=== PATIENT | male | born 1945 | race Caucasian/White ===

== ENCOUNTER → 2017-09-13 | Day surgery (SDC) | payer OTHER ==
[2017-09-06 15:10] VITALS: BMI 32.0
[~2017-09-13] VITALS: Ht 180.3 cm; Wt 106.8 kg
[~2017-09-13] MED LIST: ALL300 PO; AMLO-114 PO; AMOX500C3 PO; ATOR-26 PO; CARV25TA2 PO; CHOL2000 PO; CLON0.3D5 PO; FERR325T5 PO; GLIM4TAB PO; LACT1LOT3; LATA0.5S OP; LEVO50TA6 PO; LIDOCAINE HCL 2% 2 ML VIAL (20MG/ML) ONE; LISI40TA PO; LSX40 PO; MAGN400T6 PO; METF-384 PO; ONDANSETRON INJ 2 MG/ML 2 ML VIAL IV PRN; PIOG1TAB20 PO; POTA10CA28 PO; PRLSR20 PO; PROPOFOL IV EMULSION 10 MG/ML 20 ML VIAL ONE; TRAM-10 PO
[2017-09-13 12:53] VITALS: Ht 180.3 cm; Wt 106.8 kg
--- NOTE | 2017-09-13 13:07 | Endo History and Physical ---
History & Physical Date of Service: September 13, 2017. Chief Complaint: BARRETTS IRON DEFICIENCY ANEMIA Referring Physician: DR STRICKLAND History of Present Illness Patient referred for an upper endoscopy due to history of Fajardo's esophagus. He also has a question of anemia with iron deficiency although ferritin levels are not available for review. Past Medical History Diabetes, Arthritis, Reflux, High Cholesterol, Sleep Apnea, Heart Disease, CHF, Hypertension, Kidney Disease, Valve Replacement Past Surgical History Hx Cardiac Surgery: Yes (AORTIC VALVE REPLACEMENT 2009) Hx Internal Defibrillator: No Hx Pacemaker: No Hx Abdominal Surgery: No Hx of Implantable Prosthesis: No Hx Post-Op Nausea and Vomiting: No Hx Cancer Surgery: No Hx Thoracic Surgery: No Hx Orthopedic: Yes (LT/RT TKA) Hx Urinary Tract Surgery: No Family History None Social History Smoking Status: Former Smoker Hx Substance Use: No Hx Alcohol Use: Yes (MINIMAL) Allergies Coded Allergies: Aspirin (Verified Adverse Reaction, Severe, gi bleed, 09/13/17) Warfarin (Verified Adverse Reaction, Unknown, "bleeding with anticoagulants", 09/13/17) Current Medications Reported Home Medications Medications Dose Route/Sig Max Daily Dose Days Date Category Glucophage (Metformin Hcl) 1,000 Mg Tab 1,000 Mg PO BID 09/06/17 Reported Mag-Ox (Magnesium Oxide) 400 Mg Tab 400 Mg PO DAILY 09/06/17 Reported Vitamin D3 (Cholecalciferol) 2,000 Unit Cap 1 Cap PO DAILY 30 09/06/17 Reported Amoxil (Amoxicillin) 500 Mg Cap 500 Mg PO UD 09/06/17 Reported Amlactin (Lactic Acid (Ammonium Lactate)) 12 % Lot 09/06/17 Reported Furosemide 40 Mg Tab 1.5 Tabs PO BID 09/06/17 Reported Clonidine Hcl 0.3 Mg/24 Hr Dis 1 Tab PO BID 09/06/17 Reported Pioglitazone Hcl 45 Mg Tab 1 Tab PO QAM 09/06/17 Reported Levothyroxine Sodium 50 Mcg Tab 1 Tab PO DAILY 30 09/06/17 Reported Ferrous Sulfate 325 Mg Tab 1 Tab PO QID 09/06/17 Reported Allopurinol 300 Mg Tab 1 Tab PO DAILY 09/06/17 Reported Coreg (Carvedilol) 25 Mg Tab 2 Tab PO BID 90 09/06/17 Reported Xalatan 0.005% Oph Criss (Latanoprost) 0.005 % Criss 1 Drops OP HS 09/06/17 Reported Micro-K Ext Rel (Potassium Chloride) 10 Meq Capcr 10 Meq PO BID 02/21/16 Reported Ultram (Tramadol HCl) 50 Mg Tab 50 Mg PO Q4H PRN 09/17/13 Reported Lipitor (Atorvastatin Calcium) 80 Mg Tab 80 Mg PO QPM 09/17/13 Reported Norvasc (Amlodipine Besylate) 10 Mg Tab 10 Mg PO QAM 09/17/13 Reported Amaryl (Glimepiride) 4 Mg Tab 4 Mg PO QAM 12/09/11 Reported Zestril (Lisinopril) 40 Mg Tab 40 Mg PO QAM 12/09/11 Reported Prilosec (Omeprazole) 20 Mg Capcr 20 Mg PO DAILY 02/23/10 Reported Vital Signs Weight (Kilograms): 106.82 Height (Feet): 5 Height (Inches): 11 Date Time Temp Pulse Resp B/P (MAP) Pulse Ox O2 Delivery O2 Flow Rate FiO2 09/13/17 13:00 36.6 63 18 156/73 (100) 96 Room Air Physical Exam General Appearance: no apparent distress Respiratory/Chest: Auscultation: breath sounds normal Abdomen: Inspection & Palpation: soft Assessment and Plan Upper endoscopy for follow-up evaluation of Fajardo's esophagus and persistent anemia. We discussed the risks to include bleeding, infection, perforation and pain.
--- NOTE | 2017-09-13 13:31 | GI REPORT ---
Patient Name: Dank Lim Procedure Date: 09/13/2017 1:05 PM Date of : 1945 Admit Type: Outpatient Age: 71 Gender: Male Attending MD: Izzy Hinton DO Procedure: Upper GI endoscopy Providers: Izzy Hinton DO Referring MD: Sandy Summers Indications: Iron deficiency anemia secondary to chronic blood loss, Follow-up of Fajardo's esophagus Medicines: Monitored Anesthesia Care Complications: No immediate complications. Estimated blood loss: Minimal. Estimated Blood Loss: Estimated blood loss was minimal. Procedure: Pre-Anesthesia Assessment: - Prior to the procedure, a History and Physical was performed, and patient medications, allergies and sensitivities were reviewed. The patient's tolerance of previous anesthesia was reviewed. - The risks and benefits of the procedure and the sedation options and risks were discussed with the patient. All questions were answered and informed consent was obtained. - Patient identification and proposed procedure were verified prior to the procedure by the physician, the nurse and the tile burner. The procedure was verified in the procedure room. - Pre-procedure physical examination revealed no contraindications to sedation. - ASA Grade Assessment: III - A patient with severe systemic disease. - After reviewing the risks and benefits, the patient was deemed in satisfactory condition to undergo the procedure. - The anesthesia plan was to use monitored anesthesia care (MAC). - Immediately prior to administration of medications, the patient was re-assessed for adequacy to receive sedatives. - The heart rate, respiratory rate, oxygen saturations, blood pressure, adequacy of pulmonary ventilation, and response to care were monitored throughout the procedure. - The physical status of the patient was re-assessed after the procedure. After obtaining informed consent, the endoscope was passed under direct vision. Throughout the procedure, the patient's blood pressure, pulse, and oxygen saturations were monitored continuously. The scope was introduced through the mouth, and advanced to the second part of duodenum. The upper GI endoscopy was accomplished without difficulty. The patient tolerated the procedure well. Findings: The upper third of the esophagus and middle third of the esophagus were normal. The esophagus and gastroesophageal junction were examined with white light. There were esophageal mucosal changes classified as Fajardo's stage C0-M2 per [place] criteria. These changes involved the mucosa at the upper extent of the gastric folds (40 cm from the incisors) extending to the Z-line (38 cm from the incisors). Two tongues of salmon-colored mucosa were present from 38 to 40 cm. The maximum longitudinal extent of these esophageal mucosal changes was 2 cm in length. Mucosa was biopsied with a cold forceps for histology. One specimen bottle was sent to pathology. Estimated blood loss was minimal. A single 10 mm semi-sessile polyp with no bleeding and no stigmata of recent bleeding was found in the cardia. Biopsies were taken with a cold forceps for histology. Estimated blood loss was minimal. The gastric fundus and gastric body were normal. Diffuse mild inflammation characterized by erythema and granularity was found in the gastric antrum. Biopsies were taken with a cold forceps for histology. Estimated blood loss was minimal. The examined duodenum was normal. Impression: - Normal upper third of esophagus and middle third of esophagus. - Esophageal mucosal changes classified as Fajardo's stage C0-M2 per [place] criteria. Biopsied. - A single gastric polyp. Biopsied. - Normal gastric fundus and gastric body. - Gastritis. Biopsied. - Normal examined duodenum. Recommendation: - Discharge patient to home (ambulatory). - Advance diet as tolerated today. - Await pathology results. - Repeat upper endoscopy in 3 years for surveillance based on pathology results. - No bleeding source identified. Will obtain a ferritin level today, if normal would suspect anemia is related to chronic disease (renal insufficency). Otherwise, would re-evalute antiplatelet agents and NSAID use. Izzy Hinton D.O. Izzy Hinton, 09/13/2017 1:31:03 PM This report has been signed electronically. Note Initiated On: 09/13/2017 1:05 PM Number of Addenda: 0 I attest to the content of the Intraoperative Record and orders documented therein, exceptions below {[id number]}
--- NOTE | 2017-09-13 13:32 | Discharge Instructions ---
Endoscopy Patient Instructions Date / Procedure(s) Performed September 13, 2017. EGD Allergy Information Coded Allergies: Aspirin (Verified Adverse Reaction, Severe, gi bleed, 09/13/17) Warfarin (Verified Adverse Reaction, Unknown, "bleeding with anticoagulants", 09/13/17) Discharge Date / Findings September 13, 2017. Short segment Fajardo's esophagus One gastric polyp, biopsied Mild gastritis of the antrum (likely medication related) Medication Instructions Stopped Medication(s): METFORMIN VITAMINS Reported Home Medications Medications Dose Route/Sig Max Daily Dose Days Date Category Glucophage (Metformin Hcl) 1,000 Mg Tab 1,000 Mg PO BID 09/06/17 Reported Mag-Ox (Magnesium Oxide) 400 Mg Tab 400 Mg PO DAILY 09/06/17 Reported Vitamin D3 (Cholecalciferol) 2,000 Unit Cap 1 Cap PO DAILY 30 09/06/17 Reported Amoxil (Amoxicillin) 500 Mg Cap 500 Mg PO UD 09/06/17 Reported Amlactin (Lactic Acid (Ammonium Lactate)) 12 % Lot 09/06/17 Reported Furosemide 40 Mg Tab 1.5 Tabs PO BID 09/06/17 Reported Clonidine Hcl 0.3 Mg/24 Hr Dis 1 Tab PO BID 09/06/17 Reported Pioglitazone Hcl 45 Mg Tab 1 Tab PO QAM 09/06/17 Reported Levothyroxine Sodium 50 Mcg Tab 1 Tab PO DAILY 30 09/06/17 Reported Ferrous Sulfate 325 Mg Tab 1 Tab PO QID 09/06/17 Reported Allopurinol 300 Mg Tab 1 Tab PO DAILY 09/06/17 Reported Coreg (Carvedilol) 25 Mg Tab 2 Tab PO BID 90 09/06/17 Reported Xalatan 0.005% Oph Criss (Latanoprost) 0.005 % Criss 1 Drops OP HS 09/06/17 Reported Micro-K Ext Rel (Potassium Chloride) 10 Meq Capcr 10 Meq PO BID 02/21/16 Reported Ultram (Tramadol HCl) 50 Mg Tab 50 Mg PO Q4H PRN 09/17/13 Reported Lipitor (Atorvastatin Calcium) 80 Mg Tab 80 Mg PO QPM 09/17/13 Reported Norvasc (Amlodipine Besylate) 10 Mg Tab 10 Mg PO QAM 09/17/13 Reported Amaryl (Glimepiride) 4 Mg Tab 4 Mg PO QAM 12/09/11 Reported Zestril (Lisinopril) 40 Mg Tab 40 Mg PO QAM 12/09/11 Reported Prilosec (Omeprazole) 20 Mg Capcr 20 Mg PO DAILY 02/23/10 Reported Provider Instructions Activity Restrictions - No exercising or heavy lifting for 24 hours. - Do not drink alcohol the day of the procedure. - Do not drive a car or operate machinery until the day after the procedure. - Do not make any important decisions or sign important papers in 24 hours after the procedure. Following Day: - Return to full activity which may include returning to work/school. Diet Start your diet with liquids and light foods (jello, soup, juice, toast). Then eat your usual diet if not nauseated. Treatment For Common After Affects For mild abdominal pain, bloating, or excessive gas: - Rest - Eat lightly - Lie on right side Follow-Up Information Follow-up with DR STRICKLAND as scheduled Ferritin level ordered (if normal would look for other causes of anemia, if low would consider evaluation of medications as patient on dual antiplatelet therapy ) Anesthesia Information What You Should Know You have had a procedure that required some medicine to reduce anxiety and discomfort. This treatment is called moderate sedation. After receiving the treatment, you may be sleepy, but you will be able to breathe on your own. The effects of the treatment may last for several hours. Follow these instructions along with Activity/Diet recommendations noted above: * Do NOT do anything where dizziness or clumsiness would be dangerous. * Rest quietly at home today, then you can be up and about tomorrow. * Have a responsible person stay with you the rest of today. * You may have had an I.V. today. If so, you may take the dressing off later today. Recommendations Call your doctor if: * Trouble breathing * Continuous vomiting for more than 24 hours * Temperature above 101 degrees * Severe abdominal pain or bloating * Pain not relieved by pain medicine ordered * There is increased drainage or redness from any incision * A large amount of rectal bleeding greater than 2-3 tablespoons. (If you had a polyp/s removed or have hemorrhoids, a small amount of blood - from the rectum is to be expected.) * You have any unanswered questions or concerns. IN THE EVENT OF A SERIOUS EMERGENCY, GO TO THE NEAREST EMERGENCY ROOM Your discharge instructions were prepared by provider Izzy Hinton. Patient Instructions Signature Page Dank Lim Patient (or Guardian) Signature/Date: I have read and understand the instructions given to me by my caregivers. Caregiver/RN/Doctor Signature/Date: The above-named patient and/or guardian has received patient instructions on this date. + Original Patient Signature Page (only) stays with chart. Please make copy for patient.
[2017-09-13 13:52] VITALS: BP 171/85; PULSE 63; O2SAT 97
--- NOTE | 2017-09-13 14:15 | Anesthesiology Progress Note ---
Anesthesia Post Op Note Date & Time September 13, 2017 at 14:15 Vital Signs Pain Intensity: 0 Vital Signs Past 12 Hours Date Time Temp Pulse Resp B/P (MAP) Pulse Ox O2 Delivery O2 Flow Rate FiO2 09/13/17 13:52 63 20 171/85 (113) 97 Room Air 09/13/17 13:42 63 18 154/79 (104) 97 Room Air 09/13/17 13:32 60 18 131/67 (88) 98 Room Air 09/13/17 13:00 36.6 63 18 156/73 (100) 96 Room Air Notes Mental Status: alert / awake / arousable, participated in evaluation Pt Amnestic to Procedure: Yes Nausea / Vomiting: adequately controlled Pain: adequately controlled Airway Patency, RR, SpO2: stable & adequate BP & HR: stable & adequate Hydration State: stable & adequate Anesthetic Complications: no major complications apparent
== END | disposition home or self-care (01) ==
LOC: C.GI 12:31
PROVIDERS: ATTEND Internal Medicine Gastroenterology
DX: D50.0 Iron deficiency anemia secondary to blood loss (chronic) (principal); Z09 Encounter for follow-up examination after completed treatment for conditions other than malignant neoplasm; K29.70 Gastritis, unspecified, without bleeding; G47.33 Obstructive sleep apnea (adult) (pediatric); I12.9 Hypertensive chronic kidney disease with stage 1 through stage 4 chronic kidney disease, or unspecified chronic kidney disease; N18.2 Chronic kidney disease, stage 2 (mild); E11.22 Type 2 diabetes mellitus with diabetic chronic kidney disease; Z96.653 Presence of artificial knee joint, bilateral; Z88.5 Allergy status to narcotic agent; Z88.8 Allergy status to other drugs, medicaments and biological substances; H40.9 Unspecified glaucoma; Z79.899 Other long term (current) drug therapy

== ENCOUNTER → 2018-01-03 | Day surgery (SDC) | payer OTHER ==
[2017-12-27 13:12] VITALS: BMI 32.0
[~2018-01-03] VITALS: Ht 180.3 cm; Wt 106.8 kg
[~2018-01-03] MED LIST changes: -AMLO-114 PO; +AMLO10TA3 PO; -CLON0.3D5 PO; +CLON0.3T PO; +CYAN100020 PO; +FRS/80 PO; +LISI-461 PO; -LISI40TA PO; -LSX40 PO; -METF-384 PO; -POTA10CA28 PO; +SPIR25TA PO
[2018-01-03 08:57] VITALS: Ht 180.3 cm; Wt 106.8 kg
--- NOTE | 2018-01-03 09:02 | Endo History and Physical ---
History & Physical Date of Service: Jan 03, 2018. Chief Complaint: Gastric polyp Referring Physician: DR. ORELLANA History of Present Illness Patient presents for follow-up evaluation of a gastric polyp. We are planning to do upper endoscopy with endoscopic mucosal resection if found to be amenable to this. Past Medical History Diabetes, Arthritis, Reflux, High Cholesterol, Sleep Apnea, Heart Disease, CHF, Hypertension, Kidney Disease, Valve Replacement Past Surgical History Hx Cardiac Surgery: Yes (AORTIC VALVE REPLACEMENT 2009) Hx Internal Defibrillator: No Hx Pacemaker: No Hx Abdominal Surgery: No Hx Post-Op Nausea and Vomiting: No Hx Cancer Surgery: No Hx Thoracic Surgery: No Hx Orthopedic: Yes (LT/RT TKA) Hx Urinary Tract Surgery: No Family History None Social History Smoking Status: Former Smoker Hx Substance Use: No Hx Alcohol Use: Yes (MINIMAL) Allergies Coded Allergies: Aspirin (Verified Adverse Reaction, Severe, gi bleed, 01/03/18) Warfarin (Verified Adverse Reaction, Unknown, "bleeding with anticoagulants", 01/03/18) Current Medications Reported Home Medications Medications Dose Route/Sig Max Daily Dose Days Date Category Vitamin B12 (Cyanocobalamin) 1,000 Mcg Tab 1 Tab PO QAM 12/27/17 Reported Aldactone (Spironolactone) 25 Mg Tab 12.5 Mg PO QAM 12/27/17 Reported Lasix (Furosemide) 80 Mg Tab 80 Mg PO QAM 12/27/17 Reported Catapres (Clonidine Hcl) 0.3 Mg Tab 0.3 Mg PO BID 12/27/17 Reported Lisinopril 10 Mg Tab 5 Mg PO QAM 12/27/17 Reported Mag-Ox (Magnesium Oxide) 400 Mg Tab 400 Mg PO DAILY 09/06/17 Reported Vitamin D3 (Cholecalciferol) 2,000 Unit Cap 1 Cap PO QAM 09/06/17 Reported Amoxil (Amoxicillin) 500 Mg Cap 500 Mg PO UD 09/06/17 Reported Amlactin (Lactic Acid (Ammonium Lactate)) 12 % Lot 09/06/17 Reported Pioglitazone Hcl 45 Mg Tab 1 Tab PO QAM 09/06/17 Reported Levothyroxine Sodium 50 Mcg Tab 1 Tab PO QAM 09/06/17 Reported Ferrous Sulfate 325 Mg Tab 1 Tab PO TID 09/06/17 Reported Allopurinol 300 Mg Tab 1 Tab PO QAM 09/06/17 Reported Coreg (Carvedilol) 25 Mg Tab 2 Tab PO BID 09/06/17 Reported Xalatan 0.005% Oph Criss (Latanoprost) 0.005 % Criss 1 Drops OP HS 09/06/17 Reported Ultram (Tramadol HCl) 50 Mg Tab 50 Mg PO Q4H PRN 09/17/13 Reported Lipitor (Atorvastatin Calcium) 80 Mg Tab 80 Mg PO QPM 09/17/13 Reported Norvasc (Amlodipine Besylate) 10 Mg Tab 10 Mg PO QAM 09/17/13 Reported Amaryl (Glimepiride) 4 Mg Tab 4 Mg PO QAM 12/09/11 Reported Prilosec (Omeprazole) 20 Mg Capcr 20 Mg PO QAM 02/23/10 Reported Vital Signs Weight (Kilograms): 106.82 Height (Feet): 5 Height (Inches): 11 Date Time Temp Pulse Resp B/P (MAP) Pulse Ox O2 Delivery O2 Flow Rate FiO2 01/03/18 08:58 36.3 58 20 134/63 (86) 96 Room Air Physical Exam General Appearance: no apparent distress Respiratory/Chest: Auscultation: breath sounds normal Cardiovascular: Heart Auscultation: II/ VANESSA Abdomen: Inspection & Palpation: soft Liver: non-tender Assessment and Plan Evaluation for a gastric polyp seen on prior examination. We are planning to do upper endoscopy with endoscopic mucosal resection. We discussed the risks to include include bleeding, infection, perforation, pain and need for follow- up studies.
--- NOTE | 2018-01-03 09:21 | GI REPORT ---
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 Estimated blood loss: Minimal. Estimated Blood Loss: Estimated blood loss was minimal. Procedure: Pre-Anesthesia Assessment: - Prior to the procedure, a History and Physical was performed, and patient medications, allergies and sensitivities were reviewed. The patient's tolerance of previous anesthesia was reviewed. - The risks and benefits of the procedure and the sedation options and risks were discussed with the patient. All questions were answered and informed consent was obtained. - Patient identification and proposed procedure were verified prior to the procedure by the physician, the nurse and the vehicle window tinter. The procedure was verified in the procedure room. - Pre-procedure physical examination revealed no contraindications to sedation. - ASA Grade Assessment: III - A patient with severe systemic disease. - After reviewing the risks and benefits, the patient was deemed in satisfactory condition to undergo the procedure. - The anesthesia plan was to use monitored anesthesia care (MAC). - Immediately prior to administration of medications, the patient was re-assessed for adequacy to receive sedatives. - The heart rate, respiratory rate, oxygen saturations, blood pressure, adequacy of pulmonary ventilation, and response to care were monitored throughout the procedure. - The physical status of the patient was re-assessed after the procedure. After obtaining informed consent, the endoscope was passed under direct vision. Throughout the procedure, the patient's blood pressure, pulse, and oxygen saturations were monitored continuously. The Scope was introduced through the mouth, and advanced to the third part of duodenum. The upper GI endoscopy was accomplished without difficulty. The patient tolerated the procedure well. Findings: The esophagus and gastroesophageal junction were examined with white light. There were esophageal mucosal changes secondary to established Fajardo's disease. These changes involved the mucosa at the upper extent of the gastric folds (39 cm from the incisors) extending to the Z-line (37 cm from the incisors). Circumferential salmon-colored mucosa was present from 37 to 39 cm. The maximum longitudinal extent of these esophageal mucosal changes was 2 cm in length. A medium-sized hiatal hernia was found. The proximal extent of the gastric folds (end of tubular esophagus) was 39 cm from the incisors. The hiatal narrowing was 42 cm from the incisors. The Z-line was 37 cm from the incisors. A single 10 mm semi-sessile polyp with no bleeding and no stigmata of recent bleeding was found in the cardia. One band was successfully placed. There was no bleeding during the procedure. Estimated blood loss was minimal. I elected to allow the polyp to autoamputate as prior biopsies were hyperplastic. Diffuse mild inflammation characterized by erythema and granularity was found in the entire examined stomach. The examined duodenum was normal. Impression: - Esophageal mucosal changes secondary to established Fajardo's disease. - Medium-sized hiatal hernia. - A single gastric polyp. Banded, allowed to autoamputate. - Gastritis. - Normal examined duodenum. - No specimens collected. Recommendation: - Discharge patient to home (ambulatory). - Advance diet as tolerated today. - Use Prilosec (omeprazole) 20 mg PO BID for 6 weeks. - Use sucralfate tablets 1 gram PO BID for 6 weeks. - Repeat EGD in 6 months. Izzy Hinton D.O. Izzy Hinton DO 01/03/2018 9:20:56 AM This report has been signed electronically. Note Initiated On: 01/03/2018 9:07 AM Number of Addenda: 0 I attest to the content of the Intraoperative Record and orders documented therein, exceptions below {[id number]}
--- NOTE | 2018-01-03 09:31 | Discharge Instructions ---
Endoscopy Patient Instructions Date / Procedure(s) Performed Jan 03, 2018. EGD Allergy Information Coded Allergies: Aspirin (Verified Adverse Reaction, Severe, gi bleed, 01/03/18) Warfarin (Verified Adverse Reaction, Unknown, "bleeding with anticoagulants", 01/03/18) Discharge Date / Findings Jan 03, 2018. Hiatal hernia Barretts esophagus Gastitis 10 mm gastric polyp (in cardia, band ligation performed today) Medication Instructions Stopped Medication(s): ONLY TAKE BP PILLS Reported Home Medications Medications Dose Route/Sig Max Daily Dose Days Date Category Vitamin B12 (Cyanocobalamin) 1,000 Mcg Tab 1 Tab PO QAM 12/27/17 Reported Aldactone (Spironolactone) 25 Mg Tab 12.5 Mg PO QAM 12/27/17 Reported Lasix (Furosemide) 80 Mg Tab 80 Mg PO QAM 12/27/17 Reported Catapres (Clonidine Hcl) 0.3 Mg Tab 0.3 Mg PO BID 12/27/17 Reported Lisinopril 10 Mg Tab 5 Mg PO QAM 12/27/17 Reported Mag-Ox (Magnesium Oxide) 400 Mg Tab 400 Mg PO DAILY 09/06/17 Reported Vitamin D3 (Cholecalciferol) 2,000 Unit Cap 1 Cap PO QAM 09/06/17 Reported Amoxil (Amoxicillin) 500 Mg Cap 500 Mg PO UD 09/06/17 Reported Amlactin (Lactic Acid (Ammonium Lactate)) 12 % Lot 09/06/17 Reported Pioglitazone Hcl 45 Mg Tab 1 Tab PO QAM 09/06/17 Reported Levothyroxine Sodium 50 Mcg Tab 1 Tab PO QAM 09/06/17 Reported Ferrous Sulfate 325 Mg Tab 1 Tab PO TID 09/06/17 Reported Allopurinol 300 Mg Tab 1 Tab PO QAM 09/06/17 Reported Coreg (Carvedilol) 25 Mg Tab 2 Tab PO BID 09/06/17 Reported Xalatan 0.005% Oph Criss (Latanoprost) 0.005 % Criss 1 Drops OP HS 09/06/17 Reported Ultram (Tramadol HCl) 50 Mg Tab 50 Mg PO Q4H PRN 09/17/13 Reported Lipitor (Atorvastatin Calcium) 80 Mg Tab 80 Mg PO QPM 09/17/13 Reported Norvasc (Amlodipine Besylate) 10 Mg Tab 10 Mg PO QAM 09/17/13 Reported Amaryl (Glimepiride) 4 Mg Tab 4 Mg PO QAM 12/09/11 Reported Prilosec (Omeprazole) 20 Mg Capcr 20 Mg PO QAM 02/23/10 Reported Provider Instructions Activity Restrictions - No exercising or heavy lifting for 24 hours. - Do not drink alcohol the day of the procedure. - Do not drive a car or operate machinery until the day after the procedure. - Do not make any important decisions or sign important papers in 24 hours after the procedure. Following Day: - Return to full activity which may include returning to work/school. Diet Start your diet with liquids and light foods (jello, soup, juice, toast). Then eat your usual diet if not nauseated. Treatment For Common After Affects For mild abdominal pain, bloating, or excessive gas: - Rest - Eat lightly - Lie on right side Follow-Up Information Omeprazole 20 mg twice daily for 6 weeks, then 1 time daily Carafate 1 gm twice daily for 6 weeks Repeat upper endoscopy in 6 months. Anesthesia Information What You Should Know You have had a procedure that required some medicine to reduce anxiety and discomfort. This treatment is called moderate sedation. After receiving the treatment, you may be sleepy, but you will be able to breathe on your own. The effects of the treatment may last for several hours. Follow these instructions along with Activity/Diet recommendations noted above: * Do NOT do anything where dizziness or clumsiness would be dangerous. * Rest quietly at home today, then you can be up and about tomorrow. * Have a responsible person stay with you the rest of today. * You may have had an I.V. today. If so, you may take the dressing off later today. Recommendations Call your doctor if: * Trouble breathing * Continuous vomiting for more than 24 hours * Temperature above 101 degrees * Severe abdominal pain or bloating * Pain not relieved by pain medicine ordered * There is increased drainage or redness from any incision * A large amount of rectal bleeding greater than 2-3 tablespoons. (If you had a polyp/s removed or have hemorrhoids, a small amount of blood - from the rectum is to be expected.) * You have any unanswered questions or concerns. IN THE EVENT OF A SERIOUS EMERGENCY, GO TO THE NEAREST EMERGENCY ROOM Your discharge instructions were prepared by provider Izzy Hinton. Patient Instructions Signature Page Dank Lim Patient (or Guardian) Signature/Date: I have read and understand the instructions given to me by my caregivers. Caregiver/RN/Doctor Signature/Date: The above-named patient and/or guardian has received patient instructions on this date. + Original Patient Signature Page (only) stays with chart. Please make copy for patient.
--- NOTE | 2018-01-03 09:33 | Anesthesiology Progress Note ---
Anesthesia Post Op Note Date & Time Jan 03, 2018 at 09:33 Vital Signs Pain Intensity: 0 Vital Signs Past 12 Hours Date Time Temp Pulse Resp B/P (MAP) Pulse Ox O2 Delivery O2 Flow Rate FiO2 01/03/18 09:18 36.8 61 16 128/64 (85) 95 Room Air 01/03/18 08:58 36.3 58 20 134/63 (86) 96 Room Air Notes Mental Status: alert / awake / arousable, participated in evaluation Pt Amnestic to Procedure: Yes Nausea / Vomiting: adequately controlled Pain: adequately controlled Airway Patency, RR, SpO2: stable & adequate BP & HR: stable & adequate Hydration State: stable & adequate Anesthetic Complications: no major complications apparent
[2018-01-03 09:49] VITALS: BP 149/72; PULSE 60; O2SAT 97
== END | disposition home or self-care (01) ==
LOC: C.GI 08:13
PROVIDERS: ATTEND Internal Medicine Gastroenterology
DX: K44.9 Diaphragmatic hernia without obstruction or gangrene (principal); K31.7 Polyp of stomach and duodenum; K29.70 Gastritis, unspecified, without bleeding; G47.33 Obstructive sleep apnea (adult) (pediatric); E11.9 Type 2 diabetes mellitus without complications; I10 Essential (primary) hypertension; N18.9 Chronic kidney disease, unspecified; Z79.01 Long term (current) use of anticoagulants; Z79.82 Long term (current) use of aspirin; E78.00 Pure hypercholesterolemia, unspecified; K21.9 Gastro-esophageal reflux disease without esophagitis; I50.9 Heart failure, unspecified; Z87.891 Personal history of nicotine dependence; N40.0 Benign prostatic hyperplasia without lower urinary tract symptoms

== ENCOUNTER 2020-10-14 18:06 | Inpatient (IN) ==
[2020-10-14] MEDS ORDERED: SODIUM CHLORIDE 0.9% 1000ML 1,000 ML IV ONE (19:01)
--- NOTE | 2020-10-14 19:09 | Emergency Department Note ---
History of Present Illness General Chief complaint: Referred by Doctor Stated complaint: POTASSIUM LEVELS CHECKED, REF BY DR Time Seen by Provider: 10/14/20 18:55 Source: patient Mode of arrival: ambulatory Limitations: no limitations History of Present Illness Provider complaint: Hyperkalemia This is a 74-year-old male who presents to the ED with a chief complaint of elevated potassium levels. The patient states that he had his blood work done last week and then again today. Today his potassium was 6.3 with a BUN of 59 and a creatinine of 2.5. Last week his potassium was 5 and his BUN was 47 with a creatinine of 2.0. His doctor stopped his spironolactone but decided that he should come into the ED for evaluation and admission for his hyperkalemia. The patient denies any specific complaints at this time. He does state that he has had some decreased sensation for thirst and has been drinking slightly less this past week. Home Medications Medication Instructions Recorded Confirmed Type Novolin N NPH U-100 Insulin 25 unit SUBCUT BIDM 09/06/18 10/14/20 History allopurinol 300 mg PO QAM 09/06/18 10/14/20 History amlodipine 10 mg PO QAM 09/06/18 10/14/20 History atorvastatin 80 mg PO QPM 09/06/18 10/14/20 History carvedilol 50 mg PO BID 09/06/18 10/14/20 History cholecalciferol (vitamin D3) 2,000 unit PO QAM 09/06/18 10/14/20 History clonidine HCl 0.3 mg PO BID 09/06/18 10/14/20 History cyanocobalamin (vitamin B-12) 1,000 mcg PO QAM 09/06/18 10/14/20 History [Vitamin B-12] ferrous sulfate 325 mg PO QPM 09/06/18 10/14/20 History furosemide 80 mg PO QAM 09/06/18 10/14/20 History latanoprost [Xalatan] 1 drp OPHTHALMIC (EYE) PM 09/06/18 10/14/20 History levothyroxine 50 mcg PO QAM 09/06/18 10/14/20 History lisinopril 10 mg PO .ON HOLD 09/06/18 10/14/20 History magnesium oxide 400 mg PO QAM 09/06/18 10/14/20 History omeprazole 20 mg PO QAM 09/06/18 10/14/20 History pioglitazone 45 mg PO QAM 09/06/18 10/14/20 History spironolactone 12.5 mg PO .ON HOLD 09/06/18 10/14/20 History tramadol 50 mg PO BID 09/06/18 10/14/20 History metformin 500 mg PO BIDM 03/31/20 10/14/20 History Allergies Allergy/AdvReac Type Severity Reaction Status Date / Time aspirin AdvReac Severe gi bleed Verified 10/14/20 20:17 warfarin AdvReac Severe "bleeding Verified 10/14/20 20:17 with anticoagulants" Past Med/Surg History Medical History Barretts esophagus Cardiac murmur Chronic kidney disease, stage 3 Colon polyps Degenerative disc disease Diabetes mellitus, type 2 GERD (gastroesophageal reflux disease) GI bleed 2009 d/t coumadin use Glaucoma of both eyes Gout Hearing deficit Hyperlipidemia Hypertension Hypothyroidism On home oxygen therapy 2.5L at night Osteoarthritis Sleep apnea bipap with 2.5L oxygen Surgical History History of aortic valve replacement 2009 @ [facility] [place] History of arthroscopy of left knee x2 History of arthroscopy of right knee History of bilateral cataract extraction History of cardiac cath 2009 @ [facility] no stents History of colonoscopy History of esophagogastroduodenoscopy (EGD) History of tooth extraction all upper teeth, most of lower teeth History of total left knee replacement (TKR) History of total right knee replacement (TKR) Family History Mother Family history of diabetes mellitus Other No family history of adverse response to anesthesia Social History Smoking Status: Never smoker Second Hand Exposure: Yes ( smoked); Hx Alcohol Use: No Hx Substance Use: No Preferred Language: Syrian Communication Ability: Effective Education Administrative Assistant Required: No Beliefs That Will Affect Care: None Current Living Situation: Spouse Feels Safe at Home: Yes Assistive Devices: BiPap, Denture - Upper, Denture - Lower, Glasses and Oxygen - at Night Review of Systems A total of 10 systems reviewed and were otherwise negative Physical Exam Vital Signs Vital Signs - 24 hr 10/14/20 18:10 10/14/20 19:08 10/14/20 19:28 Temperature 36.3 C L Temperature Source Temporal Artery Scan Pulse Rate 58 L 61 56 L Pulse Rate from SpO2 Sensor 56 L 56 L Respiratory Rate 20 21 19 Respiratory Effort / Characteristics Non-Labored Spontaneous Respiratory Depth Normal Blood Pressure 104/58 L 130/55 L Blood Pressure Mean 73 80 Pulse Oximetry 93 97 97 Oxygen Delivery Method Room Air Room Air Room Air Sepsis Recent Fever Within 48 Hours No Sepsis New/Unexplained Change in Mental Status N/A Sepsis Action Taken by Nursing No Action Required 10/14/20 19:30 10/14/20 19:31 10/14/20 19:40 Temperature Temperature Source Pulse Rate 54 L 64 56 L Pulse Rate from SpO2 Sensor 54 L 57 L 56 L Respiratory Rate 15 22 20 Respiratory Effort / Characteristics Respiratory Depth Blood Pressure 120/59 L Blood Pressure Mean 79 Pulse Oximetry 97 97 97 Oxygen Delivery Method Room Air Room Air Sepsis Recent Fever Within 48 Hours Sepsis New/Unexplained Change in Mental Status Sepsis Action Taken by Nursing 10/14/20 19:50 10/14/20 20:00 10/14/20 20:01 Temperature Temperature Source Pulse Rate 55 L 54 L 56 L Pulse Rate from SpO2 Sensor 55 L 55 L 56 L Respiratory Rate 20 17 21 Respiratory Effort / Characteristics Respiratory Depth Blood Pressure 123/56 L Blood Pressure Mean 78 Pulse Oximetry 96 97 97 Oxygen Delivery Method Sepsis Recent Fever Within 48 Hours Sepsis New/Unexplained Change in Mental Status Sepsis Action Taken by Nursing 10/14/20 20:02 10/14/20 20:10 10/14/20 20:20 Temperature Temperature Source Pulse Rate 57 L 55 L 54 L Pulse Rate from SpO2 Sensor 57 L 57 L 55 L Respiratory Rate 22 20 21 Respiratory Effort / Characteristics Respiratory Depth Blood Pressure Blood Pressure Mean Pulse Oximetry 97 96 97 Oxygen Delivery Method Sepsis Recent Fever Within 48 Hours Sepsis New/Unexplained Change in Mental Status Sepsis Action Taken by Nursing 10/14/20 20:30 10/14/20 20:40 10/14/20 20:50 Temperature Temperature Source Pulse Rate 56 L 56 L 55 L Pulse Rate from SpO2 Sensor 56 L 57 L 56 L Respiratory Rate 19 20 18 Respiratory Effort / Characteristics Respiratory Depth Blood Pressure 121/58 L Blood Pressure Mean 79 Pulse Oximetry 96 97 96 Oxygen Delivery Method Room Air Sepsis Recent Fever Within 48 Hours Sepsis New/Unexplained Change in Mental Status Sepsis Action Taken by Nursing CONSTITUTIONAL/VITAL SIGNS: Reviewed / noted above. GENERAL: Non-toxic in appearance. INTEGUMENTARY: Warm, dry, and [place]. HEAD: Normocephalic. EYES: without scleral icterus or trauma. ENT/OROPHARYNX: clear and moist. LYMPHADENOPATHY/NECK: Is supple without lymphadenopathy or meningismus. RESPIRATORY: Lungs clear and equal. CARDIOVASCULAR: Regular rate and rhythm. GI/ABDOMEN: Soft and nontender. No organomegaly or pulsatile mass. No rebound or guarding. Normal bowel sounds. EXTREMITIES: Warm and well perfused. Mild bilateral pitting edema. BACK: No CVA tenderness. NEUROLOGICAL: Intact without focal deficits. PSYCHIATRIC: normal affect. MUSCULOSKELETAL: Normally developed with good muscle tone. TRIAGE NURSING DOCUMENTATION REVIEWED. Course Administered Medications Discontinued Medications Sodium Chloride (Nss 1000ml) 1,000 mls @ 999 mls/hr IV .Q1H1M ONE Stop: 10/14/20 20:01 Last Infusion: 10/14/20 20:05 Dose: 0 mls/hr Documented by: [id number] Admin: 10/14/20 19:15 Dose: 999 mls/hr Documented by: [id number] Medical Decision Making Differential Diagnosis Differential includes acute coronary syndrome, myocardial infarction, CVA, TIA, anemia, infection, pneumonia, UTI, pyelonephritis, poor nutrition, dehydration, electrolyte disturbance,hypoglycemia. Medical Records Attestation: I reviewed the patient's medical records. Home Medications Current Medication List: was personally reviewed by me Laboratory Data Attestation: I reviewed the patient's lab results. Result diagrams: 10/14/20 19:08 10/14/20 19:08 Lab Results 10/14/20 10/14/20 Range/Units 19:08 19:08 WBC 7.32 (4.8-10.8) K/uL RBC 3.39 L (4.7-6.1) M/uL Hgb 10.2 L (14.0-18.0) g/dL Hct 32.1 L (42-52) % MCV 94.7 (80-100) fL MCH 30.1 (25-34) pg MCHC 31.8 L (32-36) g/dL RDW Std Deviation 53.9 H (36.4-46.3) fL RDW Coeff of Ilana 15.6 H (11.5-14.5) % Plt Count 223 (130-400) K/uL MPV 10.0 (7.4-10.4) fL Immature Gran % (Auto) 0.1 % Neut % (Auto) 71.7 % Lymph % (Auto) 18.9 % [place] % (Auto) 6.1 % Eos % (Auto) 2.9 % Baso % (Auto) 0.3 % Neut # (Auto) 5.25 (1.4-6.5) K/uL Lymph # (Auto) 1.38 (1.2-3.4) K/uL [place] # (Auto) 0.45 (0.11-0.59) K/uL Eos # (Auto) 0.21 (0-0.5) K/uL Baso # (Auto) 0.02 (0-0.2) K/uL Immature Gran # (Auto) 0.01 (0.00-0.02) K/uL Sodium 138 (136-145) mmol/L Potassium 5.6 H (3.5-5.1) mmol/L Chloride 108 H (98-107) mmol/L Carbon Dioxide 23 (21-32) mmol/L Anion Gap 7.0 (3-11) BUN 62 H (7-18) mg/dl Creatinine 2.51 H (0.6-1.4) mg/dl Est Cr Clr Drug Dosing 33.0 ml/min Est GFR ( Amer) 28.3 ml/min Est GFR (Non-Af Amer) 24.4 ml/min BUN/Creatinine Ratio 24.7 H (10-20) Glucose 185 H (70-99) mg/dl Calcium 9.0 (8.5-10.1) mg/dl ECG Data Attestation: I personally reviewed and interpreted this ECG as follows: Indication: + other (Hyperkalemia) Rate (beats per minute): 58 Rhythm: + sinus rhythm ECG Intervals/blocks: + First degree AV block and + Normal QT-c ECG ST segments: no ST elevation ECG Findings: no PVCs MDM Narrative Patient presents with hyperkalemia from outpatient labs. Based on his outpatient labs his BUN is increasing as is his creatinine. He is on furosemide as well as spironolactone. His symptoms of kidney injury and worsening hyperkalemia are likely related to prerenal azotemia. He was treated with normal saline IV 1 L. CBC is unremarkable. BUN today is 62 and creatinine is 2.5. Potassium is 5.6. EKG shows a sinus rhythm with first-degree AV block. The patient was treated with a liter of normal saline IV. He will be seen by the hospitalist for further inpatient evaluation and care. Impression & Plan Acute kidney injury, Acute prerenal azotemia, Acute hyperkalemia Discharge Plan Visit Data Chief Complaint: Referred by Doctor Stated Complaint: POTASSIUM LEVELS CHECKED, REF BY ED Provider: Alfonso Lopez Discharge Problem: Acute kidney injury, Acute prerenal azotemia, Acute hyperkalemia Patient Disposition: Being Evaluated by Hospitalist Forms Stand Alone Forms: My [facility] [employer] Prescriptions Prescriptions: No Action cyanocobalamin (vitamin B-12) [Vitamin B-12] 1,000 mcg Tablet 1,000 mcg PO QAM RF: 0 latanoprost [Xalatan] 0.005 % Drops 1 drp OPHTHALMIC (EYE) PM RF: 0 atorvastatin 80 mg Tablet 80 mg PO QPM RF: 0 carvedilol 25 mg Tablet 50 mg PO BID RF: 0 clonidine HCl 0.3 mg Tablet 0.3 mg PO BID RF: 0 pioglitazone 45 mg Tablet 45 mg PO QAM RF: 0 tramadol 50 mg Tablet 50 mg PO BID RF: 0 spironolactone 25 mg Tablet 12.5 mg PO .ON HOLD RF: 0 furosemide 80 mg Tablet 80 mg PO QAM RF: 0 amlodipine 10 mg Tablet 10 mg PO QAM RF: 0 levothyroxine 50 mcg Tablet 50 mcg PO QAM RF: 0 ferrous sulfate 325 mg (65 mg iron) Tablet 325 mg PO QPM RF: 0 lisinopril 10 mg Tablet 10 mg PO .ON HOLD RF: 0 Novolin N NPH U-100 Insulin 100 unit/mL Suspension 25 unit SUBCUT BIDM RF: 0 allopurinol 300 mg Tablet 300 mg PO QAM RF: 0 omeprazole 20 mg Tablet,Delayed Release (Dr/Ec) 20 mg PO QAM RF: 0 cholecalciferol (vitamin D3) 2,000 unit Tablet 2,000 unit PO QAM RF: 0 magnesium oxide 400 mg magnesium Tablet 400 mg PO QAM RF: 0 metformin 500 mg Tablet 500 mg PO BIDM RF: 0 Referrals Referrals: Aki Alvarez MD [Primary Care Provider] -
[2020-10-14 19:17] LABS: Basophils # (auto) 0.02 K/uL (0-0.2); Basophils % (auto) 0.3 %; Eosinophils # (auto) 0.21 K/uL (0-0.5); Eosinophils % (auto) 2.9 %; Hematocrit (blood only) 32.1 % (42-52); Hemoglobin 10.2 g/dL (14.0-18.0); Immature Granulocytes # (auto) 0.01 K/uL (0.00-0.02); Immature Granulocytes % (auto) 0.1 %; Lymphocytes # (auto) 1.38 K/uL (1.2-3.4); Lymphocytes % (auto) 18.9 %; Mean Corpuscular Hemoglobin 30.1 pg (25-34); Mean Corpuscular Hgb Conc 31.8 g/dL (32-36); Mean Corpuscular Volume 94.7 fL (80-100); Monocytes # (auto) 0.45 K/uL (0.11-0.59); Monocytes % (auto) 6.1 %; Neutrophils # (auto) 5.25 K/uL (1.4-6.5); Neutrophils % (auto) 71.7 %; Platelet Count 223 K/uL (130-400); RDW Coefficient of Variation 15.6 % (11.5-14.5); RDW Standard Deviation 53.9 fL (36.4-46.3); Red Blood Count 3.39 M/uL (4.7-6.1); White Blood Count 7.32 K/uL (4.8-10.8)
[2020-10-14 19:44] LABS: BUN Creatinine Ratio 24.7 (10-20); Est GFR (African American) 28.3 ml/min; Est GFR (Non-African American) 24.4 ml/min; Potassium 5.6 mmol/L (3.5-5.1)
[2020-10-15] MEDS ORDERED: ONDANSETRON INJ 2 MG/ML 2 ML VIAL IV PRN (00:57)
[2020-10-15] MEDS ORDERED: ACETAMINOPHEN 325 MG TAB PO PRN (00:57)
[2020-10-15] MEDS ORDERED: NITROGLYCERIN SL 0.4 MG/TAB TAB SL PRN (00:57)
[2020-10-15] MEDS: SODIUM CHLORIDE 0.9% 1000ML 1,000 ML IV SCH ×2 (01:18→11:31)
[2020-10-15] MEDS ORDERED: GLUCAGON FOR INJ 1 MG VIAL IM PRN (01:30)
[2020-10-15] MEDS ORDERED: CARBOHYDRATES FOR HYPOGLYCEMIA PO PRN (01:30)
[2020-10-15] MEDS ORDERED: GLUCOSE 40% GEL 15 GM TUBE PO PRN (01:30)
[2020-10-15] MEDS ORDERED: DEXTROSE 50% 50 ML SYRINGE IV PRN (01:30)
[2020-10-15] MEDS ORDERED: GLUCOSE 10 TABS/TUBE PO PRN (01:30)
[2020-10-15] MEDS ORDERED: SODIUM POLYSTYRENE SULFONATE 15G/60ML SUSP PO STA (02:01)
[2020-10-15] MEDS: LEVOTHYROXINE SODIUM 50 MCG TABLET PO SCH (04:54)
--- NOTE | 2020-10-15 07:00 | History and Physical Report ---
DATE OF ADMISSION: 10/14/2020 CHIEF COMPLAINT: Hyperkalemia and acute kidney injury. HISTORY OF PRESENT ILLNESS: This is a 74-year-old male with past medical history significant for type 2 diabetes, diabetic polyneuropathy, hyperlipidemia, hypothyroidism, chronic gout of multiple sites, obstructive sleep apnea, treated with BiPAP, peripheral artery disease, hypertension, diastolic dysfunction, chronic kidney disease stage IIIB, Fajardo's esophagus, benign prostatic hypertrophy, status post aortic valve replacement, was sent in because outpatient labs showed potassium 6.3 and creatinine of 2.5. Here, potassium is 5.6 and creatinine was 2.5. His labs on 10/08/2020 also showed potassium of 5.6, spironolactone was held, but still his potassium was going high,so he was admitted to the hospital. Currently resting comfortably and hemodynamically stable. Denies any headache, no blurred vision, no earache, no runny nose, no sore throat, no cough, no chest pain, no shortness of breath, no nausea, no dysphagia, no abdominal pain, no diarrhea. Somewhat constipated. Says his stools are always black. He has some swelling in the legs. Currently resting comfortably and hemodynamically stable. ALLERGIES: ASPIRIN, MORPHINE. PAST MEDICAL HISTORY: As mentioned above. PAST SURGICAL HISTORY: Hiatal suture repair, left knee replacement, colonoscopy with biopsy, EGDs, appendectomy, bioprosthetic aortic valve replacement. MEDICATIONS: The patient is on allopurinol 300 mg p.o. a.m., amlodipine 10 mg p.o. a.m., atorvastatin 80 mg p.o. p.m., Coreg 50 mg p.o. b.i.d., vitamin D 2000 units p.o. a.m., clonidine 0.5 mg p.o. b.i.d., vitamin B12 at 1000 mcg p.o. a.m., ferrous sulfate 325 mg p.o. p.m., Lasix 80 mg p.o. a.m., latanoprost 1 drop ophthalmic p.m., levothyroxine 50 mcg p.o. a.m., lisinopril 10 mg p.o. daily, magnesium oxide 400 mg p.o. a.m., metformin 500 mg p.o. b.i.d., Novolin 25 units subcutaneous b.i.d., omeprazole 20 mg p.o. p.m., pioglitazone 45 mg p.o. a.m., spironolactone 12.5 mg p.o. a.m., tramadol 50 mg p.o. b.i.d. FAMILY HISTORY: Significant for mother who of colon cancer, [place]. Maternal grandfather had heart disorder. Paternal grandmother had heart disorder. Uncle had stroke. SOCIAL HISTORY: . Former smoker, quit in 1976. Smoked 1 pack a day for 30 years. Alcohol rarely. No drug use. REVIEW OF SYMPTOMS: As per HPI. Rest of review of systems negative. PHYSICAL EXAMINATION: GENERAL: The patient is obese, not in acute distress. VITAL SIGNS: Temperature 36.4, pulse 58, respiratory rate 20, blood pressure 131/68, oxygen 95% on BiPAP. HEENT: No pallor, no icterus. NECK: No JVD, no neck masses. CARDIOVASCULAR: S1, S2 heard. Regular rate and rhythm. No murmur, no gallop. RESPIRATORY SYSTEM: Normal AP diameter. No accessory muscle use. No wheezing, no crackles. ABDOMEN: Soft, bowel sounds present, nontender. No distention. CENTRAL NERVOUS SYSTEM: Cranial nerves II-XII grossly intact. Nonfocal. EXTREMITIES: Pedal edema present, no erythema seen. LABORATORY DATA: WBC 7.3, hemoglobin 10.2, hematocrit 32.1, platelets 223. Sodium 138, potassium 5.6, chloride 108, bicarbonate 23, BUN 62, creatinine 2.5, serum glucose 185, calcium 9. SARS-CoV-2 PCR negative. EKG: Sinus bradycardia with first-degree AV block with rate of 58, no acute ST-T changes seen. ASSESSMENT AND PLAN: This is a 74-year-old male who presents with hyperkalemia and acute kidney injury. 1. Hyperkalemia. Outpatient potassium was 6.3. Here, potassium is 5.6. Holding his Aldactone and lisinopril. Give a dose of Kayexalate. Follow the repeat labs in a.m. Consult nephrology for further recommendations. 2. Acute kidney injury on chronic kidney disease stage III, baseline creatinine 1.9 to 2, presently with creatinine of 2.5.Low Potassium diet. Holding lisinopril, Lasix and Aldactone. Avoid nephrotoxic agents. Getting fluids. We will follow the repeat labs and await nephrology consult. 3. Diabetes. Hold his home medications of pioglitazone, Novolin and metformin. We will place him on insulin sliding scale. We will follow the blood sugars. If they are consistently high, we will add Lantus. 4. History of bioprosthetic aortic valve replacement. 5. History of obstructive sleep apnea, on BiPAP at bedtime. 6. Hypothyroidism, on Synthroid. 7. History of chronic gout of multiple sites, on allopurinol. 8. Hyperlipidemia, on statin. 9. Hypertension: On amlodipine, clonidine Coreg. Holding lisinopril and Aldactone. If pressure goes high, we will add hydralazine p.r.n. 10. Fajardo's esophagus, on omeprazole. 11. Hyperlipidemia , on statin. 12. Chronic diastolic congestive heart failure. Holding lisinopril, spironolactone and Lasix. Getting fluids and monitor and watch for volume overload. 13. Anemia of chronic disease, on iron supplements. Follow hemeocult 14. Deep venous thrombosis prophylaxis, on sequential compression devices. 15. Disposition: Monitor in the med tele. Level 1 full code. Expect discharge home and follow with family doctor. PADMA
[2020-10-15] MEDS: INSULIN ASPART 100 UNITS/ML 3 ML PEN SC SCH ×4 (08:20→21:18)
[2020-10-15] MEDS: CHOLECALCIFEROL 1,000 UNITS 25 MCG TAB PO SCH (08:24)
[2020-10-15] MEDS: cloNIDine HCL 0.3 MG TAB PO SCH ×2 (08:24→21:16)
[2020-10-15] MEDS: MAGNESIUM OXIDE 400 MG TAB PO SCH (08:24)
[2020-10-15] MEDS: CYANOCOBALAMIN 500 MCG TABLET (VITAMIN B-12) PO SCH (08:24)
[2020-10-15] MEDS: carvediloL 25 MG TAB PO SCH ×2 (08:24→21:17)
[2020-10-15] MEDS: amLODIPine BESYLATE 5 MG TAB PO SCH (08:24)
[2020-10-15] MEDS: allopurinoL 300 MG TAB PO SCH (08:24)
--- NOTE | 2020-10-15 08:48 | Electrocardiogram Report ---
Test Reason : Blood Pressure : / mmHG Vent. Rate : 058 BPM Atrial Rate : 058 BPM P-R Int : 274 ms QRS Dur : 078 ms QT Int : 448 ms P-R-T Axes : 003 035 059 degrees QTc Int : 439 ms Sinus bradycardia with marked first degree A-V block Possible Old Anterior infarct (cited on or before 22-FEB-2016) Abnormal ECG When compared with ECG of 22-FEB-2016 07:17, Nonspecific T wave abnormality no longer evident in Inferior leads T wave inversion no longer evident in Anterolateral leads CO interval has increased Confirmed by Aki Ramirez ([id number]) on 10/15/2020 8:48:11 AM Referred By: David Lyn Confirmed By:Aki Ramirez
[2020-10-15 09:46] LABS: Calcium 9.1 mg/dl (8.5-10.1); Creatinine Clr Calc Pharmacy 44.7 ml/min; Est GFR (African American) 39.9 ml/min; Est GFR (Non-African American) 34.4 ml/min; Potassium 5.5 mmol/L (3.5-5.1)
[2020-10-15] MEDS: PANTOprazole 40 MG TAB PO SCH (10:13)
[2020-10-15] MEDS ORDERED: FUROSEMIDE 40 MG in SYRINGE 0 ML IV ONE (13:30)
--- NOTE | 2020-10-15 14:16 | Consultation Report ---
DATE OF CONSULTATION: 10/15/2020 NEPHROLOGY CONSULTATION NOTE REASON FOR CONSULT: Hyperkalemia and acute kidney injury. HISTORY OF PRESENT ILLNESS: The patient is a 74-year-old male with longstanding type 2 diabetes, diabetic polyneuropathy, hyperlipidemia, chronic kidney disease stage IIIB with a baseline creatinine in the low to mid 1s, Fajardo esophagus, status post aortic valve replacement, who was sent over to the hospital because of abnormal outpatient labs, which showed a potassium of 6.3 and a creatinine of 2.5. He has had somewhat high potassium for a while now and as a result, spironolactone was held, but his potassium was still high, so was instructed to go to the hospital. Since admission, he has received medical management for hyperkalemia as well as IV fluid. With that, creatinine has come down from 2.5 yesterday to 1.9 this morning, potassium is still 5.5. He is getting normal saline. The patient was not on any potassium supplement and was not taking any type of NSAIDs, but he was on lisinopril and spironolactone up until recently. He also takes the Lasix 80 mg daily faithfully. As far as diet, he does like to drink orange juice every morning, which is very high in potassium as well as has been eating a lot of cantaloupes lately. ALLERGIES: ASPIRIN AND MORPHINE. PAST MEDICAL HISTORY: As detailed in the HPI. PAST SURGICAL HISTORY: Hiatal suture repair, left knee replacement, colonoscopy with biopsies, appendicectomy, bioprosthetic aortic valve replacement. MEDICATIONS: At home included allopurinol, amlodipine, atorvastatin, Coreg, vitamin D, clonidine, B12, iron sulfate, Lasix 80 mg daily, eye drops, levothyroxine, lisinopril 10 mg daily, magnesium oxide 400 daily, metformin 500 twice daily, omeprazole, Actos, spironolactone, tramadol. FAMILY HISTORY: Significant for mother who of colon cancer. No renal disease or dialysis. SOCIAL HISTORY: . Former smoker, quit in 1976, smoked 1 pack a day for 30 years. Alcohol rarely. No drug use. REVIEW OF SYSTEMS: As detailed in HPI. He was asymptomatic and the reason why he came to the hospital was abnormal labs. PHYSICAL EXAMINATION: GENERAL: Elderly white male who is obese. He is not in any respiratory distress. He is awake, alert, oriented x3. Normal speech. VITAL SIGNS: Most recent vital signs show a blood pressure of 132/61, pulse rate 59, temperature 36.6, 96% on room air. HEENT: Mucous membranes moist. NECK: Supple. No jugular venous distention. CHEST: Bilaterally clear to auscultation. CARDIOVASCULAR: S1, S2, regular. Soft systolic murmur heard. ABDOMEN: Soft, nontender. EXTREMITIES: Show 1+ edema bilaterally. SKIN: Shows no rash. LABORATORY TESTS: Creatinine was 2.5 yesterday, this morning is down to 1.9. Potassium is still 5.5; outpatient, it was 6.3. Sodium 140. ASSESSMENT AND PLAN: A 74-year-old male with longstanding type 2 diabetes, heart disease, hypertension, on chronic lisinopril, spironolactone and Lasix, was admitted because of abnormal kidney function and high potassium. 1. Acute renal failure. 2. Hyperkalemia. It appears the patient did have slight acute renal failure, which could be related with relative volume depletion. The patient does have significant edema, which could very well be related with obesity, Actos and amlodipine. I am not quite sure if he is volume overloaded or not. We can continue normal saline at 50 mL per hour until tomorrow morning. To lower the potassium further, I would like to give 1 dose of patiromer as well as 1 dose of Lasix 40 mg IV. As an outpatient, he does need to follow a low-potassium diet. On detailed questioning, it appears he was eating a lot of cantaloupes and was drinking orange juice every day, both of which are extremely high in potassium. RECOMMENDATIONS: 1. I would stop spironolactone permanently given high potassium situation. 2. LEO and ARB can be restarted, but only after normal outpatient potassium. I would also recommend to stop lisinopril and instead use losartan. ARBs are slightly less likely to cause high potassium than LEO. 3. Continue the Lasix at the time of discharge. 4. He needs to avoid food and drink which are high in potassium. Prior to hospitalization, he was drinking orange juice every day, which definitely needs to be stopped. He was also eating a lot of cantaloupes and I did advise that in general, tropical and warm weather fruits are high in potassium and should be avoided.
[2020-10-15] MEDS: PATIROMER CALCIUM SORBITEX 8.4 GM PACK PO SCH (14:26)
--- NOTE | 2020-10-15 16:36 | Hospitalist Progress Note ---
Date of Service October 15, 2020 Assessment & Plan (1) Acute kidney injury: Patient is a 74 yr male who presents with hyperkalemia and acute kidney injury. Hyperkalemia Likely secondary to JOHN, medications Spironolactone will be discontinued Avoid high potassium containing foods Hold lisinopril for now Received Kayexalate Continue IV fluids Continue Patiromer Appreciate Nephrology Input Acute kidney injury on CKD III Baseline Cr 1.9 to 2 Cr:2.5> 1.89 Continue gentle IV fluids Avoid nephrotoxic agents as able Appreciate nephrology input Monitor renal function DM II Hold Metformin, pioglitazone Continue Insulin therapy while hospitalized Monitor BGs H/O Bioprosthetic aortic valve replacement. Stable YOON on BiPAP at bedtime. Hypothyroidism Continue levothyroxine Chronic gout of multiple sites on allopurinol. Hyperlipidemia on statin Hypertension On amlodipine, clonidine, Coreg lisinopril will be held due to JOHN, hyperkalemia Fajardo's esophagus on PPI Chronic diastolic congestive heart failure Resume home diuretics as able Spironolactone will DCed upon discharge as well Anemia of chronic disease on iron supplements DVT Px: SCDs CODE STATUS Full code Disposition: Expected discharge home when medically stable Admission and Anticipated Discharge Date Admission Date: October 14, 2020 Subjective Patient is seen and examined at bedside Offer no complaints Denies chest pain, shortness of breath, dizziness, nausea, abd pain Sitting in chair comfortably during my encounter Review of Systems Review of Systems: All systems reviewed & are unremarkable except as noted in HPI & below Physical Exam Physical Exam: Physical Exam: Vitals signs as noted above General Appearance:Obese, no apparent distress Head: normocephalic, Atraumatic Eyes: normal inspection, EOMI Neck: supple, Trachea midline Respiratory/Chest: Normal breath sounds, CTA Cardiovascular: S1, S2, + murmur Abdomen/GI:Soft, Non tender, Bowel sounds present Extremities/Musculoskeletal:normal inspection, 1-2+ B/L LE edema Neurologic/Psych:AAOX3, grossly no focal neurological deficits Skin: normal color, warm, Chest-midline well healed surgical scar Results & Data Results & Data ([facility]) Vital Signs (Past 12 Hours) Vital Signs Temp Pulse Pulse Resp BP Pulse Ox 10/15/20 15:53 36.4 C L 81 22 150/73 H 97 10/15/20 11:24 36.6 C 59 L 20 132/61 96 10/15/20 07:57 36.6 C 61 20 149/71 H 96 10/15/20 07:22 63 10/15/20 04:40 36.4 C L 58 L 20 131/68 95 Laboratory Results Short CBC 10/14/20 Range/Units 19:08 WBC 7.32 (4.8-10.8) K/uL Hgb 10.2 L (14.0-18.0) g/dL Hct 32.1 L (42-52) % Plt Count 223 (130-400) K/uL BMP 10/14/20 10/15/20 19:08 09:04 Sodium 138 140 Potassium 5.6 H 5.5 H Chloride 108 H 112 H Carbon Dioxide 23 23 BUN 62 H 49 H Creatinine 2.51 H 1.89 H D Glucose 185 H 208 H Calcium 9.0 9.1
[2020-10-15] MEDS ORDERED: FERROUS SULFATE 325 MG TAB PO SCH (17:00)
[2020-10-15] MEDS ORDERED: LATANOPROST 0.005% OP SOLN 2.5 ML BTL OP SCH (21:00)
[2020-10-15] MEDS ORDERED: ATORVASTATIN 40 MG TAB PO SCH (21:00)
[2020-10-16] MEDS: SODIUM CHLORIDE 0.9% 1000ML 1,000 ML IV SCH (04:21)
[2020-10-16] MEDS: LEVOTHYROXINE SODIUM 50 MCG TABLET PO SCH (05:53)
[2020-10-16] MEDS: INSULIN ASPART 100 UNITS/ML 3 ML PEN SC SCH ×2 (08:13→12:36)
[2020-10-16] MEDS: carvediloL 25 MG TAB PO SCH (08:14)
[2020-10-16] MEDS: amLODIPine BESYLATE 5 MG TAB PO SCH (08:14)
[2020-10-16] MEDS: CYANOCOBALAMIN 500 MCG TABLET (VITAMIN B-12) PO SCH (08:15)
[2020-10-16] MEDS: PANTOprazole 40 MG TAB PO SCH (08:15)
[2020-10-16] MEDS: allopurinoL 300 MG TAB PO SCH (08:15)
[2020-10-16] MEDS: cloNIDine HCL 0.3 MG TAB PO SCH (08:16)
[2020-10-16] MEDS: CHOLECALCIFEROL 1,000 UNITS 25 MCG TAB PO SCH (08:16)
[2020-10-16 08:31] LABS: Hematocrit (blood only) 31.9 % (42-52); Hemoglobin 10.3 g/dL (14.0-18.0); Mean Corpuscular Hemoglobin 29.9 pg (25-34); Mean Corpuscular Hgb Conc 32.3 g/dL (32-36); Mean Corpuscular Volume 92.5 fL (80-100); Mean Platelet Volume 10.1 fL (7.4-10.4); Platelet Count 237 K/uL (130-400); RDW Coefficient of Variation 15.7 % (11.5-14.5); RDW Standard Deviation 52.6 fL (36.4-46.3); Red Blood Count 3.45 M/uL (4.7-6.1); White Blood Count 7.74 K/uL (4.8-10.8)
[2020-10-16 09:08] LABS: BUN Creatinine Ratio 24.4 (10-20); Calcium 9.2 mg/dl (8.5-10.1); Creatinine Clr Calc Pharmacy 49.9 ml/min; Est GFR (African American) 46.3 ml/min; Magnesium 1.9 mg/dl (1.8-2.4)
[2020-10-16] MEDS: MAGNESIUM OXIDE 400 MG TAB PO SCH (09:20)
[2020-10-16 09:27] LABS: Estimated Average Glucose 169 mg/dl; Hemoglobin A1C 7.5 % (4.5-5.6)
--- NOTE | 2020-10-16 10:07 | Nephrology Progress Note ---
Date of Service October 16, 2020 Assessment & Plan Admission and Anticipated Discharge Date Admission Date: October 14, 2020 Subjective No new issues. feels fine. GENERAL: Elderly white male who is obese. He is not in any respiratory distress. He is awake, alert, oriented x3. Normal speech. HEENT: Mucous membranes moist. NECK: Supple. No jugular venous distention. CHEST: Bilaterally clear to auscultation. CARDIOVASCULAR: S1, S2, regular. Soft systolic murmur heard. ABDOMEN: Soft, nontender. EXTREMITIES: Show 1+ edema bilaterally. SKIN: Shows no rash. LABORATORY TESTS: Creat down. K is pending ASSESSMENT AND PLAN: A 74-year-old male with longstanding type 2 diabetes, heart disease, hypertension, on chronic lisinopril, spironolactone and Lasix, was admitted because of abnormal kidney function and high potassium. 1. Acute renal failure. 2. Hyperkalemia. It appears the patient did have slight acute renal failure, which could be related with relative volume depletion. The patient does have significant edema, which could very well be related with obesity, Actos and amlodipine. I am not quite sure if he is volume overloaded or not. To lower the potassium further, I would like to give 1 dose of patiromer as well as 1 dose of Lasix 40 mg IV. As an outpatient, he does need to follow a low-potassium diet. On detailed questioning, it appears he was eating a lot of cantaloupes and was drinking orange juice every day, both of which are extremely high in potassium. RECOMMENDATIONS: 1. I would stop spironolactone permanently given high potassium situation. 2. LEO and ARB can be restarted, but only after normal outpatient potassium. I would also recommend to stop lisinopril and instead use losartan. ARBs are slightly less likely to cause high potassium than LEO. 3. Continue the Lasix at the time of discharge. 4. He needs to avoid food and drink which are high in potassium. Prior to hospitalization, he was drinking orange juice every day, which definitely needs to be stopped. He was also eating a lot of cantaloupes and I did advise that in general, tropical and warm weather fruits are high in potassium and should be avoided. 5 Ok to discharge if K < 5.4 Results & Data [facility]) Vital Signs (Past 12 Hours) Vital Signs Temp Pulse Pulse Resp BP Pulse Ox 10/16/20 08:03 36.9 C 65 21 161/69 H 96 10/16/20 07:31 83 10/16/20 03:03 36.6 C 56 L 16 147/69 H 96 10/15/20 23:41 36.7 C 61 20 132/62 93 10/15/20 22:42 62
[2020-10-16] MEDS: PATIROMER CALCIUM SORBITEX 8.4 GM PACK PO SCH (10:25)
[2020-10-16 10:55] LABS: Potassium 4.6 mmol/L (3.5-5.1)
--- NOTE | 2020-10-16 13:07 | Hospitalist Progress Note ---
Date of Service October 16, 2020 Assessment & Plan (1) Acute kidney injury: Patient is a 74 yr male who presents with hyperkalemia and acute kidney injury. Hyperkalemia Likely secondary to JOHN, medications Spironolactone, Lisinopril will be discontinued Avoid high potassium containing foods Received Kayexalate, Patiromer Received IV fluids Appreciate Nephrology Input Plan to be started on ARB as outpatient if necessary-to be determined by nephrology Potassium levels normalized Acute kidney injury on CKD III Baseline Cr 1.9 to 2 Cr:2.5> 1.89>1.67 Continue gentle IV fluids Avoid nephrotoxic agents as able Appreciate nephrology input Monitor renal function DM II Hold Metformin, pioglitazone Continue Insulin therapy while hospitalized Monitor BGs H/O Bioprosthetic aortic valve replacement. Stable YOON on BiPAP at bedtime. Hypothyroidism Continue levothyroxine Chronic gout of multiple sites on allopurinol. Hyperlipidemia on statin Hypertension On amlodipine, clonidine, Coreg lisinopril discontinued Fajardo's esophagus on PPI Chronic diastolic congestive heart failure Resume home diuretics as able Spironolactone will DCed upon discharge as well Anemia of chronic disease on iron supplements DVT Px: SCDs CODE STATUS Full code Disposition: Home Admission and Anticipated Discharge Date Admission Date: October 14, 2020 Subjective Patient is seen and examined at bedside States feeling well today Discussed with nephrology today Offers no complaints Denies chest pain, shortness of breath, dizziness, nausea, abd pain Eager to get discharged Review of Systems Review of Systems: All systems reviewed & are unremarkable except as noted in HPI & below Physical Exam Physical Exam: Physical Exam: Vitals signs as noted above General Appearance:Obese, no apparent distress Head: normocephalic, Atraumatic Eyes: normal inspection, EOMI Neck: supple, Trachea midline Respiratory/Chest: Normal breath sounds, CTA Cardiovascular: S1, S2, + murmur Abdomen/GI:Soft, Non tender, Bowel sounds present Extremities/Musculoskeletal:normal inspection, 1-2+ B/L LE edema Neurologic/Psych:AAOX3, grossly no focal neurological deficits Skin: normal color, warm, Chest-midline well healed surgical scar Results & Data Results & Data ([facility]) Vital Signs (Past 12 Hours) Vital Signs Temp Pulse Pulse Resp BP Pulse Ox 10/16/20 12:01 36.7 C 57 L 20 146/54 H 97 10/16/20 08:03 36.9 C 65 21 161/69 H 96 10/16/20 07:31 83 10/16/20 03:03 36.6 C 56 L 16 147/69 H 96 Laboratory Results Short CBC 10/16/20 Range/Units 07:56 WBC 7.74 (4.8-10.8) K/uL Hgb 10.3 L (14.0-18.0) g/dL Hct 31.9 L (42-52) % Plt Count 237 (130-400) K/uL BMP 10/16/20 07:56 Sodium 141 Potassium 4.6 D Chloride 112 H Carbon Dioxide 22 BUN 41 H Creatinine 1.67 H Glucose 187 H Calcium 9.2
--- NOTE | 2020-10-16 13:13 | Discharge Summary ---
Date of Service October 16, 2020 Admission HPI Per Admitting Provider CHIEF COMPLAINT: Hyperkalemia and acute kidney injury. HISTORY OF PRESENT ILLNESS: This is a 74-year-old male with past medical history significant for type 2 diabetes, diabetic polyneuropathy, hyperlipidemia, hypothyroidism, chronic gout of multiple sites, obstructive sleep apnea, treated with BiPAP, peripheral artery disease, hypertension, diastolic dysfunction, chronic kidney disease stage IIIB, Fajardo's esophagus, benign prostatic hypertrophy, status post aortic valve replacement, was sent in because outpatient labs showed potassium 6.3 and creatinine of 2.5. Here, potassium is 5.6 and creatinine was 2.5. His labs on 10/08/2020 also showed potassium of 5.6, spironolactone was held, but still his potassium was going high,so he was admitted to the hospital. Currently resting comfortably and hemodynamically stable. Denies any headache, no blurred vision, no earache, no runny nose, no sore throat, no cough, no chest pain, no shortness of breath, no nausea, no dysphagia, no abdominal pain, no diarrhea. Somewhat constipated. Says his stools are always black. He has some swelling in the legs. Currently resting comfortably and hemodynamically stable. Admission Exam Per Admitting Provider PHYSICAL EXAMINATION: GENERAL: The patient is obese, not in acute distress. VITAL SIGNS: Temperature 36.4, pulse 58, respiratory rate 20, blood pressure 131/68, oxygen 95% on BiPAP. HEENT: No pallor, no icterus. NECK: No JVD, no neck masses. CARDIOVASCULAR: S1, S2 heard. Regular rate and rhythm. No murmur, no gallop. RESPIRATORY SYSTEM: Normal AP diameter. No accessory muscle use. No wheezing, no crackles. ABDOMEN: Soft, bowel sounds present, nontender. No distention. CENTRAL NERVOUS SYSTEM: Cranial nerves II-XII grossly intact. Nonfocal. EXTREMITIES: Pedal edema present, no erythema seen. Principal Diagnosis Hyperkalemia Acute kidney injury Discharge Data Allergies Allergy/AdvReac Type Severity Reaction Status Date / Time aspirin AdvReac Severe gi bleed Verified 10/14/20 20:17 warfarin AdvReac Severe "bleeding Verified 10/14/20 20:17 with anticoagulants" Consultations 10/14/20 21:41 ED Decision to Admit Stat 10/15/20 08:00 Consult Nephrology Routine Hospital Course (1) Acute kidney injury: Patient is a 74 yr male who presents with hyperkalemia and acute kidney injury. Hyperkalemia Likely secondary to JOHN, medications Spironolactone, Lisinopril will be discontinued Avoid high potassium containing foods Received Kayexalate, Patiromer Received IV fluids Appreciate Nephrology Input Plan to be started on ARB as outpatient if necessary-to be determined by nephrology Potassium levels normalized Acute kidney injury on CKD III Baseline Cr 1.9 to 2 Cr:2.5> 1.89>1.67 Continue gentle IV fluids Avoid nephrotoxic agents as able Appreciate nephrology input Monitor renal function DM II Hold Metformin, pioglitazone Continue Insulin therapy while hospitalized Monitor BGs H/O Bioprosthetic aortic valve replacement. Stable YOON on BiPAP at bedtime. Hypothyroidism Continue levothyroxine Chronic gout of multiple sites on allopurinol. Hyperlipidemia on statin Hypertension On amlodipine, clonidine, Coreg lisinopril discontinued Fajardo's esophagus on PPI Chronic diastolic congestive heart failure Resume home diuretics as able Spironolactone will DCed upon discharge as well Anemia of chronic disease on iron supplements DVT Px: SCDs CODE STATUS Full code Disposition: Home Total Time Total Time Spent Total Time Spent (In Minutes): 42 minutes Total Time Includes: Examination of the Patient, Discharge Planning, Medication Reconciliation, Communication With Other Providers and Other Discharge Plan Discharge Items Patient Disposition: Home - Self-Care Reason For Visit: REF BY DR Discharge Diagnosis: Hyperkalemia Acute kidney injury Activity: Per Instructions section Exercise/Sports: Gradually increase as tolerated Non-emergency contact: Primary Care Provider and Radiological Health Specialist Call non-emergency contact if: you have any medication questions, your symptoms worsen, your pain is not controlled, your pain is concerning for you and you have a fever Follow-up/Referrals: Lebron Yost MD [Surgeon] - (Date & Time 10/29/2020 10:40 AM Provider Lebron Yost MD Department Nephrology, [facility] ) Aki Alvarez MD [Primary Care Provider] - (Date & Time 10/22/2020 11:00 AM Provider Aki Alvarez MD Department [facility] ) Diet: Carb Consistent or DM2 and Heart Healthy Addtl Attending Provider Instructions: Follow-up with your primary care physician in 1 week Follow-up with your dragger out Dr. Yost in 2 weeks as scheduled Avoid consuming high potassium foods as advised. Seek immediate medical attention if your symptoms reoccur or worsen Please take all medications as instructed on discharge list below. Please call if you have any questions or problems. You can reach a [facility] hospitalist on duty at [facility] 24 hours a day by calling [phone] Pending Studies at Discharge: No Stand-Alone Forms: My [facility], Smoking Cessation Medications and DC Order Prescriptions: Continued cyanocobalamin (vitamin B-12) [Vitamin B-12] 1,000 mcg Tablet 1,000 mcg PO QAM RF: 0 latanoprost [Xalatan] 0.005 % Drops 1 drp OPHTHALMIC (EYE) PM RF: 0 atorvastatin 80 mg Tablet 80 mg PO QPM RF: 0 carvedilol 25 mg Tablet 50 mg PO BID RF: 0 clonidine HCl 0.3 mg Tablet 0.3 mg PO BID RF: 0 pioglitazone 45 mg Tablet 45 mg PO QAM RF: 0 tramadol 50 mg Tablet 50 mg PO BID RF: 0 furosemide 80 mg Tablet 80 mg PO QAM RF: 0 amlodipine 10 mg Tablet 10 mg PO QAM RF: 0 levothyroxine 50 mcg Tablet 50 mcg PO QAM RF: 0 ferrous sulfate 325 mg (65 mg iron) Tablet 325 mg PO QPM RF: 0 Novolin N NPH U-100 Insulin 100 unit/mL Suspension 25 unit SUBCUT BIDM RF: 0 allopurinol 300 mg Tablet 300 mg PO QAM RF: 0 omeprazole 20 mg Tablet,Delayed Release (Dr/Ec) 20 mg PO QAM RF: 0 cholecalciferol (vitamin D3) 2,000 unit Tablet 2,000 unit PO QAM RF: 0 magnesium oxide 400 mg magnesium Tablet 400 mg PO QAM RF: 0 metformin 500 mg Tablet 500 mg PO BIDM RF: 0 Discontinued spironolactone 25 mg Tablet 12.5 mg PO .ON HOLD RF: 0 lisinopril 10 mg Tablet 10 mg PO .ON HOLD RF: 0 Discharge Orders: Discharge Order (Routine); Ordered 10/16/20 Ordered By: Miguel Salamanca Admission Data Admit Date/Time: 10/14/20 23:38 Attending Provider: Miguel Salamanca Admit Provider: Avtar Tee Primary Care Provider: Aki Alvarez Other Providers: Avtar Tee ; Judi Zavala Other Interventions: Discharge Summary Assessment (RN) Last Done: 10/16/20 13:34
== END 2020-10-16 14:55 | disposition home or self-care (01) | DRG 683 ==
LOC: ED 18:06 → 2N 23:38 → SUATTDRO 23:38 → 2N 10-15 00:11

== ENCOUNTER 2020-12-15 08:04 | Inpatient (IN) ==
--- NOTE | 2020-12-15 09:09 | XRay Report ---
XR chest 1V portable HISTORY: 75 years-old Male SOB acute shortness of breath COMPARISON: 02/24/2016 TECHNIQUE: Portable AP view of the chest FINDINGS: Cardiac silhouette is enlarged. Prior median sternotomy. Calcified plaque of the thoracic aorta. [employer] Specialist abhay interstitial coarsening with chronic blunting of the costophrenic angles. No pneumothorax, large pleural effusion or overt pulmonary edema. Probable trace pleural effusions. Mild pulmonary vascular congestion. Degenerative changes of the shoulders and spine. IMPRESSION: 1. Cardiomegaly with pulmonary vascular congestion. 2. Probable trace pleural effusions. ACT 112: Negative or not required by law. The above report was generated using voice recognition software. It may contain grammatical, syntax o r spelling errors. Electronically signed by: Priyank Guadarrama M.D. 12/15/2020 9:07 AM
[2020-12-15 09:16] LABS: Basophils # (auto) 0.01 K/uL (0-0.2); Basophils % (auto) 0.1 %; Eosinophils # (auto) 0.14 K/uL (0-0.5); Eosinophils % (auto) 1.4 %; Hematocrit (blood only) 29.2 % (42-52); Hemoglobin 8.9 g/dL (14.0-18.0); Immature Granulocytes # (auto) 0.04 K/uL (0.00-0.02); Immature Granulocytes % (auto) 0.4 %; Lymphocytes # (auto) 0.79 K/uL (1.2-3.4); Lymphocytes % (auto) 8.1 %; Mean Corpuscular Hemoglobin 27.7 pg (25-34); Mean Corpuscular Hgb Conc 30.5 g/dL (32-36); Mean Platelet Volume 10.3 fL (7.4-10.4); Monocytes # (auto) 0.57 K/uL (0.11-0.59); Monocytes % (auto) 5.8 %; Neutrophils # (auto) 8.21 K/uL (1.4-6.5); Neutrophils % (auto) 84.2 %; Platelet Count 235 K/uL (130-400); RDW Coefficient of Variation 16.3 % (11.5-14.5); RDW Standard Deviation 54.1 fL (36.4-46.3); Red Blood Count 3.21 M/uL (4.7-6.1); White Blood Count 9.76 K/uL (4.8-10.8)
[2020-12-15 09:37] LABS: Alanine Aminotransferase 21 U/L (12-78); Albumin Level 3.5 gm/dl (3.4-5.0); Aspartate Aminotransferase 17 U/L (15-37); BUN Creatinine Ratio 18.5 (10-20); Blood Urea Nitrogen 36 mg/dl (7-18); Calcium 8.8 mg/dl (8.5-10.1); Carbon Dioxide 29 mmol/L (21-32); Chloride 103 mmol/L (98-107); Creatinine Clr Calc Pharmacy 43.7 ml/min; Est GFR (African American) 38.4 ml/min; Est GFR (Non-African American) 33.1 ml/min; Glucose 126 mg/dl (70-99); Magnesium 2.2 mg/dl (1.8-2.4); Potassium 4.3 mmol/L (3.5-5.1); Sodium 136 mmol/L (136-145)
[2020-12-15 09:42] LABS: Albumin Globulin Ratio 0.9 (0.9-2); Alkaline Phosphatase 139 U/L (45-117); Bilirubin,Total 0.5 mg/dl (0.2-1); NT Pro B Type Natriuretic Pept 5258 pg/ml (0-900); Total Protein 7.5 gm/dl (6.4-8.2); Troponin I < 0.015 ng/ml (0-0.045)
[2020-12-15 10:20] LABS: Partial Thromboplastin Ratio 1.1; Partial Thromboplastin Time 27.8 Seconds (21.0-31.0)
[2020-12-15] MEDS ORDERED: FUROSEMIDE 40 MG/4 ML VIAL IV STA (11:18)
--- NOTE | 2020-12-15 11:24 | History & Physical Report ---
Date of Service December 15, 2020 Assessment & Plan (1) Acute on chronic heart failure with preserved ejection fraction (HFpEF): (2) Cellulitis of left lower extremity: (3) DM2 (diabetes mellitus, type 2): (4) Hypertension: (5) Anemia: (6) YOON treated with BiPAP: (7) H/O aortic valve repair: Plan: This is a 75-year-old male who has significant past medical history of HTN, HLD, history of a bioprosthetic AVR in 2009, YOON on BiPAP, chronic HFpEF, insulin-dependent T2DM, diabetic neuropathy, hypothyroidism, gout, CKD stage IIIb, Fajardo's, BPH who presents to ED with at bedside secondary to shortness breath and weight gain x2 months. Evidence of acute decompensation of HFpEF. 20 pound weight gain, increasing lower extremity edema, elevated proBNP and chest x-ray with pulmonary vascular congestion. Admit to PCU Lasix 40 mg IV twice daily Daily weight, strict I's and O's Echocardiogram -last January 2020 revealed preserved EF, mild LVH Consult cardiology Oxygen as needed Early onset left lower extremity cellulitis, POA No evidence of abscess IV Rocephin 2 g daily Monitor erythema Insulin-dependent T2DM Controlled, last A1c 7.7 Hold Metformin, given patient's baseline creatinine would recommend discontinuing this at discharge Continue Novolin, NovoLog sliding scale Anemia Patient with chronic anemia likely in setting of CKD Hemoglobin 8.9, was 10.3 on 10/16 May be dilutional in setting of heart failure, monitor closely No signs or symptoms of bleeding HTN Current blood pressure 140/65 Continue Coreg, clonidine, amlodipine YOON BiPAP at bedtime Hyperlipidemia Continue statin Fajardo's esophagus Continue PPI Gout Continue allopurinol DVT prophylaxis SCD/teds -patient with history of life-threatening GI bleed on aspirin as well as warfarin, pt wishes to avoid chemical prophylaxis for now Encourage ambulation Consult PT Dispo: PCU Full code PCP: Kim Patient was seen and examined in collaboration with Dr. Smith, please see addendum History of Present Illness Chief Complaint: Shortness of breath and weight gain x2 months. Primary Care Provider: Aki Alvarez MD This is a 75-year-old male who has significant past medical history of HTN, HLD, history of a bioprosthetic AVR in 2009, YOON on BiPAP, chronic HFpEF, insulin- dependent T2DM, diabetic neuropathy, hypothyroidism, gout, CKD stage IIIb, Fajardo's, BPH who presents to ED with at bedside secondary to shortness breath and weight gain x2 months. Patient does have prior history of CHF exacerbation requiring hospitalization per at bedside x2. He states over the past 2 months he has noticed approximately 20 pound weight gain, increased lower extremity edema, progressive shortness of breath with exertion, increased abdominal girth and tightness. He denies any recent fever, chills, sweats, lightheadedness, dizziness, chest pain, palpitations, hemoptysis, nausea, vomiting, abdominal pain, diarrhea, dysuria, increased urgency with urination, increased frequency with urination, hematuria, hematochezia or melena. He does admit to a dry cough which is been present for the past week. He also admits to constipation for which he has been taking MiraLAX. This morning when he weighed himself he was 255. He denies any orthopnea or PND. He sleeps with one pillow and is able to tolerate his BiPAP at night. He also admits to increasing left lower extremity redness. Typically his left leg is brown but over the past 1 to 2 months has become increasingly red. Last week and had blisters on it he feels, "this is better." Patient does take Lasix 80 mg daily and is compliant. His last dose was this morning. He was also seen by PCP on 12/04 who prescribed him an additional 20 mg in the afternoon. He took this for 5 days and stopped it for additional 4 days. When he noticed himself gaining more weight he then started it again. In ED patient made hemodynamically stable and did not require any oxygen. Chest x-ray did reveal pulmonary vascular congestion. His proBNP was elevated at 5258. Further lab abnormalities consistent with chronic renal insufficiency BUN 36 and creatinine 1.94, H&H 8.9 and 29.2, glucose 126. He was ordered 40 mg of IV Lasix in ED. Allergies Allergy/AdvReac Type Severity Reaction Status Date / Time aspirin AdvReac Severe gi bleed Verified 12/15/20 09:58 warfarin AdvReac Severe "bleeding Verified 12/15/20 09:58 with anticoagulants" Home Medications Medication Instructions Recorded Confirmed Type allopurinol 300 mg tablet 300 mg PO QAM 09/06/18 12/15/20 History amlodipine 10 mg tablet 10 mg PO QAM 09/06/18 12/15/20 History atorvastatin 80 mg tablet 80 mg PO QPM 09/06/18 12/15/20 History carvedilol 25 mg tablet 50 mg PO BID 09/06/18 12/15/20 History cholecalciferol (vitamin D3) 50 2,000 unit PO QAM 09/06/18 12/15/20 History mcg (2,000 unit) tablet clonidine HCl 0.3 mg tablet 0.3 mg PO BID 09/06/18 12/15/20 History cyanocobalamin (vitamin B-12) 1,000 mcg PO QAM 09/06/18 12/15/20 History 1,000 mcg tablet (Vitamin B-12) ferrous sulfate 325 mg (65 mg 325 mg PO QPM 09/06/18 12/15/20 History iron) tablet furosemide 80 mg tablet 80 mg PO QAM 09/06/18 12/15/20 History insulin NPH isoph U-100 human 100 25 unit SUBCUT BIDM 09/06/18 12/15/20 History unit/mL subcutaneous suspension (Novolin N NPH U-100 Insulin isophane) latanoprost 0.005 % eye drops 1 drp OPHTHALMIC (EYE) PM 09/06/18 12/15/20 History (Xalatan) levothyroxine 50 mcg tablet 50 mcg PO QAM 09/06/18 12/15/20 History magnesium oxide 400 mg PO QAM 09/06/18 12/15/20 History omeprazole 20 mg tablet,delayed 20 mg PO QAM 09/06/18 12/15/20 History release tramadol 50 mg tablet 50 mg PO BID 09/06/18 12/15/20 History metformin 500 mg tablet 500 mg PO BIDM 03/31/20 12/15/20 History furosemide 20 mg tablet 20 mg PO QPM 12/15/20 12/15/20 History Past Med/Surg History Medical History (Updated 12/15/20 @ 16:12 by Michael Heath MD) Barretts esophagus Cardiac murmur Chronic kidney disease, stage 3 Colon polyps Degenerative disc disease Diabetes mellitus, type 2 GERD (gastroesophageal reflux disease) GI bleed 2009 d/t coumadin use Glaucoma of both eyes Gout Hearing deficit Hyperlipidemia Hypertension Hypothyroidism On home oxygen therapy 2.5L at night Osteoarthritis Sleep apnea bipap with 2.5L oxygen Surgical History (Updated 12/15/20 @ 16:12 by Michael Heath MD) [place] of [place] [facility] [place] of appendectomy History of arthroscopy of left knee x2 History of arthroscopy of right knee History of bilateral cataract extraction History of cardiac cath 2009 @ [facility] no stents History of colonoscopy History of esophagogastroduodenoscopy (EGD) History of tooth extraction all upper teeth, most of lower teeth History of total left knee replacement (TKR) History of total right knee replacement (TKR) Family History Mother Family history of diabetes mellitus Colorectal cancer Heart disease Myocardial infarction Other No family history of adverse response to anesthesia Social History Smoking Status: Former smoker packs per day: 1; Years Smoked: 30; Cigarettes Per Day: 20; Second Hand Exposure: Yes; Hx Alcohol Use: No Hx Substance Use: No Preferred Language: Marshallese Communication Ability: Effective Wedding Makeup Artist Required: No Beliefs That Will Affect Care: Mandaen marital status: Current Living Situation: Spouse How many Children do You have: 3 Feels Safe at Home: Yes Assistive Devices: Denture - Upper, Denture - Lower and Glasses Review of Systems Review of Systems: All systems reviewed & are unremarkable except as noted in HPI & below Physical Exam Physical Exam: Constitutional: WD/WN, male, vitals as above, NAD, sitting up in bed, pleasant, conversing easily Head: Normocephalic, Atraumatic Eyes: PERRL, conjunctivae normal, anicteric sclerae ENMT: external ear and nose normal, oropharynx normal Neck: trachea midline, no thyromegaly normal visual inspection Respiratory: normal respiratory effort, lungs clear to auscultation, no wheeze, rales, rhonchi. Normal insp/exp effort, no accessory muscle use Cardiovascular: RRR, VANESSA noted LUSB 2/6, bilateral lower extremity +2 edema, bilateral venous insufficiency left greater than right, evidence of left lower extremity cellulitis, increased warmth, negative Homans, pedal pulses +2 and equal bilaterally vessels: no JVD or carotid bruit Chest: normal inspection of chest Abdomen: Distended, protuberant abdomen, normal bowel sounds, soft, nontender, no hepatosplenomegaly Musculoskeletal: no cyanosis or clubbing, extremities motor strength 5/5 Skin: no rashes, warm and dry normal turgor Neurologic: PERRL, EOMI, accommodation nl, no face palsy, no dysarthria CN's II-XI intact bilaterally and moves all extremities Psychiatric: A+Ox3, euthymic affect Lymphatic: no cervical or axillary lymphadenopathy : deferred Results & Data Results & Data ([facility]) Vital Signs (Past 12 Hours) Vital Signs Temp Pulse Resp BP Pulse Ox 12/15/20 11:00 57 L 21 131/58 L 93 12/15/20 10:30 16 131/63 12/15/20 10:00 57 L 13 123/56 L 12/15/20 09:30 57 L 16 127/59 L 92 12/15/20 09:27 56 L 20 90 12/15/20 09:00 58 L 18 120/58 L 90 12/15/20 08:48 58 L 18 113/67 90 12/15/20 08:23 93 12/15/20 08:14 36.2 C L 63 18 124/64 93 Diagnostic Findings Chest X-Ray 12/15/20 08:55 XR chest 1V portable HISTORY: 75 years-old Male SOB acute shortness of breath COMPARISON: 02/24/2016 TECHNIQUE: Portable AP view of the chest FINDINGS: Cardiac silhouette is enlarged. Prior median sternotomy. Calcified plaque of the thoracic aorta. Chronic interstitial coarsening with chronic blunting of the costophrenic angles. No pneumothorax, large pleural effusion or overt pulmonary edema. Probable trace pleural effusions. Mild pulmonary vascular congestion. Degenerative changes of the shoulders and spine. IMPRESSION: 1. Cardiomegaly with pulmonary vascular congestion. 2. Probable trace pleural effusions. ACT 112: Negative or not required by law. The above report was generated using voice recognition software. It may contain grammatical, syntax or spelling errors. Electronically signed by: Priyank Guadarrama M.D. 12/15/2020 9:07 AM Medications Administered Medication List Discontinued Medications Furosemide (Furosemide 40 Mg/4 Ml Vial) 40 mg IV NOW STA Stop: 12/15/20 11:19 Last Admin: 12/15/20 12:09 Dose: 40 mg Documented by: [id number] ECG Additional Comments: 62, NSR, first-degree AV block COVID-19 Results Results COVID-19 Adm Lab Results: RBC 3.21 M/uL (4.7-6.1) L 12/15/20 WBC 9.76 K/uL (4.8-10.8) 12/15/20 Hgb 8.9 g/dL (14.0-18.0) L 12/15/20 Hct 29.2 % (42-52) L 12/15/20 Plt Count 235 K/uL (130-400) 12/15/20 Neutrophils (%) (Auto) 84.2 % 12/15/20 Lymphocytes (%) (Auto) 8.1 % 12/15/20 Monocytes # (Auto) 0.57 K/uL (0.11-0.59) 12/15/20 Eosinophils # (Auto) 0.14 K/uL (0-0.5) 12/15/20 Immature Granulocyte % (Auto) 0.4 % 12/15/20 Neutrophils # (Auto) 8.21 K/uL (1.4-6.5) H 12/15/20 Lymphocytes # (Auto) 0.79 K/uL (1.2-3.4) L 12/15/20 Monocytes # (Auto) 0.57 K/uL (0.11-0.59) 12/15/20 Eosinophils # (Auto) 0.14 K/uL (0-0.5) 12/15/20 Basophils # (Auto) 0.01 K/uL (0-0.2) 12/15/20 Immature Granulocyte # (Auto) 0.04 K/uL (0.00-0.02) H 12/15/20 Na 136 mmol/L (136-145) 12/15/20 K 4.3 mmol/L (3.5-5.1) 12/15/20 Cl 103 mmol/L (98-107) 12/15/20 CO2 29 mmol/L (21-32) 12/15/20 Anion Gap 4.0 (3-11) 12/15/20 BUN 36 mg/dl (7-18) H 12/15/20 Creatinine 1.94 mg/dl (0.6-1.4) H 12/15/20 BUN/Creatinine Ratio 18.5 (10-20) 12/15/20 Glucose Level 126 mg/dl (70-99) H 12/15/20 Ca 8.8 mg/dl (8.5-10.1) 12/15/20 Total Bilirubin 0.5 mg/dl (0.2-1) 12/15/20 AST/SGOT 17 U/L (15-37) 12/15/20 ALT/SGPT 21 U/L (12-78) 12/15/20 Alkaline Phosphatase 139 U/L (45-117) H 12/15/20 Total Protein 7.5 gm/dl (6.4-8.2) 12/15/20 Albumin 3.5 gm/dl (3.4-5.0) 12/15/20 Globulin 4.0 gm/dl (2.5-4.0) 12/15/20 Albumin/Globulin Ratio 0.9 (0.9-2) 12/15/20 Troponin I < 0.015 ng/ml (0-0.045) 12/15/20 YM-Gdo-U-Type Natriuretic Pep 5258 pg/ml (0-900) H 12/15/20 PTT 27.8 Seconds (21.0-31.0) 12/15/20 COVID-19 PCR NEGATIVE (Negative) 12/15/20 Chest X-Ray 12/15/20 Code Status & VTE Plan Code Status Full code VTE Prophylaxis Plan VTE Prophylaxis will be ordered: Yes Supervising Physician Co-Signing Physician Notes Attending addendum: The patient was seen and examined in telemetry unit He has been complaining of shortness of breath with chest tightness with exertion for the last 2 months. He was sent in today is because his condition has been getting worse Has increasing swelling of the legs and weight gain as well Denies any chest pain and or palpitation On examination Minimal distress at rest, sitting at the edge of the bed Hemodynamically stable with blood pressure of 157/74 Chestdecreased breath sound at the bases with minimal crackles HeartS1-S2 with 2/6 to 3/6 ESM over aortic area Abdomendistended, firm, nontender and bowel sounds present Extremities1+ edema bilaterally CNSalert, awake and oriented x3 His admission EKG, labs and imaging studies reviewed Has acute on chronic diastolic heart failure with preserved EF Chest pressure could be secondary to angina equivalent-doubt any ACS To have aortic valve replacement and may be contributing the symptoms CKD stage III Has been started on intravenous Lasix 40 mg twice daily for more diuresis Cardiology has been consulted Agree with assessment and plan as outlined above by CESARIO Taylor Dr
--- NOTE | 2020-12-15 14:15 | Emergency Department Note ---
History of Present Illness General Chief Complaint: Shortness of Breath/Dyspnea Stated Complaint: SOB, SWELLING IN LEGS Time Seen by Provider: 12/15/20 08:58 History of Present Illness Provider Complaint: shortness of breath Onset (ago): month(s) (2) Consistency/Duration: + progressively worsening Relieved By: + upright position Exacerbated By: + lying flat and + exertion Context: no recent illness, no medication noncompliance, no recent travel, no smoke/fume exposure, no trauma/injury or no CO exposure Known history of: congestive heart failure Associated symptoms: + orthopnea; no chest pain, no pain with inspiration, no fever, no cough, no wheezing, no sputum production, no lower extremity pain, no polyuria, no paresthesias, no palpitations, no hemoptysis, no diaphoresis, no nausea/vomiting, no syncope, no abdominal pain, no rash, no sense of impending doom or no lightheadedness Home Medications Medication Instructions Recorded Confirmed Type allopurinol 300 mg tablet 300 mg PO QAM 09/06/18 12/15/20 History amlodipine 10 mg tablet 10 mg PO QAM 09/06/18 12/15/20 History atorvastatin 80 mg tablet 80 mg PO QPM 09/06/18 12/15/20 History carvedilol 25 mg tablet 50 mg PO BID 09/06/18 12/15/20 History cholecalciferol (vitamin D3) 50 2,000 unit PO QAM 09/06/18 12/15/20 History mcg (2,000 unit) tablet clonidine HCl 0.3 mg tablet 0.3 mg PO BID 09/06/18 12/15/20 History cyanocobalamin (vitamin B-12) 1,000 mcg PO QAM 09/06/18 12/15/20 History 1,000 mcg tablet (Vitamin B-12) ferrous sulfate 325 mg (65 mg 325 mg PO QPM 09/06/18 12/15/20 History iron) tablet furosemide 80 mg tablet 80 mg PO QAM 09/06/18 12/15/20 History insulin NPH isoph U-100 human 100 25 unit SUBCUT BIDM 09/06/18 12/15/20 History unit/mL subcutaneous suspension (Novolin N NPH U-100 Insulin isophane) latanoprost 0.005 % eye drops 1 drp OPHTHALMIC (EYE) PM 09/06/18 12/15/20 History (Xalatan) levothyroxine 50 mcg tablet 50 mcg PO QAM 09/06/18 12/15/20 History magnesium oxide 400 mg PO QAM 09/06/18 12/15/20 History omeprazole 20 mg tablet,delayed 20 mg PO QAM 09/06/18 12/15/20 History release tramadol 50 mg tablet 50 mg PO BID 09/06/18 12/15/20 History metformin 500 mg tablet 500 mg PO BIDM 03/31/20 12/15/20 History furosemide 20 mg tablet 20 mg PO QPM 12/15/20 12/15/20 History Allergies Allergy/AdvReac Type Severity Reaction Status Date / Time aspirin AdvReac Severe gi bleed Verified 12/15/20 09:58 warfarin AdvReac Severe "bleeding Verified 12/15/20 09:58 with anticoagulants" Past Med/Surg History Medical History Barretts esophagus Cardiac murmur Chronic kidney disease, stage 3 Colon polyps Degenerative disc disease Diabetes mellitus, type 2 GERD (gastroesophageal reflux disease) GI bleed 2009 d/t coumadin use Glaucoma of both eyes Gout Hearing deficit Hyperlipidemia Hypertension Hypothyroidism On home oxygen therapy 2.5L at night Osteoarthritis Sleep apnea bipap with 2.5L oxygen Surgical History History of aortic valve replacement 2009 [place] [facility] [place] of appendectomy History of arthroscopy of left knee x2 History of arthroscopy of right knee History of bilateral cataract extraction History of cardiac cath 2009 @ [facility] no stents History of colonoscopy History of esophagogastroduodenoscopy (EGD) History of tooth extraction all upper teeth, most of lower teeth History of total left knee replacement (TKR) History of total right knee replacement (TKR) Family History Mother Family history of diabetes mellitus Colorectal cancer Heart disease Myocardial infarction Other No family history of adverse response to anesthesia Social History Smoking Status: Former smoker packs per day: 1; Years Smoked: 30; Cigarettes Per Day: 20; Second Hand Exposure: Yes; Hx Alcohol Use: No Hx Substance Use: No Preferred Language: Greenlandic Communication Ability: Effective Cyber Intelligence Analyst Required: No Beliefs That Will Affect Care: Orthodox marital status: Current Living Situation: Spouse How many Children do You have: 3 Feels Safe at Home: Yes Assistive Devices: Denture - Upper, Denture - Lower and Glasses Review of Systems A total of 10 systems reviewed and were otherwise negative Physical Exam Vital Signs: Vital Signs - 24 hr 12/15/20 08:14 12/15/20 08:23 12/15/20 08:48 Temperature 36.2 C L Temperature Source Temporal Artery Sc an Pulse Rate 63 58 L Pulse Rate from Sp O2 Sensor 58 L Respiratory Rate 18 18 Respiratory Effort / Characteristics Blood Pressure 124/64 113/67 Blood Pressure Suzy n 84 82 Pulse Oximetry 93 93 90 Oxygen Delivery Me thod Room Air Room Air Sepsis Recent Feve r Within 48 Hours No Sepsis New/Unexpla ined Change in Men trice Status N/A Sepsis Action Take n by Nursing No Action Required 12/15/20 08:57 12/15/20 09:00 12/15/20 09:27 Temperature Temperature Source Pulse Rate 58 L 56 L Pulse Rate from Sp O2 Sensor 58 L Respiratory Rate 18 20 Respiratory Effort / Characteristics Non-Labored Sponta neous Blood Pressure 120/58 L Blood Pressure Suzy n 78 Pulse Oximetry 90 90 Oxygen Delivery Me thod Room Air Sepsis Recent Feve r Within 48 Hours Sepsis New/Unexpla ined Change in Men trice Status Sepsis Action Take n by Nursing 12/15/20 09:30 12/15/20 10:00 12/15/20 10:30 Temperature Temperature Source Pulse Rate 57 L 57 L Pulse Rate from Sp O2 Sensor 58 L 56 L 60 Respiratory Rate 16 13 16 Respiratory Effort / Characteristics Blood Pressure 127/59 L 123/56 L 131/63 Blood Pressure Suzy n 81 78 85 Pulse Oximetry 92 Oxygen Delivery Me thod Sepsis Recent Feve r Within 48 Hours Sepsis New/Unexpla ined Change in Men trice Status Sepsis Action Take n by Nursing 12/15/20 11:00 12/15/20 11:30 12/15/20 12:01 Temperature Temperature Source Pulse Rate 57 L 58 L Pulse Rate from Sp O2 Sensor 58 L 58 L Respiratory Rate 21 20 Respiratory Effort / Characteristics Blood Pressure 131/58 L 140/65 127/99 Blood Pressure Szuy n 82 90 108 Pulse Oximetry 93 92 Oxygen Delivery Me thod Sepsis Recent Feve r Within 48 Hours Sepsis New/Unexpla ined Change in Men trice Status Sepsis Action Take n by Nursing 12/15/20 12:30 12/15/20 13:00 12/15/20 13:30 Temperature Temperature Source Pulse Rate 63 76 57 L Pulse Rate from Sp O2 Sensor 58 L 57 L Respiratory Rate 20 14 17 Respiratory Effort / Characteristics Blood Pressure 155/64 H 154/61 H 149/67 H Blood Pressure Suzy n 94 92 94 Pulse Oximetry 94 92 92 Oxygen Delivery Me thod Sepsis Recent Feve r Within 48 Hours Sepsis New/Unexpla ined Change in Men trice Status Sepsis Action Take n by Nursing Physical Exam: Physical Exam GENERAL: He is oriented to person, place, and time. He appears well-developed and well-nourished. He does not appear distressed. HENT: Exam performed. - Head: Normocephalic and atraumatic. - Right Ear: External ear normal. No mastoid tenderness. - Left Ear: External ear normal. No mastoid tenderness. - Mouth/Throat: The oropharynx is clear and moist. No trismus in the jaw. No dental abscesses or uvula swelling. No oropharyngeal exudate or tonsillar abscesses. EYES: Conjunctivae and EOM are normal. Pupils are equal, round, and reactive to light. Right eye exhibits no discharge. Left eye exhibits no discharge. No scleral icterus. NECK: Normal range of motion. Neck supple. No JVD present. No spinous process tenderness present. No carotid bruit present. No rigidity. No tracheal deviation and normal range of motion present. No Brudzinski's sign and no Kernig's sign noted. CV: Normal rate, regular rhythm, normal heart sounds and intact distal pulses. Palpable radial pulses bue. PULM/CHEST: Rales bilaterally. - Chest Wall: He exhibits no tenderness. ABD: The abdomen is soft. Bowel sounds are normal. He has no distension. No mass is present. There is no tenderness. There is no rebound, no guarding, no Aragon's sign and no tenderness at McBurney's point. Rovsig negative. MUSC/SKEL: Normal range of motion. 3+ pitting edema of the bilateral lower extremities. LYMPH: No cervical adenopathy. NEURO: He is alert and oriented to person, place, and time. He has normal strength. No cranial nerve deficit or sensory deficit. Coordination and gait normal. GCS eye subscore is 4. GCS verbal subscore is 5. GCS motor subscore is 6. Cerebellar tests wnl. SKIN: Skin is warm and dry. He is not diaphoretic. PSYCH: He has a normal mood and affect. Behavior is normal. Judgment and thought content normal. Course Course 08: The patient was evaluated in room C10. A complete history and physical exam was performed Cardiac monitoring: An order was placed for continuous cardiac monitoring. The monitor shows a rate of 60 with sinus rhythm 1120: Vital signs stable. Patient's physical exam HPI labs and imaging are consistent with a CHF exacerbation. Chest x-ray shows cardiomegaly with cephalization proBNP is elevated. patient will be given Lasix 40 mg IV push [facility]. Discussed with Gabriella Mcclure who stated to admit to Dr. Smith Administered Medications Discontinued Medications Furosemide (Furosemide 40 Mg/4 Ml Vial) 40 mg IV NOW STA Stop: 12/15/20 11:19 Last Admin: 12/15/20 12:09 Dose: 40 mg Documented by: [id number] Medical Decision Making Laboratory Data Result diagrams: 12/15/20 08:45 12/15/20 08:45 Lab Results 12/15/20 12/15/20 12/15/20 Range/Units 08:45 08:45 09:53 WBC 9.76 (4.8-10.8) K/uL RBC 3.21 L (4.7-6.1) M/uL Hgb 8.9 L (14.0-18.0) g/dL Hct 29.2 L (42-52) % MCV 91.0 (80-100) fL MCH 27.7 (25-34) pg MCHC 30.5 L (32-36) g/dL RDW Std Deviation 54.1 H (36.4-46.3) fL RDW Coeff of Ilana 16.3 H (11.5-14.5) % Plt Count 235 (130-400) K/uL MPV 10.3 (7.4-10.4) fL Immature Gran % (Auto) 0.4 % Neut % (Auto) 84.2 % Lymph % (Auto) 8.1 % [place] % (Auto) 5.8 % Eos % (Auto) 1.4 % Baso % (Auto) 0.1 % Neut # (Auto) 8.21 H (1.4-6.5) K/uL Lymph # (Auto) 0.79 L (1.2-3.4) K/uL [place] # (Auto) 0.57 (0.11-0.59) K/uL Eos # (Auto) 0.14 (0-0.5) K/uL Baso # (Auto) 0.01 (0-0.2) K/uL Immature Gran # (Auto) 0.04 H (0.00-0.02) K/uL APTT 27.8 (21.0-31.0) Seconds PTT Ratio 1.1 Sodium 136 (136-145) mmol/L Potassium 4.3 (3.5-5.1) mmol/L Chloride 103 (98-107) mmol/L Carbon Dioxide 29 (21-32) mmol/L Anion Gap 4.0 (3-11) BUN 36 H (7-18) mg/dl Creatinine 1.94 H (0.6-1.4) mg/dl Est Cr Clr Drug Dosing 43.7 ml/min Est GFR ( Amer) 38.4 ml/min Est GFR (Non-Af Amer) 33.1 ml/min BUN/Creatinine Ratio 18.5 (10-20) Glucose 126 H (70-99) mg/dl Calcium 8.8 (8.5-10.1) mg/dl Magnesium 2.2 (1.8-2.4) mg/dl Total Bilirubin 0.5 (0.2-1) mg/dl AST 17 (15-37) U/L ALT 21 (12-78) U/L Alkaline Phosphatase 139 H (45-117) U/L Troponin I < 0.015 (0-0.045) ng/ml NT-Pro-B Natriuret Pep 5258 H (0-900) pg/ml Total Protein 7.5 (6.4-8.2) gm/dl Albumin 3.5 (3.4-5.0) gm/dl Globulin 4.0 (2.5-4.0) gm/dl Albumin/Globulin Ratio 0.9 (0.9-2) COVID-19 Eval Order SARS-CoV-2 (PCR) (Negative) 12/15/20 12/15/20 Range/Units 11:50 11:50 WBC (4.8-10.8) K/uL RBC (4.7-6.1) M/uL Hgb (14.0-18.0) g/dL Hct (42-52) % MCV (80-100) fL MCH (25-34) pg MCHC (32-36) g/dL RDW Std Deviation (36.4-46.3) fL RDW Coeff of Ilana (11.5-14.5) % Plt Count (130-400) K/uL MPV (7.4-10.4) fL Immature Gran % (Auto) % Neut % (Auto) % Lymph % (Auto) % [place] % (Auto) % Eos % (Auto) % Baso % (Auto) % Neut # (Auto) (1.4-6.5) K/uL Lymph # (Auto) (1.2-3.4) K/uL [place] # (Auto) (0.11-0.59) K/uL Eos # (Auto) (0-0.5) K/uL Baso # (Auto) (0-0.2) K/uL Immature Gran # (Auto) (0.00-0.02) K/uL APTT (21.0-31.0) Seconds PTT Ratio Sodium (136-145) mmol/L Potassium (3.5-5.1) mmol/L Chloride (98-107) mmol/L Carbon Dioxide (21-32) mmol/L Anion Gap (3-11) BUN (7-18) mg/dl Creatinine (0.6-1.4) mg/dl Est Cr Clr Drug Dosing ml/min Est GFR ( Amer) ml/min Est GFR (Non-Af Amer) ml/min BUN/Creatinine Ratio (10-20) Glucose (70-99) mg/dl Calcium (8.5-10.1) mg/dl Magnesium (1.8-2.4) mg/dl Total Bilirubin (0.2-1) mg/dl AST (15-37) U/L ALT (12-78) U/L Alkaline Phosphatase (45-117) U/L Troponin I (0-0.045) ng/ml NT-Pro-B Natriuret Pep (0-900) pg/ml Total Protein (6.4-8.2) gm/dl Albumin (3.4-5.0) gm/dl Globulin (2.5-4.0) gm/dl Albumin/Globulin Ratio (0.9-2) COVID-19 Eval Order Covid19 at [facility] SARS-CoV-2 (PCR) NEGATIVE (Negative) Imaging Data Radiologist's Impression: Chest X-Ray 12/15/20 08:55 XR chest 1V portable HISTORY: 75 years-old Male SOB acute shortness of breath COMPARISON: 02/24/2016 TECHNIQUE: Portable AP view of the chest FINDINGS: Cardiac silhouette is enlarged. Prior median sternotomy. Calcified plaque of the thoracic aorta. Chronic interstitial coarsening with chronic blunting of the costophrenic angles. No pneumothorax, large pleural effusion or overt pulmonary edema. Probable trace pleural effusions. Mild pulmonary vascular congestion. Degenerative changes of the shoulders and spine. IMPRESSION: 1. Cardiomegaly with pulmonary vascular congestion. 2. Probable trace pleural effusions. ACT 112: Negative or not required by law. The above report was generated using voice recognition software. It may contain grammatical, syntax or spelling errors. Electronically signed by: Priyank Guadarrama M.D. 12/15/2020 9:07 AM ECG Data Interpretation: Sinus rhythm with a rate of 62. First-degree AV block present. NM 250 QRS [address] elevation or ST depression. MDM Narrative Vital signs stable. Patient's physical exam HPI labs and imaging are consistent with a CHF exacerbation. Chest x-ray shows cardiomegaly with cephalization proBNP is elevated. patient will be given Lasix 40 mg IV push [facility]. Discussed with Gabriella Mcclure who stated to admit to Dr. Smith Impression & Plan Congestive heart failure Discharge Plan Visit Data Chief Complaint: Shortness of Breath/Dyspnea Stated Complaint: SOB, SWELLING IN LEGS ED Provider: Bradly Blue Discharge Problem: Congestive heart failure Patient Disposition: Admitted As Inpatient Forms Stand Alone Forms: [facility] Prescriptions Prescriptions: No Action cyanocobalamin (vitamin B-12) [Vitamin B-12] 1,000 mcg Tablet 1,000 mcg PO QAM RF: 0 latanoprost [Xalatan] 0.005 % Drops 1 drp OPHTHALMIC (EYE) PM RF: 0 atorvastatin 80 mg Tablet 80 mg PO QPM RF: 0 carvedilol 25 mg Tablet 50 mg PO BID RF: 0 clonidine HCl 0.3 mg Tablet 0.3 mg PO BID RF: 0 tramadol 50 mg Tablet 50 mg PO BID RF: 0 furosemide 80 mg Tablet 80 mg PO QAM RF: 0 amlodipine 10 mg Tablet 10 mg PO QAM RF: 0 levothyroxine 50 mcg Tablet 50 mcg PO QAM RF: 0 ferrous sulfate 325 mg (65 mg iron) Tablet 325 mg PO QPM RF: 0 Novolin N NPH U-100 Insulin 100 unit/mL Suspension 25 unit SUBCUT BIDM RF: 0 allopurinol 300 mg Tablet 300 mg PO QAM RF: 0 omeprazole 20 mg Tablet,Delayed Release (Dr/Ec) 20 mg PO QAM RF: 0 cholecalciferol (vitamin D3) 2,000 unit Tablet 2,000 unit PO QAM RF: 0 magnesium oxide 400 mg magnesium Tablet 400 mg PO QAM RF: 0 metformin 500 mg Tablet 500 mg PO BIDM RF: 0 furosemide 20 mg Tablet 20 mg PO QPM RF: 0 Referrals Referrals: Aki Alvarez MD [Primary Care Provider] - Discharge Problem: Congestive heart failure Qualifiers: Heart failure type: unspecified Heart failure chronicity: acute on chronic Qualified Code(s): I50.9 - Heart failure, unspecified
--- NOTE | 2020-12-15 16:05 | Cardiology Consultation ---
Date of Consultation December 15, 2020 Assessment & Plan (1) S/P AVR (aortic valve replacement): (2) Hypertensive heart disease with acute on chronic diastolic congestive heart failure: (3) Anemia: (4) Chronic kidney disease, stage 3: Patient is a complex 75-year-old male presents with diastolic heart failure increasing abdominal girth and lower extremity edema gradually worsening over 2 months. Complicated by chronic CKD and renal insufficiency variation. Hypertension chronically labile. Patient estimates 20 pound weight gain with findings reflective of right greater than left heart failure with leg lower extremity edema and abdominal distention Echocardiogram today demonstrates preserved LV systolic function with diastolic dysfunction mildly elevated pulmonary pressures and normally functioning aortic valve bioprosthesis. Plan as ordered IV diuretics in hospital with careful monitoring of chronic renal insufficiency. We will follow in hospital History of Present Illness Reason for Consultation: Diastolic heart failure Attending Physician: Dr. Smith History of Present Illness Patient is a 75-year-old male who was medical and surgical problem list and includes (per outpatient visit 08/04/2020 David Lyn and personal review ) 1. Aortic valve replacement with 21 mm Tamiko-Ivy bioprosthesis 2009 2. No significant obstructive coronary artery disease by cardiac catheterization in 2009 3. Abnormal myocardial perfusion imaging, mostly fixed inferior wall perfusion defect, consistent with diaphragmatic attenuation versus RCA territory infarction with mild superimposed ischemia.05/30/12 4. Echo in the Fall of 2015 notable for intrinsic obstruction from a narrow outflow tract complicated by hyperdynamic left ventricular systolic function and diastolic dysfunction. Reduction in afterload reducing agents at that time resulted in significant improvement in presenting symptoms. 5. Labile hypertension, hypertensive heart disease 6. Resting bradycardia 7. Stage IIIb chronic kidney disease 8. Type II diabetes mellitus 9. Symptomatic anemia. History of iron deficient and B12 deficient anemia, past life-threatening GI bleeding while on ASA and Coumadin, recurrent anemia on low dose ASA prompting discontinuation 10. Low HDL dyslipidemia 11. Obstructive sleep apnea on BiPAP and oxygen supplementation Patient presents now noting approximately 2-month history of increasing dyspnea weight gain and abdominal girth increase. Approximately 1 week ago had marked erythema both lower extremities left greater than right and increased diuretic dosing. This did aid in lower extremity edema slightly but did not lower weight significantly. He denies any chest pains. Tachypalpitations. Notes no syncope or near syncope. No fevers chills or unexplained infections. He has received Covid vaccination. He has chronic low grade GI bleeding but no worsening anemia per report. Blood pressure per patient's been generally controlled on current therapies but occasionally trend higher. Notes lisinopril and spironolactone were discontinued due to hyperkalemia. Losartan placed in its place. Actos discontinued due to worsening edema Allergies Allergy/AdvReac Type Severity Reaction Status Date / Time aspirin AdvReac Severe gi bleed Verified 12/15/20 09:58 warfarin AdvReac Severe "bleeding Verified 12/15/20 09:58 with anticoagulants" Home Medications Medication Instructions Recorded Confirmed Type allopurinol 300 mg tablet 300 mg PO QAM 09/06/18 12/15/20 History amlodipine 10 mg tablet 10 mg PO QAM 09/06/18 12/15/20 History atorvastatin 80 mg tablet 80 mg PO QPM 09/06/18 12/15/20 History carvedilol 25 mg tablet 50 mg PO BID 09/06/18 12/15/20 History cholecalciferol (vitamin D3) 50 2,000 unit PO QAM 09/06/18 12/15/20 History mcg (2,000 unit) tablet clonidine HCl 0.3 mg tablet 0.3 mg PO BID 09/06/18 12/15/20 History cyanocobalamin (vitamin B-12) 1,000 mcg PO QAM 09/06/18 12/15/20 History 1,000 mcg tablet (Vitamin B-12) ferrous sulfate 325 mg (65 mg 325 mg PO QPM 09/06/18 12/15/20 History iron) tablet furosemide 80 mg tablet 80 mg PO QAM 09/06/18 12/15/20 History insulin NPH isoph U-100 human 100 25 unit SUBCUT BIDM 09/06/18 12/15/20 History unit/mL subcutaneous suspension (Novolin N NPH U-100 Insulin isophane) latanoprost 0.005 % eye drops 1 drp OPHTHALMIC (EYE) PM 09/06/18 12/15/20 History (Xalatan) levothyroxine 50 mcg tablet 50 mcg PO QAM 09/06/18 12/15/20 History magnesium oxide 400 mg PO QAM 09/06/18 12/15/20 History omeprazole 20 mg tablet,delayed 20 mg PO QAM 09/06/18 12/15/20 History release tramadol 50 mg tablet 50 mg PO BID 09/06/18 12/15/20 History metformin 500 mg tablet 500 mg PO BIDM 03/31/20 12/15/20 History furosemide 20 mg tablet 20 mg PO QPM 12/15/20 12/15/20 History Patient History Medical History (Updated 12/15/20 @ 16:12 by Michael Heath MD) Barretts esophagus Cardiac murmur Chronic kidney disease, stage 3 Colon polyps Degenerative disc disease Diabetes mellitus, type 2 GERD (gastroesophageal reflux disease) GI bleed 2009 d/t coumadin use Glaucoma of both eyes Gout Hearing deficit Hyperlipidemia Hypertension Hypothyroidism On home oxygen therapy 2.5L at night Osteoarthritis Sleep apnea bipap with 2.5L oxygen Surgical History (Updated 12/15/20 @ 16:12 by Michael Heath MD) History of aortic valve replacement 2009 @ [facility] [place] History of appendectomy History of arthroscopy of left knee x2 History of arthroscopy of right knee History of bilateral cataract extraction History of cardiac cath 2009 @ [facility] no stents History of colonoscopy History of esophagogastroduodenoscopy (EGD) History of tooth extraction all upper teeth, most of lower teeth History of total left knee replacement (TKR) History of total right knee replacement (TKR) Family History Mother Family history of diabetes mellitus Colorectal cancer Heart disease Myocardial infarction Other No family history of adverse response to anesthesia Social History Smoking Status: Former smoker packs per day: 1; Years Smoked: 30; Cigarettes Per Day: 20; Second Hand Exposure: Yes; Hx Alcohol Use: No Hx Substance Use: No Preferred Language: Macedonian Communication Ability: Effective 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 Beliefs That Will Affect Care: Yarsani marital status: Current Living Situation: Spouse How many Children do You have: 3 Feels Safe at Home: Yes Assistive Devices: Denture - Upper, Denture - Lower and Glasses Review of Systems Review of Systems: All systems reviewed & are unremarkable except as noted in HPI & below Physical Exam Constitutional: WD/WN, vitals as above + obese; no acute distress Eyes: PERRL, conjunctivae normal, anicteric sclerae ENMT: external ear and nose normal, oropharynx normal Neck: trachea midline, no thyromegaly + thick neck Respiratory: normal respiratory effort, lungs clear to auscultation Cardiovascular: Rate/Rhythm: regular rate and regular rhythm Heart Sounds: normal S1, normal S2 and + murmur (Grade 2/6 systolic); no gallop Palpation: normal PMI Vessels: normal carotid upstroke and radial pulses present; no carotid bruit Extremities: + edema (3+ lower extremity edema with woody erythema left greater than right) Gastrointestinal (Abdomen): Inspection/Auscultation: + abdomen distended Musculoskeletal: no cyanosis or clubbing, extremities motor strength 5/5 Skin: + erythema (Bilateral lower extremities) Neurologic: PERRL, EOMI, accommodation nl, no face palsy, no dysarthria Psychiatric: A+Ox3, euthymic affect Results & Data ([facility]) Vital Signs (Past 12 Hours) Vital Signs Temp Pulse Resp BP Pulse Ox 12/15/20 15:00 61 18 154/72 H 93 12/15/20 14:30 60 19 155/67 H 92 12/15/20 14:01 60 21 141/71 H 91 12/15/20 13:30 57 L 17 149/67 H 92 12/15/20 13:00 76 14 154/61 H 92 12/15/20 12:30 63 20 155/64 H 94 12/15/20 12:01 127/99 12/15/20 11:30 58 L 20 140/65 92 12/15/20 11:00 57 L 21 131/58 L 93 12/15/20 10:30 16 131/63 12/15/20 10:00 57 L 13 123/56 L 12/15/20 09:30 57 L 16 127/59 L 92 12/15/20 09:27 56 L 20 90 12/15/20 09:00 58 L 18 120/58 L 90 12/15/20 08:48 58 L 18 113/67 90 12/15/20 08:23 93 12/15/20 08:14 36.2 C L 63 18 124/64 93 Laboratory Results Laboratory Results - last 24 hr 12/15/20 12/15/20 12/15/20 08:45 08:45 09:53 WBC 9.76 RBC 3.21 L Hgb 8.9 L Hct 29.2 L MCV 91.0 MCH 27.7 MCHC 30.5 L RDW Std Deviation 54.1 H RDW Coeff of Ilana 16.3 H Plt Count 235 MPV 10.3 Immature Gran % (Auto) 0.4 Neut % (Auto) 84.2 Lymph % (Auto) 8.1 [place] % (Auto) 5.8 Eos % (Auto) 1.4 Baso % (Auto) 0.1 Neut # (Auto) 8.21 H Lymph # (Auto) 0.79 L [place] # (Auto) 0.57 Eos # (Auto) 0.14 Baso # (Auto) 0.01 Immature Gran # (Auto) 0.04 H APTT 27.8 PTT Ratio 1.1 Sodium 136 Potassium 4.3 Chloride 103 Carbon Dioxide 29 Anion Gap 4.0 BUN 36 H Creatinine 1.94 H Est Cr Clr Drug Dosing 43.7 Est GFR ( Amer) 38.4 Est GFR (Non-Af Amer) 33.1 BUN/Creatinine Ratio 18.5 Glucose 126 H Calcium 8.8 Magnesium 2.2 Total Bilirubin 0.5 AST 17 ALT 21 Alkaline Phosphatase 139 H Troponin I < 0.015 NT-Pro-B Natriuret Pep 5258 H Total Protein 7.5 Albumin 3.5 Globulin 4.0 Albumin/Globulin Ratio 0.9 COVID-19 Eval Order SARS-CoV-2 (PCR) 12/15/20 12/15/20 11:50 11:50 WBC RBC Hgb Hct MCV MCH MCHC RDW Std Deviation RDW Coeff of Ilana Plt Count MPV Immature Gran % (Auto) Neut % (Auto) Lymph % (Auto) [place] % (Auto) Eos % (Auto) Baso % (Auto) Neut # (Auto) Lymph # (Auto) [place] # (Auto) Eos # (Auto) Baso # (Auto) Immature Gran # (Auto) APTT PTT Ratio Sodium Potassium Chloride Carbon Dioxide Anion Gap BUN Creatinine Est Cr Clr Drug Dosing Est GFR ( Amer) Est GFR (Non-Af Amer) BUN/Creatinine Ratio Glucose Calcium Magnesium Total Bilirubin AST ALT Alkaline Phosphatase Troponin I NT-Pro-B Natriuret Pep Total Protein Albumin Globulin Albumin/Globulin Ratio COVID-19 Eval Order Covid19 at [facility] SARS-CoV-2 (PCR) NEGATIVE ECG Additional Comments: Sinus rhythm with 1st degree A-V block Possible Anterior infarct (cited on or before 22-FEB-2016) Abnormal ECG When compared with ECG of 14-OCT-2020 19:07, No significant change was found
[2020-12-15] MEDS ORDERED: DEXTROSE 50% 50 ML SYRINGE IV PRN (17:06)
[2020-12-15] MEDS ORDERED: INSULIN ASPART 100 UNITS/ML 3 ML PEN SC SCH (17:06)
[2020-12-15] MEDS ORDERED: MAGNESIUM HYDROXIDE SUSP 30 ML UDC PO PRN (17:06)
[2020-12-15] MEDS ORDERED: GLUCAGON FOR INJ 1 MG VIAL SQ PRN (17:06)
[2020-12-15] MEDS ORDERED: ALUMINUM/MAGNESIUM SUSP 30 ML UDC PO PRN (17:06)
[2020-12-15] MEDS ORDERED: GLUCOSE 40% GEL 15 GM TUBE PO PRN (17:06)
[2020-12-15] MEDS ORDERED: POLYETHYLENE (MIRALAX) 17 GM PACK PO PRN (17:06)
[2020-12-15] MEDS ORDERED: ACETAMINOPHEN 325 MG TAB PO PRN (17:06)
[2020-12-15] MEDS ORDERED: ONDANSETRON INJ 2 MG/ML 2 ML VIAL IV PRN (17:06)
[2020-12-15] MEDS ORDERED: CARBOHYDRATES FOR HYPOGLYCEMIA PO PRN (17:06)
[2020-12-15] MEDS ORDERED: GLUCOSE 10 TABS/TUBE PO PRN (17:06)
[2020-12-15] MEDS: FUROSEMIDE 40 MG/4 ML VIAL IV SCH (18:45)
[2020-12-15] MEDS: cefTRIAXone SODIUM 2,000 MG in DEXTROSE 5% 50 ML IV SCH (19:40)
[2020-12-15] MEDS: traMADol HCL 50 MG TABLET PO SCH (20:29)
[2020-12-15] MEDS: carvediloL 25 MG TAB PO SCH (20:42)
[2020-12-15] MEDS: ATORVASTATIN 40 MG TAB PO SCH (20:42)
[2020-12-15] MEDS: FERROUS SULFATE 325 MG TAB PO SCH (20:43)
[2020-12-15] MEDS: cloNIDine HCL 0.3 MG TAB PO SCH (20:43)
[2020-12-15] MEDS: LATANOPROST 0.005% OP SOLN 2.5 ML BTL OP SCH (20:44)
[2020-12-15] MEDS: INSULIN HUMAN NPH SC SCH (20:55)
[2020-12-15] MEDS: INSULIN ASPART 100 UNITS/ML 3 ML PEN SC SCH (20:55)
[2020-12-16] MEDS: LEVOTHYROXINE SODIUM 50 MCG TABLET PO SCH (05:33)
[2020-12-16 06:10] LABS: Hematocrit (blood only) 27.9 % (42-52); Hemoglobin 8.6 g/dL (14.0-18.0); Mean Corpuscular Hemoglobin 28.3 pg (25-34); Mean Corpuscular Hgb Conc 30.8 g/dL (32-36); Mean Corpuscular Volume 91.8 fL (80-100); Mean Platelet Volume 10.2 fL (7.4-10.4); Platelet Count 226 K/uL (130-400); RDW Coefficient of Variation 16.4 % (11.5-14.5); Red Blood Count 3.04 M/uL (4.7-6.1); White Blood Count 8.67 K/uL (4.8-10.8)
[2020-12-16 06:37] LABS: Calcium 8.9 mg/dl (8.5-10.1); Creatinine Clr Calc Pharmacy 42.8 ml/min; Est GFR (African American) 37.7 ml/min; Est GFR (Non-African American) 32.5 ml/min; Magnesium 2.2 mg/dl (1.8-2.4); Potassium 4.4 mmol/L (3.5-5.1)
[2020-12-16] MEDS: INSULIN ASPART 100 UNITS/ML 3 ML PEN SC SCH ×4 (08:15→20:15)
[2020-12-16] MEDS: INSULIN HUMAN NPH SC SCH ×2 (08:15→16:52)
[2020-12-16] MEDS: amLODIPine BESYLATE 5 MG TAB PO SCH (08:17)
[2020-12-16] MEDS: carvediloL 25 MG TAB PO SCH ×2 (08:17→20:21)
[2020-12-16] MEDS: CYANOCOBALAMIN 500 MCG TABLET (VITAMIN B-12) PO SCH (08:17)
[2020-12-16] MEDS: CHOLECALCIFEROL 1,000 UNITS 25 MCG TAB PO SCH (08:17)
[2020-12-16] MEDS: cloNIDine HCL 0.3 MG TAB PO SCH ×2 (08:17→20:18)
[2020-12-16] MEDS: PANTOprazole 40 MG TAB PO SCH (08:17)
[2020-12-16] MEDS: MAGNESIUM OXIDE 400 MG TAB PO SCH (08:17)
[2020-12-16] MEDS: allopurinoL 300 MG TAB PO SCH (08:17)
[2020-12-16] MEDS: traMADol HCL 50 MG TABLET PO SCH ×2 (08:23→20:25)
[2020-12-16] MEDS: DOCUSATE SODIUM/SENNA 50/8.6MG TAB PO SCH (08:23)
[2020-12-16] MEDS: FUROSEMIDE 40 MG/4 ML VIAL IV SCH (09:00)
[2020-12-16] MEDS ORDERED: FUROSEMIDE 40 MG/4 ML VIAL IV SCH (10:00)
--- NOTE | 2020-12-16 12:14 | Consultation Report ---
NEPHROLOGY CONSULTATION DATE OF SERVICE: 12/16/2020 REASON FOR CONSULTATION: Chronic kidney disease with congestive heart failure at this time. HISTORY OF PRESENT ILLNESS: The patient is a 75-year-old male with significant medical history of longstanding type 2 diabetes, on insulin, with CKD stage III to stage IV with a fluctuating baseline creatinine, but in general in the high 1s and low 2s as well as significant cardiopulmonary disease including bioprosthetic AVR in 2010, obstructive sleep apnea, on BiPAP; chronic heart failure with preserved ejection fraction, who presented to the hospital yesterday because of increasing shortness of breath, increasing lower extremity edema and weight gain despite outpatient diuretics. He was on his stable regimen of Lasix 80 daily, and the dose was increased to extra 20 mg for a few days by his PCP, but this did not really make any difference and he presented to the hospital yesterday with the above symptoms. Since admission, he has received Lasix IV 40 b.i.d., but he does not feel he is having any increased urine compared to what he was having at home. He has had 20-pound weight gain over the last few weeks. He denies having any fever, productive cough, chills, chest pain or other symptoms. Denies nausea, vomiting or any other symptoms. Creatinine at the time of admission is at baseline at 1.94 and it is still about the same level this morning. Chest x-ray did show pulmonary congestion. PAST MEDICAL AND PAST SURGICAL HISTORY: As detailed in the HPI. On top of that, he also has gout, Fajardo's esophagus, hyperlipidemia, hypertension, appendicectomy, cataract extraction, heart catheterization, no stents, total knee replacement, chronic oxygen therapy at 2.5 liters at night, history of GI bleeds in 2009 secondary to Coumadin. FAMILY HISTORY: Negative for renal disease or dialysis. SOCIAL HISTORY: Former smoker. No alcohol. He is and lives with his , retired about 2 years ago. REVIEW OF SYSTEMS: As detailed in HPI for positive review of systems, pertinent negative also listed in HPI. Total of 12 systems reviewed and is otherwise negative. ALLERGIES: ALLERGY LIST WAS REVIEWED AND INCLUDES ASPIRIN AND COUMADIN. HOME MEDICATIONS: List was reviewed in detail. Of special interest to nephrology, he is on Lasix 80 mg once daily and was getting extra 20 mg for the last few days. PHYSICAL EXAMINATION: GENERAL: Elderly white male who does not appear to be in overt respiratory distress at this time. He is awake, alert, oriented x3. VITAL SIGNS: Blood pressure 149/73, temperature 36.8, oxygen saturation 95% on room air. HEENT: Mucous membrane is moist. NECK: Supple. No jugular venous distention. CHEST: Bilaterally decreased breath sounds, occasional crackles. CARDIOVASCULAR: S1 and S2 regular. Systolic murmur heard. ABDOMEN: Soft, nontender, obese with abdominal wall edema. EXTREMITIES: Show 2+ edema extending all the way to upper thigh as well as sacral area. LABORATORY TEST: This morning labs show creatinine of 1.97, BUN is 41. BNP was 5258. Hemoglobin shows 8.6. Chest x-ray shows pulmonary congestion with cardiomegaly. ASSESSMENT: A 75-year-old male who has extensive comorbidities including longstanding type 2 diabetes with chronic kidney disease stage III with a fluctuating baseline creatinine usually in the high 1s to low 2s as well as congestive heart failure, sleep apnea with possible right heart failure, now admitted with increasing weight, shortness of breath and lower extremity edema. Chronic kidney disease: I do not think his current creatinine is a whole lot different than his usual stable outpatient baseline, but there is no doubt he definitely has significant fluid retention as a combination of chronic kidney disease and right heart failure. He does need to be diuresed. He does not report having any extra urine with the current dose of Lasix than he was getting at home. Given this, I do want to double the dose of Lasix to 80 mg IV twice daily. Continue to monitor input and output charting carefully. He is very particular about his weight and claims he has had 20-pound weight gain within the last week or so. We have to have some weight loss before we discharge him. I am not sure even this Lasix 80 IV b.i.d. will be enough, we might have to add more. Job ID: [id number] [facility]
[2020-12-16] MEDS ORDERED: FUROSEMIDE 40 MG in SYRINGE 0 ML IV ONE (12:30)
--- NOTE | 2020-12-16 13:41 | Cardiology Progress Note ---
Date of Service December 16, 2020 Assessment & Plan (1) S/P AVR (aortic valve replacement): (2) Hypertensive heart disease with acute on chronic diastolic congestive heart failure: (3) Anemia: (4) Chronic kidney disease, stage 3: Plan: Patient is a complex 75-year-old male presents with diastolic heart failure increasing abdominal girth and lower extremity edema gradually worsening over 2 months. Complicated by chronic CKD and renal insufficiency variation. Hyp ertension chronically labile. Patient estimates 20 pound weight gain with findings reflective of right greater than left heart failure with leg lower extremity edema and abdominal distention Echocardiogram 12/15/2020 demonstrates preserved LV systolic function with diastolic dysfunction mildly elevated pulmonary pressures and normally functioning aortic valve bioprosthesis. Plan as ordered IV diuretics per nephrology We will follow in hospital Admission and Anticipated Discharge Date Admission Date: December 15, 2020 Subjective Patient was seen and examined, chart, medications, telemetry reviewed. Patient states he feels better but no overt volume loss. Slight reduction in lower extremity edema per patient No arrhythmias on telemetry Appreciate nephrology input Review of Systems Review of Systems: All systems reviewed & are unremarkable except as noted in Subjective Physical Exam Constitutional: WD/WN, vitals as above + obese; no acute distress Eyes: PERRL, conjunctivae normal, anicteric sclerae ENMT: external ear and nose normal, oropharynx normal Neck: trachea midline, no thyromegaly + thick neck Respiratory: normal respiratory effort, lungs clear to auscultation Cardiovascular: Rate/Rhythm: regular rate and regular rhythm Heart Sounds: normal S1, normal S2 and + murmur (Grade 2/6 systolic); no gallop Palpation: normal PMI Vessels: normal carotid upstroke and radial pulses present; no carotid bruit Extremities: + edema (3+ lower extremity edema with woody erythema left greater than right) Gastrointestinal (Abdomen): normal bowel sounds, soft, nontender, no hepatosplenomegaly Inspection/Auscultation: + abdomen distended Musculoskeletal: no cyanosis or clubbing, extremities motor strength 5/5 Skin: no rashes, warm and dry + erythema (Bilateral lower extremities) Neurologic: PERRL, EOMI, accommodation nl, no face palsy, no dysarthria Psychiatric: A+Ox3, euthymic affect Results & Data ([facility]) Vital Signs (Past 12 Hours) Vital Signs Temp Pulse Resp BP Pulse Ox 12/16/20 12:10 37.2 C 63 20 133/66 95 12/16/20 08:38 36.8 C 66 19 149/73 H 95 12/16/20 03:00 36.9 C 60 20 95 Laboratory Results Laboratory Results - last 24 hr 12/15/20 12/15/20 12/15/20 11:50 16:57 20:31 WBC RBC Hgb Hct MCV MCH MCHC RDW Std Deviation RDW Coeff of Ilana Plt Count MPV Sodium Potassium Chloride Carbon Dioxide Anion Gap BUN Creatinine Est Cr Clr Drug Dosing Est GFR ( Amer) Est GFR (Non-Af Amer) BUN/Creatinine Ratio Glucose POC Glucose 189 H 167 H Calcium Magnesium SARS-CoV-2 (PCR) NEGATIVE 12/16/20 12/16/20 12/16/20 05:42 05:42 07:22 WBC 8.67 RBC 3.04 L Hgb 8.6 L Hct 27.9 L MCV 91.8 MCH 28.3 MCHC 30.8 L RDW Std Deviation 55.0 H RDW Coeff of Ilana 16.4 H Plt Count 226 MPV 10.2 Sodium 138 Potassium 4.4 Chloride 104 Carbon Dioxide 31 Anion Gap 4.0 BUN 41 H Creatinine 1.97 H Est Cr Clr Drug Dosing 42.8 Est GFR ( Amer) 37.7 Est GFR (Non-Af Amer) 32.5 BUN/Creatinine Ratio 21.0 H Glucose 133 H POC Glucose 163 H Calcium 8.9 Magnesium 2.2 SARS-CoV-2 (PCR) 12/16/20 11:25 WBC RBC Hgb Hct MCV MCH MCHC RDW Std Deviation RDW Coeff of Ilana Plt Count MPV Sodium Potassium Chloride Carbon Dioxide Anion Gap BUN Creatinine Est Cr Clr Drug Dosing Est GFR ( Amer) Est GFR (Non-Af Amer) BUN/Creatinine Ratio Glucose POC Glucose 175 H Calcium Magnesium SARS-CoV-2 (PCR)
[2020-12-16] MEDS: FUROSEMIDE 80 MG in SYRINGE 0 ML IV SCH (16:50)
--- NOTE | 2020-12-16 17:44 | Hospitalist Progress Note ---
Date of Service December 16, 2020 Assessment & Plan (1) Acute on chronic heart failure with preserved ejection fraction (HFpEF): Plan: Present on admission and weight gain CXR showed Cardiomegaly with pulmonary vascular congestion. Probable trace pleural effusions. Was starting on IV lasix 40mg BID Echo showed moderate concentric LVH. No LV wall motion abnormality. EF 50-65 % Nephrology on board for fluid diuretic managment Lasix increased to 80mg BID IV as per nephrology Continue monitor BMP Will monitor I/O Edema Possible LLE cellulitis Doubt about any infection since WBC normal and afebrile Currently on Rocephin IV, might consider to d/c abx Continue monitor closely CKD Creatinine seems to be near baseline Nephrology on board Continue monitor BMP while on IV lasix DM type 2 Hgb 7.5 on 11/03 Continue to hold metformin Continue insulin sliding scale Continue monitor BS Hypothyroidism Continue Levothyroxine YOON BiPAP at bedtime Hyperlipidemia Continue statin Fajardo's esophagus Continue PPI Gout Continue allopurinol DVT prophylaxis SCD/teds -patient with history of life-threatening GI bleed on aspirin as well as warfarin, pt wishes to avoid chemical prophylaxis for now Encourage ambulation Code status Full code Admission and Anticipated Discharge Date Admission Date: December 15, 2020 Subjective Pt was seen and examined for follow up of SOB Sitting in chair with no distress Pt said that his breathing feels much better Denies any chest pain, palpitation, dizziness and fever Physical Exam Physical Exam: General- No acute distress Head- atraumatic Eyes- PERRL, EOMI, ENT- oropharynx clear Neck- supple, no JVD Lungs- clear to auscultation Heart- regular rhythm; + murmur Abdomen- normal bowel sounds, soft, nontender Extremities- no calf tenderness, +edema Neuro- alert, oriented x 3; PERRL, EOMI; no facial palsy; no dysarthria Skin- warm & dry Results & Data Results & Data ([facility]) Vital Signs (Past 12 Hours) Vital Signs Temp Pulse Resp BP Pulse Ox 12/16/20 15:06 36.5 C 73 18 125/66 96 12/16/20 12:10 37.2 C 63 20 133/66 95 12/16/20 08:38 36.8 C 66 19 149/73 H 95
[2020-12-16] MEDS: cefTRIAXone SODIUM 2,000 MG in DEXTROSE 5% 50 ML IV SCH (18:00)
[2020-12-16] MEDS: FERROUS SULFATE 325 MG TAB PO SCH (20:17)
[2020-12-16] MEDS: ATORVASTATIN 40 MG TAB PO SCH (20:18)
[2020-12-16] MEDS: LATANOPROST 0.005% OP SOLN 2.5 ML BTL OP SCH (20:22)
[2020-12-17] MEDS: LEVOTHYROXINE SODIUM 50 MCG TABLET PO SCH (06:21)
[2020-12-17 06:40] LABS: BUN Creatinine Ratio 20.5 (10-20); Calcium 8.9 mg/dl (8.5-10.1); Creatinine Clr Calc Pharmacy 36.6 ml/min; Est GFR (African American) 31.9 ml/min; Est GFR (Non-African American) 27.5 ml/min; Potassium 4.3 mmol/L (3.5-5.1)
[2020-12-17] MEDS: INSULIN ASPART 100 UNITS/ML 3 ML PEN SC SCH ×4 (08:18→20:18)
[2020-12-17] MEDS: INSULIN HUMAN NPH SC SCH ×2 (08:19→16:45)
[2020-12-17] MEDS: cloNIDine HCL 0.3 MG TAB PO SCH ×2 (08:20→20:20)
[2020-12-17] MEDS: PANTOprazole 40 MG TAB PO SCH (08:20)
[2020-12-17] MEDS: carvediloL 25 MG TAB PO SCH ×2 (08:20→20:19)
[2020-12-17] MEDS: allopurinoL 300 MG TAB PO SCH (08:21)
[2020-12-17] MEDS: amLODIPine BESYLATE 5 MG TAB PO SCH (08:21)
[2020-12-17] MEDS: CYANOCOBALAMIN 500 MCG TABLET (VITAMIN B-12) PO SCH (08:21)
[2020-12-17] MEDS: MAGNESIUM OXIDE 400 MG TAB PO SCH (08:21)
[2020-12-17] MEDS: CHOLECALCIFEROL 1,000 UNITS 25 MCG TAB PO SCH (08:22)
[2020-12-17] MEDS: FUROSEMIDE 80 MG in SYRINGE 0 ML IV SCH ×2 (08:22→10:08)
[2020-12-17] MEDS: traMADol HCL 50 MG TABLET PO SCH ×2 (08:25→20:16)
[2020-12-17] MEDS: DOCUSATE SODIUM/SENNA 50/8.6MG TAB PO SCH (08:25)
--- NOTE | 2020-12-17 14:07 | Nephrology Progress Note ---
Date of Service December 17, 2020 Assessment & Plan (1) Chronic kidney disease, stage 3: Plan: CKD 3B or early CKD 4; at OP baseline but needs daily labs, daily standing wt d/t risks for worsening renal function with diuresis -will give lasix 60 mg IV x one today (am dose held already) then reassess tomorrow -1.5L FR ordered -continue daily standing wts qAM and low Na diet as ordered Present on Admission?: Yes Admission and Anticipated Discharge Date Admission Date: December 15, 2020 Subjective volume status cont to improve; walking w/ assist in hallway; LE redness/edema better; did have severe cramps w/ aggressive lasix dosing yesterday he states; less abd fullness; less chest pressure; +constipation Review of Systems Review of Systems: All systems reviewed & are unremarkable except as noted in Subjective Physical Exam Constitutional: well developed, well nourished, + obese and cooperative; no acute distress Eyes: EOM intact bilaterally ENMT: Ears: no external ear abnormality Nose: no external nose abnormality Mouth: + dry oral mucous membranes Neck: no nuchal rigidity Respiratory: normal respiratory effort Auscultation: + diminished lung sounds on 1L 02NC Cardiovascular: Rate/Rhythm: regular rate and regular rhythm Heart Sounds: + murmur Extremities: + edema (2+ BLE) Gastrointestinal (Abdomen): Inspection/Auscultation: + abdomen distended and normal bowel sounds Percussion/Palpation: abdomen soft; abdomen nontender Musculoskeletal: Extremities: strength 5/5 throughout Skin: + skin tightening (with redness well demarcated patches LLE medial calf) Neurologic: robles, fluent speech, no tremor Psychiatric: Orientation: alert and oriented x 3 Eye Contact: good eye contact Speech: normal rate/rhythm/volume of speech Results & Data ([facility]) Vital Signs (Past 12 Hours) Vital Signs Temp Pulse Pulse Resp BP BP Pulse Ox 12/17/20 11:06 36.4 C L 62 18 157/71 H 93 12/17/20 08:04 36.6 C 60 20 144/68 H 96 12/17/20 07:30 65 12/17/20 02:58 36.8 C 64 20 120/63 95 Laboratory Results 12/16/20 05:42 12/17/20 05:25
[2020-12-17] MEDS ORDERED: FUROSEMIDE 60 MG in SYRINGE 0 ML IV ONE (14:15)
--- NOTE | 2020-12-17 15:53 | Cardiology Progress Note ---
Date of Service December 17, 2020 Assessment & Plan (1) S/P AVR (aortic valve replacement): (2) Hypertensive heart disease with acute on chronic diastolic congestive heart failure: (3) Anemia: (4) Chronic kidney disease, stage 3: Plan: Patient is a complex 75-year-old male presents with diastolic heart failure increasing abdominal girth and lower extremity edema gradually worsening over 2 months. Complicated by chronic CKD and renal insufficiency variation. Hyp ertension chronically labile. Patient estimates 20 pound weight gain with findings reflective of right greater than left heart failure with leg lower extremity edema and abdominal distention Echocardiogram 12/15/2020 demonstrates preserved LV systolic function with diastolic dysfunction mildly elevated pulmonary pressures and normally functioning aortic valve bioprosthesis. Overall improved clinically with less edema and increasing abdominal girth since IV diuretics initiated. Has come at the cost of renal function and diuretics being adjusted by nephrology. No changes in cardiac medication Admission and Anticipated Discharge Date Admission Date: December 15, 2020 Subjective Patient was seen and examined, chart, medications, telemetry reviewed. Patient feels improved today after diuresis. Less abdominal distention and leg edema. Had significant leg cramping overnight. Renal insufficiency worsened slightly today Review of Systems Review of Systems: All systems reviewed & are unremarkable except as noted in Subjective Physical Exam Constitutional: WD/WN, vitals as above + obese; no acute distress Eyes: PERRL, conjunctivae normal, anicteric sclerae ENMT: external ear and nose normal, oropharynx normal Neck: trachea midline, no thyromegaly + thick neck Respiratory: normal respiratory effort, lungs clear to auscultation Cardiovascular: Rate/Rhythm: regular rate and regular rhythm Heart Sounds: normal S1, normal S2 and + murmur (Grade 2/6 systolic); no gallop Palpation: normal PMI Vessels: normal carotid upstroke and radial pulses present; no carotid bruit Extremities: + edema (2-3+ lower extremity edema with woody erythema, improved slightly) Gastrointestinal (Abdomen): normal bowel sounds, soft, nontender, no hepatosplenomegaly Inspection/Auscultation: + abdomen distended (Less distended than prior day) Musculoskeletal: no cyanosis or clubbing, extremities motor strength 5/5 Skin: no rashes, warm and dry + erythema (Bilateral lower extremities) Neurologic: PERRL, EOMI, accommodation nl, no face palsy, no dysarthria Psychiatric: A+Ox3, euthymic affect Results & Data ([facility]) Vital Signs (Past 12 Hours) Vital Signs Temp Pulse Pulse Resp BP Pulse Ox 12/17/20 11:06 36.4 C L 62 18 157/71 H 93 12/17/20 08:04 36.6 C 60 20 144/68 H 96 12/17/20 07:30 65 Laboratory Results Laboratory Results - last 24 hr 12/16/20 12/16/20 12/17/20 16:18 20:12 05:25 Sodium 135 L Potassium 4.3 Chloride 100 Carbon Dioxide 29 Anion Gap 6.0 BUN 46 H Creatinine 2.26 H Est Cr Clr Drug Dosing 36.6 Est GFR ( Amer) 31.9 Est GFR (Non-Af Amer) 27.5 BUN/Creatinine Ratio 20.5 H Glucose 156 H POC Glucose 121 H 148 H Calcium 8.9 12/17/20 12/17/20 07:04 11:35 Sodium Potassium Chloride Carbon Dioxide Anion Gap BUN Creatinine Est Cr Clr Drug Dosing Est GFR ( Amer) Est GFR (Non-Af Amer) BUN/Creatinine Ratio Glucose POC Glucose 187 H 210 H Calcium
[2020-12-17] MEDS: cefTRIAXone SODIUM 2,000 MG in DEXTROSE 5% 50 ML IV SCH (19:44)
--- NOTE | 2020-12-17 19:44 | Electrocardiogram Report ---
Test Reason : Blood Pressure : / mmHG Vent. Rate : 062 BPM Atrial Rate : 062 BPM P-R Int : 250 ms QRS Dur : 072 ms QT Int : 442 ms P-R-T Axes : 048 046 062 degrees QTc Int : 448 ms Poor data quality, interpretation may be adversely affected Sinus rhythm with 1st degree A-V block Possible Anterior infarct (cited on or before 22-FEB-2016) Abnormal ECG When compared with ECG of 14-OCT-2020 19:07, No significant change was found Confirmed by Russ Pabon ([id number]) on 12/17/2020 7:43:49 PM Referred By: Confirmed By:Russ Pabon
--- NOTE | 2020-12-17 20:09 | Hospitalist Progress Note ---
Date of Service December 17, 2020 Assessment & Plan (1) Acute on chronic heart failure with preserved ejection fraction (HFpEF): Plan: per Dr. Park's notes" Present on admission and weight gain CXR showed Cardiomegaly with pulmonary vascular congestion. Probable trace pleural effusions. Was started on IV lasix 40mg BID Echo showed moderate concentric LVH. No LV wall motion abnormality. EF 50-65 % Nephrology on board for fluid diuretic management Lasix increased to 80mg BID IV as per nephrology Continue monitor BMP Will monitor I/O / crea increased: 1.9 to 2.2 Lasix 60mg IV ordered monitore crea LLE cellulitis improving continue Rocephin IV Continue monitor closely CKD 3 or 4 as per above DM type 2 Hgb 7.5 on 11/03 Continue to hold metformin Continue insulin sliding scale Continue monitor BS Hypothyroidism Continue Levothyroxine YOON BiPAP at bedtime Hyperlipidemia Continue statin Fajardo's esophagus Continue PPI Gout Continue allopurinol DVT prophylaxis SCD/TEDS -patient with history of life-threatening GI bleed on aspirin as well as warfarin, pt wishes to avoid chemical prophylaxis for now Encourage ambulation Code status Full code Disposition pending Admission and Anticipated Discharge Date Admission Date: December 15, 2020 Subjective ff up for acute CHF seen resting in bedside chair, comfortable not in distress states he feels improved overall denies SOB at rest no chest pain, palpitations, dizziness no leg pain no fever/chills no other symptoms Review of Systems Review of Systems: all negative and reviewed except for above Physical Exam Physical Exam: General- oriented x 3, not in distress, speaks in sentences with no effort or accessory muscle use Head- atraumatic Eyes- PERRL, EOMI, anicteric ENT- oropharynx clear Neck- supple, no JVD, no adenopathy, no thyromegaly; carotids +2/2, no bruits appreciated Lungs- clear to auscultation bilaterally, no rales/wheezes Heart- normal rate, regular rhythm; no murmur, no gallop, no rub appreciated Abdomen- normal bowel sounds, nondistended, soft, nontender, no masses or hepatosplenomegaly Extremities- (+) grade 2 lower leg edema (+) erythema on the left lower leg- moderate, with mild warmth, no tenderness Neuro- alert, oriented x 3; CN 2-12 grossly intact; motor 5/5 bilaterally;sensation 100% on all extremities; no other gross focal neurologic deficits Skin- warm & dry Results & Data Results & Data ([facility]) Vital Signs (Past 12 Hours) Vital Signs Temp Pulse Pulse Resp BP Pulse Ox 12/17/20 19:20 36.8 C 63 18 121/73 94 12/17/20 16:54 36.3 C L 56 L 18 146/70 H 93 12/17/20 16:00 58 L 12/17/20 11:06 36.4 C L 62 18 157/71 H 93 12/17/20 08:04 36.6 C 60 20 144/68 H 96 all noted and reviewed including below
[2020-12-17] MEDS: FERROUS SULFATE 325 MG TAB PO SCH (20:21)
[2020-12-17] MEDS: ATORVASTATIN 40 MG TAB PO SCH (20:21)
[2020-12-17] MEDS: LATANOPROST 0.005% OP SOLN 2.5 ML BTL OP SCH (20:22)
[2020-12-18] MEDS: LEVOTHYROXINE SODIUM 50 MCG TABLET PO SCH (05:59)
[2020-12-18] MEDS: INSULIN ASPART 100 UNITS/ML 3 ML PEN SC SCH ×4 (08:03→21:27)
[2020-12-18] MEDS: INSULIN HUMAN NPH SC SCH ×2 (08:04→17:15)
[2020-12-18] MEDS: CHOLECALCIFEROL 1,000 UNITS 25 MCG TAB PO SCH (08:05)
[2020-12-18] MEDS: MAGNESIUM OXIDE 400 MG TAB PO SCH (08:06)
[2020-12-18] MEDS: CYANOCOBALAMIN 500 MCG TABLET (VITAMIN B-12) PO SCH (08:06)
[2020-12-18] MEDS: carvediloL 25 MG TAB PO SCH ×2 (08:06→21:24)
[2020-12-18] MEDS: PANTOprazole 40 MG TAB PO SCH (08:06)
[2020-12-18] MEDS: allopurinoL 300 MG TAB PO SCH (08:06)
[2020-12-18] MEDS: DOCUSATE SODIUM/SENNA 50/8.6MG TAB PO SCH (08:11)
[2020-12-18] MEDS: traMADol HCL 50 MG TABLET PO SCH ×2 (08:13→21:35)
[2020-12-18] MEDS: amLODIPine BESYLATE 5 MG TAB PO SCH (08:15)
[2020-12-18] MEDS: cloNIDine HCL 0.3 MG TAB PO SCH ×2 (08:15→21:25)
[2020-12-18] MEDS ORDERED: FUROSEMIDE 60 MG in SYRINGE 0 ML IV ONE (09:00)
[2020-12-18 09:01] LABS: BUN Creatinine Ratio 24.2 (10-20); Calcium 9.3 mg/dl (8.5-10.1); Creatinine Clr Calc Pharmacy 39.1 ml/min; Est GFR (African American) 34.7 ml/min; Est GFR (Non-African American) 29.9 ml/min; Potassium 4.2 mmol/L (3.5-5.1)
--- NOTE | 2020-12-18 11:27 | Cardiology Progress Note ---
Date of Service December 18, 2020 Assessment & Plan (1) S/P AVR (aortic valve replacement): (2) Hypertensive heart disease with acute on chronic diastolic congestive heart failure: (3) Anemia: (4) Chronic kidney disease, stage 3: Plan: Complex 75-year-old male admitted with acute decompensated diastolic heart failure, abdominal bloating/distention and lower extremity peripheral edema. Course complicated by acute on chronic renal dysfunction. Blood pressures are notably chronically labile, acceptably controlled. Patient continues to respond to IV diuretics. He remains volume overloaded. Continue IV diuresis as prescribed, principally adjusted/managed by nephrology. Admission and Anticipated Discharge Date Admission Date: December 15, 2020 Supervising Physician Co-Signing Physician Notes Patient seen and examined, chart, medications, telemetry reviewed. Agree with plan as outlined above. Patient slowly making progress with decompensated diastolic heart failure. Renal function currently stable Subjective Patient seen and examined. Chart, medications, and telemetry reviewed. Telemetry reveals sinus in the 60 to 80 bpm range with rare PVC Received 60 mg of IV Lasix during my evaluation Patient notes feeling considerably better in regards to dyspnea. Notes ongoing abdominal bloating as well as lower extremity fluid. No chest pain. No palpitations. No dizziness or syncope. No fevers or chills. Review of Systems Review of Systems: Complete review of system is otherwise as stated above, negative, or noncontributory. Physical Exam Physical Exam: General: A&Ox3. NAD. HENT: Normocephalic. Atraumatic. Eyes: PER. Conjunctiva pink, sclera clear. Neck: + JVD. Heart: RRR. Grade II/ systolic murmur. No diastolic murmur. No rub. Lungs: Diminished however clear to auscultation. Abdomen: +BS. Soft. Distended. Nontender. Extremities: 1+ edema to the knees. + Erythema. No clubbing. No cyanosis. Limited neurological examination is without focal deficits. Pulses: radial=2/4, posterior tibial=1/4. Results & Data ([facility]) Vital Signs (Past 12 Hours) Vital Signs Temp Pulse Pulse Resp BP Pulse Ox 12/18/20 08:17 75 150/67 H 12/18/20 08:15 37.0 C 66 16 94/63 L 98 12/18/20 07:15 66 12/18/20 03:50 36.8 C 55 L 18 100/51 L 94 Laboratory Results Laboratory Results - last 24 hr 12/17/20 12/17/20 12/17/20 11:35 16:37 20:16 Sodium Potassium Chloride Carbon Dioxide Anion Gap BUN Creatinine Est Cr Clr Drug Dosing Est GFR ( Amer) Est GFR (Non-Af Amer) BUN/Creatinine Ratio Glucose POC Glucose 210 H 171 H 182 H Calcium 12/18/20 12/18/20 12/18/20 07:26 08:07 11:00 Sodium 137 Potassium 4.2 Chloride 101 Carbon Dioxide 31 Anion Gap 5.0 BUN 51 H Creatinine 2.11 H Est Cr Clr Drug Dosing 39.1 Est GFR ( Amer) 34.7 Est GFR (Non-Af Amer) 29.9 BUN/Creatinine Ratio 24.2 H Glucose 192 H POC Glucose 168 H 207 H Calcium 9.3
--- NOTE | 2020-12-18 17:49 | Nephrology Progress Note ---
Date of Service December 18, 2020 Assessment & Plan (1) Chronic kidney disease, stage 3: Plan: CKD 3B or early CKD 4; at OP baseline but needs daily labs, daily standing wt d/t risks for worsening renal function with diuresis; at home he takes lasix 80/20 -had lasix 60 mg IV x one today; no further dosing indicated as he is clinically improving but still some way to go; reassess tomorrow -1.5L FR to continue -continue daily standing wts qAM and low Na diet as ordered Admission and Anticipated Discharge Date Admission Date: December 15, 2020 Subjective slept well; ambulating; feels breathing improved and edema at baseline Review of Systems Review of Systems: All systems reviewed & are unremarkable except as noted in Subjective Physical Exam Constitutional: well developed, well nourished, + obese and cooperative; no acute distress Eyes: EOM intact bilaterally ENMT: Ears: no external ear abnormality Nose: no external nose abnormality Mouth: + dry oral mucous membranes Neck: no nuchal rigidity Respiratory: normal respiratory effort Auscultation: + diminished lung sounds remains on 2L 02nc Cardiovascular: Rate/Rhythm: regular rate and regular rhythm Heart Sounds: + murmur Extremities: + edema (1+ LLE, trace RLE) Gastrointestinal (Abdomen): Inspection/Auscultation: + abdomen distended and normal bowel sounds Percussion/Palpation: abdomen soft; abdomen nontender Musculoskeletal: Extremities: strength 5/5 throughout Skin: + skin tightening (with redness well demarcated patches LLE medial calf) Psychiatric: Orientation: alert and oriented x 3 Eye Contact: good eye contact Speech: normal rate/rhythm/volume of speech Results & Data ([facility]) Vital Signs (Past 12 Hours) Vital Signs Temp Pulse Pulse Resp BP Pulse Ox 12/18/20 16:30 36.9 C 96 H 18 124/63 99 12/18/20 16:07 60 12/18/20 11:00 36.8 C 96 H 18 131/66 96 12/18/20 08:17 75 150/67 H 12/18/20 08:15 37.0 C 66 16 94/63 L 98 12/18/20 07:15 66 Laboratory Results 12/16/20 05:42 12/18/20 08:07
[2020-12-18] MEDS: cefTRIAXone SODIUM 2,000 MG in DEXTROSE 5% 50 ML IV SCH (18:38)
--- NOTE | 2020-12-18 18:45 | Hospitalist Progress Note ---
Date of Service December 18, 2020 Assessment & Plan (1) Acute on chronic heart failure with preserved ejection fraction (HFpEF): Plan: per Dr. Park's notes" Present on admission and weight gain CXR showed Cardiomegaly with pulmonary vascular congestion. Probable trace pleural effusions. Was started on IV lasix 40mg BID Echo showed moderate concentric LVH. No LV wall motion abnormality. EF 50-65 % Nephrology on board for fluid diuretic management Lasix increased to 80mg BID IV as per nephrology Continue monitor BMP Will monitor I/O 12/18/2020 crea increased: 1.9 to 2.2, improved to 2.1 Lasix 60mg IV one dose ordered Diuresing fairly, leg edema seems to be improving gradually Continue to monitor monitore crea LLE cellulitis improving continue Rocephin IV Continue monitor closely CKD 3 or 4 as per above DM type 2 Hgb 7.5 on 11/03 Continue to hold metformin Continue insulin sliding scale Continue monitor BS Hypothyroidism Continue Levothyroxine YOON BiPAP at bedtime Hyperlipidemia Continue statin Fajardo's esophagus Continue PPI Gout Continue allopurinol DVT prophylaxis SCD/TEDS -patient with history of life-threatening GI bleed on aspirin as well as warfarin, pt wishes to avoid chemical prophylaxis for now Encourage ambulation Code status Full code Disposition pending Admission and Anticipated Discharge Date Admission Date: December 15, 2020 Subjective For acute CHF exacerbation, leg cellulitis Seen resting in bed, sitting up, the edge of the bed, in good spirits States he feels fine overall Breathing is improving No leg pain No other symptoms Review of Systems Review of Systems: All reviewed and negative except for above Physical Exam Physical Exam: General- oriented x 3, not in distress, speaks in sentences with no effort or accessory muscle use Eyes- anicteric Neck- no JVD Lungs-mild rales at the bases, no wheezing Heart- normal rate, regular rhythm; no murmurs Abdomen- normal bowel sounds, nondistended, soft, nontender Extremities-grade 2 bilateral lower extremity edema, with erythema, improving, no calf tenderness Neuro- alert, oriented x 3; no gross focal neurologic deficits Skin- warm & dry Results & Data Results & Data ([facility]) Vital Signs (Past 12 Hours) Vital Signs Temp Pulse Pulse Resp BP Pulse Ox 12/18/20 16:30 36.9 C 96 H 18 124/63 99 12/18/20 16:07 60 12/18/20 11:00 36.8 C 96 H 18 131/66 96 12/18/20 08:17 75 150/67 H 12/18/20 08:15 37.0 C 66 16 94/63 L 98 12/18/20 07:15 66 All noted are negative except for above
[2020-12-18] MEDS: LATANOPROST 0.005% OP SOLN 2.5 ML BTL OP SCH (21:25)
[2020-12-18] MEDS: FERROUS SULFATE 325 MG TAB PO SCH (21:25)
[2020-12-18] MEDS: ATORVASTATIN 40 MG TAB PO SCH (21:25)
[2020-12-19] MEDS: LEVOTHYROXINE SODIUM 50 MCG TABLET PO SCH (05:33)
[2020-12-19 07:19] LABS: BUN Creatinine Ratio 24.9 (10-20); Calcium 9.5 mg/dl (8.5-10.1); Est GFR (African American) 35.7 ml/min; Est GFR (Non-African American) 30.8 ml/min; Potassium 4.1 mmol/L (3.5-5.1)
[2020-12-19] MEDS: INSULIN ASPART 100 UNITS/ML 3 ML PEN SC SCH ×4 (08:11→20:45)
[2020-12-19] MEDS: INSULIN HUMAN NPH SC SCH ×2 (08:12→16:52)
[2020-12-19] MEDS: CHOLECALCIFEROL 1,000 UNITS 25 MCG TAB PO SCH (08:13)
[2020-12-19] MEDS: carvediloL 25 MG TAB PO SCH ×2 (08:13→20:43)
[2020-12-19] MEDS: amLODIPine BESYLATE 5 MG TAB PO SCH (08:13)
[2020-12-19] MEDS: PANTOprazole 40 MG TAB PO SCH (08:13)
[2020-12-19] MEDS: MAGNESIUM OXIDE 400 MG TAB PO SCH (08:13)
[2020-12-19] MEDS: allopurinoL 300 MG TAB PO SCH (08:13)
[2020-12-19] MEDS: cloNIDine HCL 0.3 MG TAB PO SCH ×2 (08:13→20:44)
[2020-12-19] MEDS: CYANOCOBALAMIN 500 MCG TABLET (VITAMIN B-12) PO SCH (08:14)
[2020-12-19] MEDS: DOCUSATE SODIUM/SENNA 50/8.6MG TAB PO SCH (08:16)
[2020-12-19] MEDS: traMADol HCL 50 MG TABLET PO SCH ×2 (08:16→20:48)
--- NOTE | 2020-12-19 08:26 | Nephrology Progress Note ---
Date of Service December 19, 2020 Assessment & Plan (1) Chronic kidney disease, stage 3: Plan: CKD 3B or early CKD 4; renal function has been stable at OP baseline; daily standing wt downtrending slowly; at home he takes lasix 80/20 diuresing well >> D/C had been contemplated for today but still some BP med changes to make; had 60 mg IV laix x 1 today -agree w/ cardiology d/c recs -will sign off; pls call if ?; care coordinated w/ Dr Lott NEPHRO DISCHARGE RECOMMENDATIONS >continue 1.5 liter (about 50 oz) daily fluid limit >continue less than 2 gm daily sodium diet >continue daily standing weight until seen by PCP (within 7-10 days of discharge) and take list of weights to that visit >check chemistry panel at PCP visit >discharge on 80 mg furosemide in morning and another 40 mg at least 4 hours later >needs follow up apppointment with Dr Yost, his regular park interpreter, in April 2021 please; sooner if follow up labs or leg swelling worsen Admission and Anticipated Discharge Date Admission Date: December 15, 2020 Subjective feels more improvement in edema; still on 02 but ambulates w/o much CALZ[place]; rash improving Review of Systems Review of Systems: All systems reviewed & are unremarkable except as noted in Subjective Physical Exam Constitutional: well developed, well nourished, + obese and cooperative; no acute distress Eyes: EOM intact bilaterally ENMT: Ears: no external ear abnormality Nose: no external nose abnormality Mouth: + dry oral mucous membranes Neck: no nuchal rigidity Respiratory: normal respiratory effort Auscultation: + diminished lung sounds Cardiovascular: Rate/Rhythm: regular rate and regular rhythm Heart Sounds: + murmur Extremities: + edema (1+ BLE) Gastrointestinal (Abdomen): Inspection/Auscultation: + abdomen distended and normal bowel sounds Percussion/Palpation: abdomen soft; abdomen nontender Musculoskeletal: Extremities: strength 5/5 throughout Skin: + skin tightening (with redness well demarcated patches LLE medial calf) Psychiatric: Orientation: alert and oriented x 3 Eye Contact: good eye contact Speech: normal rate/rhythm/volume of speech Results & Data ([facility]) Vital Signs (Past 12 Hours) Vital Signs Temp Pulse Pulse Resp BP BP Pulse Ox 12/19/20 07:24 61 12/19/20 03:42 90 12/19/20 03:24 36.6 C 59 L 19 140/65 100 12/18/20 22:59 59 L 12/18/20 22:53 36.9 C 64 18 133/64 98 12/18/20 21:23 63 130/67 Laboratory Results 12/16/20 05:42 12/19/20 05:55
--- NOTE | 2020-12-19 09:25 | Cardiology Progress Note ---
Date of Service December 19, 2020 Assessment & Plan (1) S/P AVR (aortic valve replacement): (2) Hypertensive heart disease with acute on chronic diastolic congestive heart failure: (3) Anemia: (4) Chronic kidney disease, stage 3: Plan: Complex 75-year-old male admitted with abdominal bloating/distention and lower extremity peripheral edema, acute decompensated diastolic heart failure. Course complicated by acute on chronic renal dysfunction. Blood pressures are notably chronically labile, currently well controlled. Patient continues to respond to IV diuretics though patient remains mildly volume overloaded. Recommend 60 mg IV furosemide again today then likely changing to oral furosemide with dosing increased from 80 AM & 20 PM to 80 AM & 40 mg in the early afternoon. Amlodipine will be decreased from 10 mg/day to 5 mg/day. Low dose Hydralazine (12.5 mg twice a day) added for additional blood pressure control. Continue sodium (less than 2 grams) and fluid (1.5 L) restrictions. Close cardiology follow-up on discharge. Admission and Anticipated Discharge Date Admission Date: December 15, 2020 Supervising Physician Co-Signing Physician Notes Patient seen and examined, chart, medications, telemetry reviewed. Overall is demonstrated improved with diuresis. Chronic leg edema an issue as noted will be addressed as above Subjective Patient seen and examined. Chart, medications, and telemetry reviewed. Feeling better and better. Dyspnea at baseline. Less abdominal bloating. His legs continue to improve in regards to edema as well as erythema. No chest pain. No palpitations. No dizziness or syncope. No fevers or chills. Telemetry: Sinus ranging from the 50s to the 70s, with an occasional PVC. Input/Output -980 ml, -931 ml, and -755 mL over the last 3 days. Weights: Admission: 118.4 kg. Today: 111.8 kg. Creatinine improved, 2.06 mg/dL this morning. Review of Systems Review of Systems: Complete review of systems is otherwise as stated above, negative, or noncontributory. Physical Exam Physical Exam: General: A&Ox3. NAD. HENT: Normocephalic. Atraumatic. Eyes: PER. Conjunctiva pink, sclera clear. Neck: + JVD. Heart: RRR. Grade II/ systolic murmur. No diastolic murmur. No rub. Lungs: Diminished however clear to auscultation. Abdomen: +BS. Soft. Distended. Nontender. Extremities: 1+ edema to the knees. + Erythema. No clubbing. No cyanosis. Limited neurological examination is without focal deficits. Pulses: radial=2/4, posterior tibial=1/4. Results & Data ([facility]) Vital Signs (Past 12 Hours) Vital Signs Temp Pulse Pulse Resp BP Pulse Ox 12/19/20 07:41 36.5 C 89 16 122/63 97 12/19/20 07:24 61 12/19/20 03:42 90 12/19/20 03:24 36.6 C 59 L 19 140/65 100 12/18/20 22:59 59 L 12/18/20 22:53 36.9 C 64 18 133/64 98 Laboratory Results Laboratory Results - last 24 hr 12/18/20 12/18/20 12/18/20 11:00 16:13 20:09 Sodium Potassium Chloride Carbon Dioxide Anion Gap BUN Creatinine Est Cr Clr Drug Dosing Est GFR ( Amer) Est GFR (Non-Af Amer) BUN/Creatinine Ratio Glucose POC Glucose 207 H 147 H 164 H Calcium 12/19/20 12/19/20 05:55 07:43 Sodium 138 Potassium 4.1 Chloride 102 Carbon Dioxide 30 Anion Gap 5.0 BUN 51 H Creatinine 2.06 H Est Cr Clr Drug Dosing 40.0 Est GFR ( Amer) 35.7 Est GFR (Non-Af Amer) 30.8 BUN/Creatinine Ratio 24.9 H Glucose 157 H POC Glucose 179 H Calcium 9.5
[2020-12-19] MEDS ORDERED: FUROSEMIDE 60 MG in SYRINGE 0 ML IV ONE (10:00)
--- NOTE | 2020-12-19 18:13 | Hospitalist Progress Note ---
Date of Service December 19, 2020 Assessment & Plan (1) Acute on chronic heart failure with preserved ejection fraction (HFpEF): Plan: per Dr. Park's notes" Present on admission and weight gain CXR showed Cardiomegaly with pulmonary vascular congestion. Probable trace pleural effusions. Was started on IV lasix 40mg BID Echo showed moderate concentric LVH. No LV wall motion abnormality. EF 50-65 % Nephrology on board for fluid diuretic management Lasix increased to 80mg BID IV as per nephrology Continue monitor BMP Will monitor I/O 12/19/2020 crea increased: 1.9 to 2.2, improved to 2.0 Lasix 60mg IV, transition to PO tomorrow Continue to monitor monitore crea LLE cellulitis improving continue Rocephin IV, plan to d/c on Cephalexin x 5 more days Continue monitor closely HTN Amlodipine decreased, Hydralazine added CKD 3 or 4 as per above DM type 2 Hgb 7.5 on 11/03 Continue to hold metformin Continue insulin sliding scale Continue monitor BS Hypothyroidism Continue Levothyroxine YOON BiPAP at bedtime Hyperlipidemia Continue statin Fajardo's esophagus Continue PPI Gout Continue allopurinol DVT prophylaxis SCD/TEDS -patient with history of life-threatening GI bleed on aspirin as well as warfarin, pt wishes to avoid chemical prophylaxis for now Encourage ambulation Code status Full code Disposition possible dc home tomorrow with Home health services Admission and Anticipated Discharge Date Admission Date: December 15, 2020 Subjective ff up for CHF, etc seen resting in chair, comfortable states he feels fine overall breathing continues to improve no chest pain, palpitations, dizziness no other symptoms Review of Systems Review of Systems: all noted and reviewed , negative except for above Physical Exam 2 Physical Exam: General- oriented x 3, not in distress, speaks in sentences with no effort or accessory muscle use Eyes- anicteric Neck- no JVD Lungs- clear BS BL no wheezing Heart- normal rate, regular rhythm; no murmurs Abdomen- normal bowel sounds, nondistended, soft, nontender Extremities- mild lower ext edema: improving, mild erythema: improving, no warmth, no calf tenderness Neuro- alert, oriented x 3; no gross focal neurologic deficits Skin- warm & dry Results & Data Results & Data ([facility]) Vital Signs (Past 12 Hours) Vital Signs Temp Pulse Pulse Pulse Pulse Pulse Pulse 12/19/20 15:26 59 L 12/19/20 11:22 77 73 78 70 12/19/20 11:11 36.4 C L 60 12/19/20 07:41 36.5 C 89 12/19/20 07:24 61 Pulse Resp Resp Resp Resp Resp Resp 12/19/20 15:26 12/19/20 11:22 71 18 18 18 17 15 12/19/20 11:11 16 12/19/20 07:41 16 12/19/20 07:24 BP Pulse Ox Pulse Ox Pulse Ox Pulse Ox Pulse Ox Pulse Ox 12/19/20 15:26 12/19/20 11:22 88 L 93 85 L 91 90 12/19/20 11:11 132/66 99 12/19/20 07:41 122/63 97 12/19/20 07:24 all noted and reviewed including below
[2020-12-19] MEDS: cefTRIAXone SODIUM 2,000 MG in DEXTROSE 5% 50 ML IV SCH (18:51)
[2020-12-19] MEDS: hydrALAZINE HCL 25 MG TAB PO SCH (20:41)
[2020-12-19] MEDS: FERROUS SULFATE 325 MG TAB PO SCH (20:42)
[2020-12-19] MEDS: ATORVASTATIN 40 MG TAB PO SCH (20:44)
[2020-12-19] MEDS: LATANOPROST 0.005% OP SOLN 2.5 ML BTL OP SCH (20:44)
[2020-12-20] MEDS: LEVOTHYROXINE SODIUM 50 MCG TABLET PO SCH (05:52)
[2020-12-20] MEDS: INSULIN ASPART 100 UNITS/ML 3 ML PEN SC SCH ×2 (08:50→12:45)
[2020-12-20] MEDS: INSULIN HUMAN NPH SC SCH (08:53)
[2020-12-20] MEDS: allopurinoL 300 MG TAB PO SCH (08:55)
[2020-12-20] MEDS: carvediloL 25 MG TAB PO SCH (08:56)
[2020-12-20] MEDS: CHOLECALCIFEROL 1,000 UNITS 25 MCG TAB PO SCH (08:56)
[2020-12-20] MEDS: cloNIDine HCL 0.3 MG TAB PO SCH (08:57)
[2020-12-20] MEDS: PANTOprazole 40 MG TAB PO SCH (08:58)
[2020-12-20] MEDS: hydrALAZINE HCL 25 MG TAB PO SCH (08:58)
[2020-12-20] MEDS: MAGNESIUM OXIDE 400 MG TAB PO SCH (08:58)
[2020-12-20] MEDS ORDERED: FUROSEMIDE 80 MG TAB PO SCH ×2 (09:00)
[2020-12-20] MEDS ORDERED: amLODIPine BESYLATE 5 MG TAB PO SCH (09:00)
[2020-12-20] MEDS: CYANOCOBALAMIN 500 MCG TABLET (VITAMIN B-12) PO SCH (09:50)
[2020-12-20] MEDS: traMADol HCL 50 MG TABLET PO SCH (09:50)
[2020-12-20] MEDS: DOCUSATE SODIUM/SENNA 50/8.6MG TAB PO SCH (09:52)
--- NOTE | 2020-12-20 11:49 | Cardiology Progress Note ---
Date of Service December 20, 2020 Assessment & Plan (1) S/P AVR (aortic valve replacement): (2) Hypertensive heart disease with acute on chronic diastolic congestive heart failure: (3) Anemia: (4) Chronic kidney disease, stage 3: Plan: The patient is currently on oral diuretics. I think he is reaching you euvolemic state. He will need several more days of antibiotics for the cellulitis of the left lower extremity. Otherwise he is clinically stable. Discharge planning is indicated. Admission and Anticipated Discharge Date Admission Date: December 15, 2020 Subjective Patient sitting in a chair. Overall feels better. Review of Systems Review of Systems: Review of Systems: See HPI for pertinent positives. All other 10 point review of systems are negative. Physical Exam Physical Exam: General: no acute distress and stated age Head: normocephalic, no masses, lesions, tenderness or abnormalities Eyes: conjunctiva are pink and non-injected, sclera clear Neck: supple, no adenopathy, no bruits, normal jugular venous pulse, no hepatojugular reflux Chest: normal shape and normal respiratory effort Lungs: clear to auscultation and percussion Cardiac Exam: - regular rate & rhythm, no murmurs gallops or rubs - normal S1, normal S2 Pulses: 2(+) throughout Abdomen: abdomen soft, non-tender, no abnormal masses and no hepatosplenomegaly Musculoskeletal: no gait disturbance, no joint inflammation, no deforming arthritis Extremities: Cellulitis of the left lower extremity Neuro: grossly normal exam Results & Data ([facility]) Vital Signs (Past 12 Hours) Vital Signs Temp Pulse Pulse Resp BP Pulse Ox 12/20/20 11:32 36.4 C L 61 20 132/66 95 12/20/20 11:26 86 12/20/20 07:48 36.5 C 82 18 151/72 H 97 12/20/20 06:00 36.6 C 0 L 14 140/66 99 12/20/20 03:00 36.8 C 81 18 138/69 91 Laboratory Results Laboratory Results - last 24 hr 12/19/20 12/19/20 12/20/20 16:09 20:05 07:02 POC Glucose 158 H 157 H 178 H 12/20/20 10:56 POC Glucose 234 H Medications Administered Current Inpatient Medications Acetaminophen (Acetaminophen 325 Mg Tab) 650 mg PO Q4H PRN PRN Reason: Pain or Fever Stop: 01/14/21 17:05 Al Hydrox/Mg Hydrox/Simethicone (Aluminum/Magnesium Susp 30 Ml Udc) 15 ml PO Q4H PRN PRN Reason: Dyspepsia Stop: 01/14/21 17:05 Allopurinol (Allopurinol 300 Mg Tab) 300 mg PO QAM [facility] Stop: 01/15/21 08:59 Last Admin: 12/20/20 08:55 Dose: 300 mg Documented by: Amlodipine Besylate (Amlodipine Besylate 5 Mg Tab) 5 mg PO QAM [facility] Stop: 01/19/21 08:59 Last Admin: 12/20/20 08:55 Dose: 5 mg Documented by: Atorvastatin Calcium (Atorvastatin 40 Mg Tab) 80 mg PO QPM [facility] Stop: 01/14/21 20:59 Last Admin: 12/19/20 20:44 Dose: 80 mg Documented by: Carvedilol (Carvedilol 25 Mg Tab) 50 mg PO BID [facility] Stop: 01/14/21 20:59 Last Admin: 12/20/20 08:56 Dose: 50 mg Documented by: Clonidine HCl (Clonidine Hcl 0.3 Mg Tab) 0.3 mg PO BID [facility] Stop: 01/14/21 20:59 Last Admin: 12/20/20 08:57 Dose: 0.3 mg Documented by: Cyanocobalamin (Cyanocobalamin 500 Mcg Tablet (Vitamin B-12)) 1,000 mcg PO QAM [facility] Stop: 01/15/21 08:59 Last Admin: 12/20/20 09:50 Dose: 1,000 mcg Documented by: Dextrose (Dextrose 50% 50 Ml Syringe) 25 - 50 ml IV UD PRN; Protocol PRN Reason: Hypoglycemia Protocol Stop: 01/14/21 17:05 Ferrous Sulfate (Ferrous Sulfate 325 Mg Tab) 325 mg PO QPM [facility] Stop: 01/14/21 20:59 Last Admin: 12/19/20 20:42 Dose: 325 mg Documented by: Furosemide (Furosemide 80 Mg Tab) 80 mg PO QAM [facility] Stop: 01/19/21 08:59 Last Admin: 12/20/20 08:59 Dose: 80 mg Documented by: Furosemide (Furosemide 40 Mg Tab) 40 mg PO DAILY@1400 [facility] Stop: 01/19/21 13:59 Glucagon (Glucagon For Inj 1 Mg Vial) 1 mg SQ UD PRN; Protocol PRN Reason: Hypoglycemia Protocol Stop: 01/14/21 17:05 Glucose (Glucose 10 Tabs/Tube) 4 - 8 tabs PO UD PRN; Protocol PRN Reason: Hypoglycemia Protocol Stop: 01/14/21 17:05 Glucose (Glucose 40% Gel 15 Gm Tube) 15 - 30 gm PO UD PRN; Protocol PRN Reason: Hypoglycemia Protocol Stop: 01/14/21 17:05 Hydralazine HCl (Hydralazine Hcl 25 Mg Tab) 12.5 mg PO BID [facility] Stop: 01/18/21 20:59 Last Admin: 12/20/20 08:58 Dose: 12.5 mg Documented by: Ceftriaxone Sodium 2,000 mg/ (Dextrose) 70 mls @ 100 mls/hr IV Q24H [facility]; Protocol Stop: 12/22/20 18:59 Last Infusion: 12/19/20 19:44 Dose: Infused Documented by: Insulin Aspart (Insulin Aspart 100 Units/Ml 3 Ml Pen) 0 units SC ACHS [facility] Stop: 01/14/21 20:59 Last Admin: 12/20/20 08:50 Dose: 5 units Documented by: Insulin Human NPH (Insulin Human Nph) 0 - 20 units SC BIDM [facility] Stop: 01/14/21 18:59 Last Admin: 12/20/20 08:53 Dose: 10 units Documented by: Latanoprost (Latanoprost 0.005% Op Soln 2.5 Ml Btl) 1 drops OP PM [facility] Stop: 01/14/21 20:59 Last Admin: 12/19/20 20:44 Dose: 1 drops Documented by: Levothyroxine Sodium (Levothyroxine Sodium 50 Mcg Tablet) 50 mcg PO DAILYBB [facility] Stop: 01/15/21 06:29 Last Admin: 12/20/20 05:52 Dose: 50 mcg Documented by: Magnesium Hydroxide (Magnesium Hydroxide Susp 30 Ml Udc) 30 ml PO Q12H PRN PRN Reason: Constipation Stop: 01/14/21 17:05 Magnesium Oxide (Magnesium Oxide 400 Mg Tab) 400 mg PO QAM [facility] Stop: 01/15/21 08:59 Last Admin: 12/20/20 08:58 Dose: 400 mg Documented by: Miscellaneous (Carbohydrates For Hypoglycemia ) 15 - 30 gm PO UD PRN PRN Reason: Hypoglycemia Protocol Stop: 01/14/21 17:05 Ondansetron HCl (Ondansetron Inj 2 Mg/Ml 2 Ml Vial) 4 mg IV Q6H PRN PRN Reason: Nausea Stop: 01/14/21 17:05 Pantoprazole Sodium (Pantoprazole 40 Mg Tab) 40 mg PO [facility] Stop: 01/15/21 08:59 Last Admin: 12/20/20 08:58 Dose: 40 mg Documented by: Polyethylene Glycol (Polyethylene (Miralax) 17 Gm Pack) 17 gm PO DAILY PRN PRN Reason: Constipation Stop: 01/14/21 17:05 Senna/Docusate Sodium (Docusate Sodium/Senna 50/8.6mg Tab) 1 tab PO [facility] Stop: 01/15/21 08:59 Last Admin: 12/20/20 09:52 Dose: 1 tab Documented by: Tramadol HCl (Tramadol Hcl 50 Mg Tablet) 50 mg PO BID [facility] Stop: 01/14/21 20:59 Last Admin: 12/20/20 09:50 Dose: 50 mg Documented by: Vitamin D (Cholecalciferol 1,000 Units 25 Mcg Tab) 2,000 units PO [facility] Stop: 01/15/21 08:59 Last Admin: 12/20/20 08:56 Dose: 2,000 units Documented by:
[2020-12-20] MEDS ORDERED: FUROSEMIDE 40 MG TAB PO SCH ×2 (14:00→18:57)
--- NOTE | 2020-12-20 14:24 | Hospitalist Progress Note ---
Date of Service December 20, 2020 Assessment & Plan (1) Acute on chronic heart failure with preserved ejection fraction (HFpEF): Plan: Present on admission and weight gain CXR showed Cardiomegaly with pulmonary vascular congestion. Probable trace pleural effusions. Was started on IV lasix 40mg BID Echo showed moderate concentric LVH. No LV wall motion abnormality. EF 50-65 % Lasix increased to 80mg BID IV Appreciate cardiology input and recommendation BMP remains stable with normal electrolytes and creatinine hovering around 2.06 Fluid intake below 1500 mL daily Medically stable and will be discharged home this afternoon LLE cellulitis improving continue Rocephin IV, plan to d/c on Cephalexin x 5 more days Continue monitor closely Will be discharged home this afternoon HTN Amlodipine decreased, Hydralazine added Blood pressure remains stable with current medications CKD 3 or 4 Nephrology on board for fluid diuretic management Remains stable DM type 2 Hgb 7.5 on 11/03 Continue to hold metformin Continue insulin sliding scale Continue monitor BS Hypothyroidism Continue Levothyroxine YOON BiPAP at bedtime Hyperlipidemia Continue statin Fajardo's esophagus Continue PPI Gout Continue allopurinol DVT prophylaxis SCD/TEDS -patient with history of life-threatening GI bleed on aspirin as well as warfarin, pt wishes to avoid chemical prophylaxis for now Encourage ambulation Code status Full code Disposition He will be discharged home this afternoon Admission and Anticipated Discharge Date Admission Date: December 15, 2020 Subjective 12/20/2020 The patient was seen and examined in telemetry unit He denies any complaints today Denies any chest pain, palpitation, shortness of breath and his leg swellings have been improving Review of Systems Review of Systems: All systems reviewed and are unremarkable except as noted below Respiratory: no cough and no dyspnea Cardiovascular: + edema (Has bilateral leg edema of 1+); no chest pain and no palpitations Physical Exam Physical Exam: Sitting on a chair without any acute distress Constitutional: well developed, well nourished and + obese; no acute distress and not ill appearing Eyes: PERRL, conjunctivae normal, anicteric sclerae ENMT: external ear and nose normal, oropharynx normal Neck: trachea midline, no thyromegaly Respiratory: normal respiratory effort; no respiratory distress, no cough and not tachypneic Cardiovascular: Rate/Rhythm: regular rate and regular rhythm; not tachycardic Heart Sounds: normal S1 and normal S2; no murmur Extremities: + edema (1+ edema bilaterally) Gastrointestinal (Abdomen): normal bowel sounds, soft, nontender, no hepatosplenomegaly Musculoskeletal: No acute arthritis in any joint Neurologic: Alert, awake and oriented x3. No focal sensory and motor deficit appreciated Lymphatic: no cervical or axillary lymphadenopathy Results & Data Results & Data ([facility]) Vital Signs (Past 12 Hours) Vital Signs Temp Pulse Pulse Resp BP Pulse Ox 12/20/20 11:32 36.4 C L 61 20 132/66 95 12/20/20 11:26 86 12/20/20 07:48 36.5 C 82 18 151/72 H 97 12/20/20 06:00 36.6 C 0 L 14 140/66 99 12/20/20 03:00 36.8 C 81 18 138/69 91 Medications Administered Current Inpatient Medications Acetaminophen (Acetaminophen 325 Mg Tab) 650 mg PO Q4H PRN PRN Reason: Pain or Fever Stop: 01/14/21 17:05 Al Hydrox/Mg Hydrox/Simethicone (Aluminum/Magnesium Susp 30 Ml Udc) 15 ml PO Q4H PRN PRN Reason: Dyspepsia Stop: 01/14/21 17:05 Allopurinol (Allopurinol 300 Mg Tab) 300 mg PO QAM [facility] Stop: 01/15/21 08:59 Last Admin: 12/20/20 08:55 Dose: 300 mg Documented by: Amlodipine Besylate (Amlodipine Besylate 5 Mg Tab) 5 mg PO QAM [facility] Stop: 01/19/21 08:59 Last Admin: 12/20/20 08:55 Dose: 5 mg Documented by: Atorvastatin Calcium (Atorvastatin 40 Mg Tab) 80 mg PO QPM [facility] Stop: 01/14/21 20:59 Last Admin: 12/19/20 20:44 Dose: 80 mg Documented by: Carvedilol (Carvedilol 25 Mg Tab) 50 mg PO BID [facility] Stop: 01/14/21 20:59 Last Admin: 12/20/20 08:56 Dose: 50 mg Documented by: Clonidine HCl (Clonidine Hcl 0.3 Mg Tab) 0.3 mg PO BID [facility] Stop: 01/14/21 20:59 Last Admin: 12/20/20 08:57 Dose: 0.3 mg Documented by: Cyanocobalamin (Cyanocobalamin 500 Mcg Tablet (Vitamin B-12)) 1,000 mcg PO QAM [facility] Stop: 01/15/21 08:59 Last Admin: 12/20/20 09:50 Dose: 1,000 mcg Documented by: Dextrose (Dextrose 50% 50 Ml Syringe) 25 - 50 ml IV UD PRN; Protocol PRN Reason: Hypoglycemia Protocol Stop: 01/14/21 17:05 Ferrous Sulfate (Ferrous Sulfate 325 Mg Tab) 325 mg PO QPM [facility] Stop: 01/14/21 20:59 Last Admin: 12/19/20 20:42 Dose: 325 mg Documented by: Furosemide (Furosemide 80 Mg Tab) 80 mg PO QAM [facility] Stop: 01/19/21 08:59 Last Admin: 12/20/20 08:59 Dose: 80 mg Documented by: Furosemide (Furosemide 40 Mg Tab) 40 mg PO DAILY@1400 [facility] Stop: 01/19/21 13:59 Last Admin: 12/20/20 13:42 Dose: 40 mg Documented by: Glucagon (Glucagon For Inj 1 Mg Vial) 1 mg SQ UD PRN; Protocol PRN Reason: Hypoglycemia Protocol Stop: 01/14/21 17:05 Glucose (Glucose 10 Tabs/Tube) 4 - 8 tabs PO UD PRN; Protocol PRN Reason: Hypoglycemia Protocol Stop: 01/14/21 17:05 Glucose (Glucose 40% Gel 15 Gm Tube) 15 - 30 gm PO UD PRN; Protocol PRN Reason: Hypoglycemia Protocol Stop: 01/14/21 17:05 Hydralazine HCl (Hydralazine Hcl 25 Mg Tab) 12.5 mg PO BID [facility] Stop: 01/18/21 20:59 Last Admin: 12/20/20 08:58 Dose: 12.5 mg Documented by: Ceftriaxone Sodium 2,000 mg/ (Dextrose) 70 mls @ 100 mls/hr IV Q24H [facility]; Protocol Stop: 12/22/20 18:59 Last Infusion: 12/19/20 19:44 Dose: Infused Documented by: Insulin Aspart (Insulin Aspart 100 Units/Ml 3 Ml Pen) 0 units SC ACHS [facility] Stop: 01/14/21 20:59 Last Admin: 12/20/20 12:45 Dose: 9 units Documented by: Insulin Human NPH (Insulin Human Nph) 0 - 20 units SC BIDM [facility] Stop: 01/14/21 18:59 Last Admin: 12/20/20 08:53 Dose: 10 units Documented by: Latanoprost (Latanoprost 0.005% Op Soln 2.5 Ml Btl) 1 drops OP PM [facility] Stop: 01/14/21 20:59 Last Admin: 12/19/20 20:44 Dose: 1 drops Documented by: Levothyroxine Sodium (Levothyroxine Sodium 50 Mcg Tablet) 50 mcg PO DAILYBB [facility] Stop: 01/15/21 06:29 Last Admin: 12/20/20 05:52 Dose: 50 mcg Documented by: Magnesium Hydroxide (Magnesium Hydroxide Susp 30 Ml Udc) 30 ml PO Q12H PRN PRN Reason: Constipation Stop: 01/14/21 17:05 Magnesium Oxide (Magnesium Oxide 400 Mg Tab) [facility] 01/15/21 08:59 Last Admin: 12/20/20 08:58 Dose: 400 mg Documented by: Miscellaneous (Carbohydrates For Hypoglycemia ) 15 - 30 gm PO UD PRN PRN Reason: Hypoglycemia Protocol Stop: 01/14/21 17:05 Ondansetron HCl (Ondansetron Inj 2 Mg/Ml 2 Ml Vial) 4 mg IV Q6H PRN PRN Reason: Nausea Stop: 01/14/21 17:05 Pantoprazole Sodium (Pantoprazole 40 Mg Tab) [facility] [place] Stop: 01/15/21 08:59 Last Admin: 12/20/20 08:58 Dose: 40 mg Documented by: Polyethylene Glycol (Polyethylene (Miralax) 17 Gm Pack) 17 gm PO DAILY PRN PRN Reason: Constipation Stop: 01/14/21 17:05 Senna/Docusate Sodium (Docusate Sodium/Senna 50/8.6mg Tab) 1 [facility] [place] Stop: 01/15/21 08:59 Last Admin: 12/20/20 09:52 Dose: 1 tab Documented by: Tramadol HCl (Tramadol Hcl 50 Mg Tablet) 50 mg PO BID [facility] Stop: 01/14/21 20:59 Last Admin: 12/20/20 09:50 Dose: 50 mg Documented by: Vitamin D (Cholecalciferol 1,000 Units 25 Mcg Tab) 2,000 units PO QAM [facility] Stop: 01/15/21 08:59 Last Admin: 12/20/20 08:56 Dose: 2,000 units Documented by:
--- NOTE | 2020-12-21 08:19 | Discharge Summary ---
Date of Service December 21, 2020 Admission HPI Per Admitting Provider This is a 75-year-old male who has significant past medical history of HTN, HLD, history of a bioprosthetic AVR in 2010, YOON on BiPAP, chronic HFpEF, insulin- dependent T2DM, diabetic neuropathy, hypothyroidism, gout, CKD stage IIIb, Fajardo's, BPH who presents to ED with at bedside secondary to shortness breath and weight gain x2 months. Patient does have prior history of CHF exacerbation requiring hospitalization per at bedside x2. He states over the past 2 months he has noticed approximately 20 pound weight gain, increased lower extremity edema, progressive shortness of breath with exertion, increased abdominal girth and tightness. He denies any recent fever, chills, sweats, lightheadedness, dizziness, chest pain, palpitations, hemoptysis, nausea, vomiting, abdominal pain, diarrhea, dysuria, increased urgency with urination, increased frequency with urination, hematuria, hematochezia or melena. He does admit to a dry cough which is been present for the past week. He also admits to constipation for which he has been taking MiraLAX. This morning when he weighed himself he was 255. He denies any orthopnea or PND. He sleeps with one pillow and is able to tolerate his BiPAP at night. He also admits to increasing left lower extremity redness. Typically his left leg is brown but over the past 1 to 2 months has become increasingly red. Last week and had blisters on it he feels, "this is better." Patient does take Lasix 80 mg daily and is compliant. His last dose was this morning. He was also seen by PCP on 12/04 who prescribed him an additional 20 mg in the afternoon. He took this for 5 days and stopped it for additional 4 days. When he noticed himself gaining more weight he then started it again. In ED patient made hemodynamically stable and did not require any oxygen. Chest x-ray did reveal pulmonary vascular congestion. His proBNP was elevated at 5258. Further lab abnormalities consistent with chronic renal insufficiency BUN 36 and creatinine 1.94, H&H 8.9 and 29.2, glucose 126. He was ordered 40 mg of IV Lasix in ED. Admission Exam Per Admitting Provider Physical Exam: Constitutional: WD/WN, male, vitals as above, NAD, sitting up in bed, pleasant, conversing easily Head: Normocephalic, Atraumatic Eyes: PERRL, conjunctivae normal, anicteric sclerae ENMT: external ear and nose normal, oropharynx normal Neck: trachea midline, no thyromegaly normal visual inspection Respiratory: normal respiratory effort, lungs clear to auscultation, no wheeze, rales, rhonchi. Normal insp/exp effort, no accessory muscle use Cardiovascular: RRR, VANESSA noted LUSB 2/6, bilateral lower extremity +2 edema, bilateral venous insufficiency left greater than right, evidence of left lower e xtremity cellulitis, increased warmth, negative Homans, pedal pulses +2 and equal bilaterally vessels: no JVD or carotid bruit Chest: normal inspection of chest Abdomen: Distended, protuberant abdomen, normal bowel sounds, soft, nontender, no hepatosplenomegaly Musculoskeletal: no cyanosis or clubbing, extremities motor strength 5/5 Skin: no rashes, warm and dry normal turgor Neurologic: PERRL, EOMI, accommodation nl, no face palsy, no dysarthria CN's II-XI intact bilaterally and moves all extremities Psychiatric: A+Ox3, euthymic affect Lymphatic: no cervical or axillary lymphadenopathy : deferred Principal Diagnosis ACUTE ON CHRONIC CONGESTIVE HEART FAILURE Discharge Exam Constitutional well developed, well nourished and + obese; no acute distress and not ill appearing Eyes PERRL, conjunctivae normal, anicteric sclerae ENMT external ear and nose normal, oropharynx normal Neck trachea midline, no thyromegaly Respiratory normal respiratory effort; no respiratory distress, no cough and not tachypneic Cardiovascular Rate/Rhythm: regular rate and regular rhythm; not tachycardic Heart Sounds: normal S1 and normal S2; no murmur Extremities: + edema (1+ edema bilaterally) Gastrointestinal (Abdomen) normal bowel sounds, soft, nontender, no hepatosplenomegaly Lymphatic no cervical or axillary lymphadenopathy Discharge Data Allergies Allergy/AdvReac Type Severity Reaction Status Date / Time aspirin AdvReac Severe gi bleed Verified 12/15/20 09:58 warfarin AdvReac Severe "bleeding Verified 12/15/20 09:58 with anticoagulants" Consultations 12/15/20 11:19 ED Decision to Admit Stat 12/15/20 11:21 Consult Cardiology Routine Hospital Course (1) Acute on chronic heart failure with preserved ejection fraction (HFpEF): Present on admission and weight gain CXR showed Cardiomegaly with pulmonary vascular congestion. Probable trace pleural effusions. Was started on IV lasix 40mg BID Echo showed moderate concentric LVH. No LV wall motion abnormality. EF 50-65 % Lasix increased to 80mg BID IV Appreciate cardiology input and recommendation BMP remains stable with normal electrolytes and creatinine hovering around 2.06 Fluid intake below 1500 mL daily Medically stable and will be discharged home this afternoon LLE cellulitis improving continue Rocephin IV, plan to d/c on Cephalexin x 5 more days Continue monitor closely Will be discharged home this afternoon HTN Amlodipine decreased, Hydralazine added Blood pressure remains stable with current medications CKD 3 or 4 Nephrology on board for fluid diuretic management Remains stable DM type 2 Hgb 7.5 on 11/03 Continue to hold metformin Continue insulin sliding scale Continue monitor BS Hypothyroidism Continue Levothyroxine YOON BiPAP at bedtime Hyperlipidemia Continue statin Fajardo's esophagus Continue PPI Gout Continue allopurinol DVT prophylaxis SCD/TEDS -patient with history of life-threatening GI bleed on aspirin as well as warfarin, pt wishes to avoid chemical prophylaxis for now Encourage ambulation Code status Full code Disposition He will be discharged home this afternoon Total Time Total Time Spent Total Time Spent (In Minutes): 35 minutes Discharge Plan Discharge Items Patient Disposition: Home - Home Health Services Reason For Visit: ACUTE ON CHRONIC HFPEF Discharge Diagnosis: ACUTE ON CHRONIC CONGESTIVE HEART FAILURE Activity: As commented below Activity Comment: GRADUALLY TOLERATED Lifting: Wait until after follow-up appointment Exercise/Sports: Wait until after follow-up appointment Driving/Machine Use: NO DRIVING UNTIL RE-EVALUATED AND ALLOWED BY PRIMARY CARE PHYSICIAN Non-emergency contact: Primary Care Provider and [employer] Professional Call non-emergency contact if: you have any medication questions, your symptoms worsen, your pain is not controlled, your pain is worsening, your pain is unusual for you, your pain is concerning for you and you have a fever Follow-up/Referrals: Aki Alvarez MD [Primary Care Provider] - 12/23/20 11:00 am Diet: Heart Healthy Fluids: 1500ml (6 cups) Addtl Attending Provider Instructions: PLEASE REVIEW YOUR NEW MEDICATION LIST AND FOLLOW INSTRUCTIONS CAREFULLY. KEEP LASIX 80MG IN AM. LASIX CHANGED FROM 20MG IN PM TO 40MG AT PM. HYDRALAZINE 12.5MG TWICE A DAY ADDED. AMLODIPINE DECREASED FROM 10MG TO 5MG DAILY. CEPHALEXIN ADDED- ANTIBIOTIC FOR CELLULITIS. HOLD METFORMIN FOR NOW UNTIL FURTHER ADVICE BY PRIMARY CARE PHYSICIAN. USE OXYGEN 2 LITERS VIA NASAL CANNULA WHILE AMBULATING. CALL PRIMARY CARE PHYSICIAN OR RETURN TO THE ER IMMEDIATELY IF WITH WORSENING OF SYMPTOMS INCLUDING SHORTNESS OF BREATH, CHEST PAIN, WORSENING LEG SWELLING OR REDNESS. FOLLOW UP WITH PRIMARY CARE PHYSICIAN NEXT WEEK OUTLINED ABOVE. FOLLOW UP WITH PREFLIGHT MECHANIC SCHEDULED. Call your Primary Care doctor if any of the following symptoms or problems start or get worse: Shortness of breath or difficulty breathing Wake up at night short of breath Chest pain Cough Swelling of your hands, feet, or legs More fatigued or tired with your normal activity Palpitations - sudden fast heart beats WEIGHT Weigh yourself every morning after using the bathroom. Use the same scale. Wear the same amount of clothing. Write your weight down on a chart. Call your Primary Care doctor if you gain more than 2-3 pounds in 1-2 days. MEDICATIONS Use this discharge instruction sheet for medication instructions. Take your medications at the time your doctor ordered. Do not skip a dose of your medicines. If you miss a dose of medicine, take it as soon as possible, but DO NOT DOUBLE A DOSE. Read your medicine information when you get home. Know all of the side effects of your medicine. If in doubt, ask your pharmacist Call your Primary Care doctor's office if you have any side effects. Be sure all of your doctors know what medicine and herbs you take (including cold, flu, and herbal medicine). Take the following with you to your follow-up doctor appointments: Weight Chart Medication List List of questions Do not drink excessive alcohol, beer or wine. Who to Call and When: Call 911 or go to the Emergency Room if: If at any time you feel your situation is an emergency You have tightness or pain in your chest that does not go away with rest or Nitroglycerin You are very short of breath even with rest. Pending Studies at Discharge: No Stand-Alone Forms: My [facility], Smoking Cessation Medications and DC Order Prescriptions: New hydralazine 25 mg Tablet 12.5 mg PO BID Qty: 60 RF: 2 amlodipine [Norvasc] 5 mg Tablet 5 mg PO QAM Qty: 30 RF: 2 furosemide [Lasix] 40 mg tablet 40 mg PO QPM Qty: 30 RF: 0 cephalexin 500 mg capsule 500 mg PO QID 3 Days Qty: 12 RF: 0 Continued cyanocobalamin (vitamin B-12) [Vitamin B-12] 1,000 mcg Tablet 1,000 mcg PO QAM RF: 0 latanoprost [Xalatan] 0.005 % Drops 1 drp OPHTHALMIC (EYE) PM RF: 0 atorvastatin 80 mg Tablet 80 mg PO QPM RF: 0 carvedilol 25 mg Tablet 50 mg PO BID RF: 0 clonidine HCl 0.3 mg Tablet 0.3 mg PO BID RF: 0 tramadol 50 mg Tablet 50 mg PO BID RF: 0 furosemide 80 mg Tablet 80 mg PO QAM RF: 0 levothyroxine 50 mcg Tablet 50 mcg PO QAM RF: 0 ferrous sulfate 325 mg (65 mg iron) Tablet 325 mg PO QPM RF: 0 Novolin N NPH U-100 Insulin 100 unit/mL Suspension 25 unit SUBCUT BIDM RF: 0 allopurinol 300 mg Tablet 300 mg PO QAM RF: 0 omeprazole 20 mg Tablet,Delayed Release (Dr/Ec) 20 mg PO QAM RF: 0 cholecalciferol (vitamin D3) 2,000 unit Tablet 2,000 unit PO QAM RF: 0 magnesium oxide 400 mg magnesium Tablet 400 mg PO QAM RF: 0 Discontinued amlodipine 10 mg Tablet 10 mg PO QAM RF: 0 metformin 500 mg Tablet 500 mg PO BIDM RF: 0 furosemide 20 mg Tablet 20 mg PO QPM RF: 0 Discharge Orders: Discharge Order (Routine); Ordered 12/20/20 Ordered By: Efra Smith Admission Data Admit Date/Time: 12/15/20 11:21 Attending Provider: Efra Smith Admit Provider: Efra Smith Primary Care Provider: Aki Alvarez Other Providers: Michael Heath ; Efra Smith ; Qamar Park ; Ananda Lott Other Interventions: Discharge Summary Assessment (RN) Last Done: 12/20/20 14:20
== END 2020-12-20 15:30 | disposition home or self-care (01) | DRG 291 ==
LOC: ED 08:04 → 2S 11:21 → SUATTDRO 11:21 → 2S 16:40
DX: Z79.891 Long term (current) use of opiate analgesic; I13.0 Hypertensive heart and chronic kidney disease with heart failure and stage 1 through stage 4 chronic kidney disease, or unspecified chronic kidney disease; D50.9 Iron deficiency anemia, unspecified; Z79.4 Long term (current) use of insulin; K22.70 Barrett's esophagus without dysplasia; D51.9 Vitamin B12 deficiency anemia, unspecified; E11.22 Type 2 diabetes mellitus with diabetic chronic kidney disease; G47.33 Obstructive sleep apnea (adult) (pediatric); Z79.890 Hormone replacement therapy; E03.9 Hypothyroidism, unspecified; I50.33 Acute on chronic diastolic (congestive) heart failure; Z99.81 Dependence on supplemental oxygen; D63.1 Anemia in chronic kidney disease; N18.4 Chronic kidney disease, stage 4 (severe); Z82.49 Family history of ischemic heart disease and other diseases of the circulatory system; E11.40 Type 2 diabetes mellitus with diabetic neuropathy, unspecified; M10.9 Gout, unspecified; H40.9 Unspecified glaucoma; Z88.6 Allergy status to analgesic agent; L03.116 Cellulitis of left lower limb; Z95.4 Presence of other heart-valve replacement; Z83.3 Family history of diabetes mellitus; N40.0 Benign prostatic hyperplasia without lower urinary tract symptoms; Z87.891 Personal history of nicotine dependence; Z79.899 Other long term (current) drug therapy; E78.5 Hyperlipidemia, unspecified; Z88.8 Allergy status to other drugs, medicaments and biological substances; K21.9 Gastro-esophageal reflux disease without esophagitis

== ENCOUNTER 2021-12-23 11:38 | Observation (INO) ==
[2021-12-23 12:20] LABS: Basophils # (auto) 0.05 K/uL (0-0.2); Basophils % (auto) 0.5 %; Eosinophils # (auto) 0.16 K/uL (0-0.50); Eosinophils % (auto) 1.6 %; Hematocrit (blood only) 36.5 % (40.1-51.0); Hemoglobin 11.7 g/dl (14.0-18.0); Immature Granulocytes # (auto) 0.06 K/uL (0.00-0.02); Immature Granulocytes % (auto) 0.6 %; Lymphocytes # (auto) 1.31 K/uL (1.2-3.4); Lymphocytes % (auto) 13.4 %; Mean Corpuscular Hemoglobin 28.5 pg (25.0-34.0); Mean Corpuscular Hgb Conc 32.1 g/dL (32.0-36.0); Mean Corpuscular Volume 88.8 fL (80.0-100.0); Mean Platelet Volume 10.4 fL (9.4-12.4); Monocytes # (auto) 0.53 K/uL (0.24-0.82); Monocytes % (auto) 5.4 %; Neutrophils # (auto) 7.69 K/uL (1.4-6.5); Neutrophils % (auto) 78.5 %; Platelet Count 215 K/uL (130-400); RDW Coefficient of Variation 15.2 % (11.5-14.5); RDW Standard Deviation 49.3 fL (36.4-46.3); Red Blood Count 4.11 M/uL (4.63-6.08)
[2021-12-23 12:37] LABS: INR 1.1 (0.9-1.1); Partial Thromboplastin Ratio 0.9; Partial Thromboplastin Time 25.7 Seconds (21.0-31.0); Prothrombin Time 11.2 Seconds (9.0-12.0)
[2021-12-23 12:45] LABS: Albumin Globulin Ratio 1.2 (0.9-2); Albumin Level 3.8 gm/dl (3.4-5.0); BUN Creatinine Ratio 17.5 (10-20); Bilirubin,Total 0.5 mg/dl (0.2-1.0); Calcium 8.8 mg/dl (8.5-10.1); Creatinine Clr Calc Pharmacy 50.4 ml/min; Est GFR (African American) 50.4 ml/min; Est GFR (Non-African American) 43.5 ml/min; Globulin 3.2 gm/dl (2.5-4.0); Potassium 4.3 mmol/L (3.5-5.1)
[2021-12-23 12:49] LABS: Troponin I High Sensitivity 20.1 pg/ml (0-20)
--- NOTE | 2021-12-23 13:08 | XRay Report ---
XR chest 1V portable HISTORY: 76 years-old Male dizziness acute dizziness COMPARISON: Chest radiograph 12/15/2020 TECHNIQUE: Portable AP view of the chest FINDINGS: Cardiac silhouette is enlarged. Prior median sternotomy. Atherosclerosis of the aorta. Mild right hem idiaphragmatic elevation. No pneumothorax, pleural effusion, airspace consolidation or overt pulmonar y edema. Bones appear grossly intact. IMPRESSION: No acute process. ACT 112: Negative or not required by law. The above report was generated using voice recognition software. It may contain grammatical, syntax o r spelling errors. Electronically signed by: Priyank Guadarrama M.D. 12/23/2021 1:07 PM
--- NOTE | 2021-12-23 13:23 | CT Scan Report ---
CT head/brain wo con CLINICAL HISTORY: 76 years-old Male with dizziness/confusion. Acute dizziness with altered mental st atus TECHNIQUE: Multiple axial CT images of the head were obtained without contrast. A dose lowering tech nique was utilized adhering to the principles of ALARA. CT DOSE: 614.27 mGy.cm COMPARISON: None. FINDINGS: No acute intracranial hemorrhage, midline shift, intracranial mass, hydrocephalus, territorial ischem ia or abnormal extra-axial collection. Age-related involutional changes. White matter hypodensities s uggest chronic microvascular ischemic disease. Study is motion degraded. Extensive calcifications are noted within the distal internal carotid and vertebral arteries. The calvarium is intact. Prior bilateral lens repair. The paranasal sinuses, mastoid air cells, and m iddle ear cavities are clear. IMPRESSION: No acute intracranial abnormality. ACT 112: Negative or not required by law. The above report was generated using voice recognition software. It may contain grammatical, syntax o r spelling errors. Electronically signed by: Priyank Guadarrama M.D. 12/23/2021 1:21 PM
--- NOTE | 2021-12-23 13:59 | History & Physical Report ---
Date of Service December 23, 2021 Assessment & Plan (1) Stroke-like symptom: Plan: Patient is 76-year-old male with PMH chronic diastolic heart failure, history of first-degree AV block, Mobitz 1, history aortic valve replacement, HTN, dyslipidemia, DM II, hypothyroidism CKD III, hypothyroidism, Fajardo's esophagus, YOON on BiPAP, chronic iron deficiency anemia, gout presented to ER with complaint of "dizziness" which he describes as inability to concentrate and unable to form thoughts that lasted approx 45 minutes. In ER vitals stable. patient asymptomatic. BSG 228. CT head negative. No significant electrolyte abnormality. DDX: TIA vs arrhythmia. Less likely hypoglycemia as BSG in ER is 228 and patient ate breakfast -Tele to monitor for arrhythmias -EKG in am -troponin -lipid panel, A1c, TSH in am -MRI brain -U/S carotids -echo with bubble study -aspiration precautions -PT/OT consult -continue statin -Patient denies aspirin currently. He reports history severe GI bleed in past on aspirin, warfarin -neurology consult (2) Elevated troponin: Plan: High sensitivity troponin: 20. EKG: t wave inversions lateral leads. T wave inversions noted on EKG years ago that had since improved on most recent ekg Denies CP, SOB -Repeat EKG in am -Will trend troponin -Echo -lipid panel in am, continue statin -continue carvedilol -patient not on aspirin as history severe GI bleed in past -If increasing troponins or develops CP consider cardiology consult (3) Chronic diastolic heart failure: Plan: Appears euvolemic -Continue home Lasix (4) H/O aortic valve repair: Plan: History aortic valve replacement 2009 (5) History of first degree AV block: Plan: History Mobitz 1 -Monitor on telemetry (6) Hypertension: Plan: - Continue carvedilol, clonidine, losartan (7) Hyperlipidemia: Plan: - Continue atorvastatin (8) DM2 (diabetes mellitus, type 2): Plan: A1c: 8.8 on 07/17/2021 -Hold home glycemic agents -Basal bolus insulin per protocol (9) Chronic kidney disease, stage 3: Plan: Cr:: 1.5. Baseline 1.4-1.7 -Monitor renal functions, avoid nephrotoxic agents when possible (10) YOON treated with BiPAP: Plan: - BiPAP at bedtime (11) Fajardo esophagus: Plan: - Continue PPI (12) Chronic iron deficiency anemia: Plan: HPI: 11.7. Baseline Hgb in 10's -Monitor H&H -Continue iron supplement, B12 supplement (13) Gout: Plan: - Continue allopurinol DVT Prophylaxis -SCDs. Patient denies chemical VTE prophylaxis at this time secondary to history GI bleed Full Code as per discussion with pt Follows with Dr Alvarez. for routine care Pt was seen and care coordinated with Dr Lott. See addendum History of Present Illness Chief Complaint: Dizziness Primary Care Provider: Aki Alvarez MD Patient is 76-year-old male with PMH chronic diastolic heart failure, history of first-degree AV block, Mobitz 1, history aortic valve replacement, HTN, dyslipidemia, DM II, hypothyroidism CKD III, hypothyroidism, Fajardo's esophagus, YOON on BiPAP, chronic iron deficiency anemia, gout presented to ER with complaint of "dizziness". Patient reports ate breakfast at [facility] today and afterward went to [place] and walked around for 30-45 minutes. When he was walking to the car he reports he had any episode of "dizziness" which patient describes as not being able to concentrate, having trouble forming his thoughts. Patient denies any lightheadedness or vertigo type symptoms. He reports the symptoms lasted approximately 45 minutes and self resolved. His is concerned so patient presented to ER today. Denies any headache, vision changes, noted slurred speech, facial drooping, extremity weakness or paresthesias. Patient denies any chest pain, shortness of breath, palpitations. He denies any similar episodes of symptoms in past. Denies fever/chills, diaphoresis, N/V/D/C, syncope, fall, vision changes, neck pain, CP, SOB, orthopnea, cough, sore throat, choking, otalgia, rhinorrhea, abdominal pain, increased extremity edema, rashes, urinary symptoms. In ER patient asymptomatic. BSG 228. CT head negative. Allergies Allergy/AdvReac Type Severity Reaction Status Date / Time aspirin AdvReac Severe gi bleed Verified 12/23/21 15:26 warfarin AdvReac Severe "bleeding Verified 12/23/21 15:26 with anticoagulants" Home Medications Medication Instructions Recorded Confirmed Type allopurinol 300 mg tablet 300 mg PO QAM 09/06/18 12/23/21 History atorvastatin 80 mg tablet 80 mg PO QPM 09/06/18 12/23/21 History carvedilol 25 mg tablet 50 mg PO BID 09/06/18 12/23/21 History cholecalciferol (vitamin D3) 50 2,000 unit PO QAM 09/06/18 12/23/21 History mcg (2,000 unit) tablet clonidine HCl 0.3 mg tablet 0.3 mg PO BID 09/06/18 12/23/21 History cyanocobalamin (vitamin B-12) 1,000 mcg PO QAM 09/06/18 12/23/21 History 1,000 mcg tablet (Vitamin B-12) ferrous sulfate 325 mg (65 mg 325 mg PO QPM 09/06/18 12/23/21 History iron) tablet furosemide 80 mg tablet 80 mg PO QAM 09/06/18 12/23/21 History latanoprost 0.005 % eye drops 1 drp OPB PM 09/06/18 12/23/21 History (Xalatan) levothyroxine 50 mcg tablet 50 mcg PO QAM 09/06/18 12/23/21 History magnesium oxide 400 mg PO QAM 09/06/18 12/23/21 History omeprazole 20 mg tablet,delayed 20 mg PO QAM 09/06/18 12/23/21 History release furosemide 40 mg tablet (Lasix) 40 mg PO QPM #30 tabs 12/20/20 12/23/21 Rx insulin degludec 100 unit/mL (3 45 unit subcut HS 12/23/21 12/23/21 History mL) subcutaneous pen (Tresiba FlexTouch U-100 insulin) losartan 25 mg tablet 25 mg PO DAILY 12/23/21 12/23/21 History metformin 500 mg tablet 500 mg PO BID 12/23/21 12/23/21 History semaglutide 0.25 mg or 0.5 mg (2 0.5 mg subcut WK 12/23/21 12/23/21 History mg/1.5 mL) subcutaneous pen injector (Ozempic) Past Med/Surg History Medical History (Updated 12/23/21 @ 16:12 by Martine Rodney PA-C) Barretts esophagus Cardiac murmur Chronic diastolic heart failure Chronic iron deficiency anemia Chronic kidney disease, stage 3 Colon polyps Degenerative disc disease Diabetes mellitus, type 2 GERD (gastroesophageal reflux disease) GI bleed 2009 d/t coumadin use Glaucoma of both eyes Gout Hearing deficit History of first degree AV block Hyperlipidemia Hypertension Hypothyroidism On home oxygen therapy 2.5L at night Osteoarthritis Sleep apnea bipap with 2.5L oxygen Surgical History History of aortic valve replacement 2009 @ [facility] [place] History of appendectomy History of arthroscopy of left knee x2 History of arthroscopy of right knee History of bilateral cataract extraction History of cardiac cath 2009 @ [facility] no stents History of colonoscopy History of esophagogastroduodenoscopy (EGD) History of tooth extraction all upper teeth, most of lower teeth History of total left knee replacement (TKR) History of total right knee replacement (TKR) Family History Mother Family history of diabetes mellitus Colorectal cancer Heart disease Myocardial infarction Other No family history of adverse response to anesthesia Social History Smoking Status: Unknown if ever smoked packs per day: 1; Years Smoked: 30; Cigarettes Per Day: 20; Second Hand Exposure: Yes; Hx Alcohol Use: No Hx Substance Use: No Preferred Language: Malian Communication Ability: Effective Psychological Tests Sales Agent Required: No Beliefs That Will Affect Care: Muslim marital status: Current Living Situation: Spouse How many Children do You have: 3 Feels Safe at Home: Yes Assistive Devices: Oxygen - Continuous Review of Systems Review of Systems: All systems reviewed & are unremarkable except as noted in HPI & below Physical Exam Physical Exam: General: no distress, WDWN Head: normocephalic, atraumatic Eyes: PERRL, EOM's intact, conjunctiva non-injected, anicteric ENT: normal inspection external ears, nose, mucous membranes moist Neck: supple, trachea midline Lungs: clear, no respiratory distress, no wheezing/rhonchi/rales CV: RRR, no murmur, 1+ pretibial edema Abd: normal BS, soft, non-tender Ext: no cyanosis, no calf tenderness Neuro: A&O x 3, no focal deficits noted, normal affect Skin: warm, dry Results & Data Results & Data ([facility]) Vital Signs (Past 12 Hours) Vital Signs Temp Pulse Resp BP Pulse Ox O2 Del Method 12/23/21 11:49 36.9 C 53 L 16 146/74 H 92 Room Air Laboratory Results Short CBC 12/23/21 Range/Units 12:10 WBC 9.80 (4.8-10.8) K/ul Hgb 11.7 L (14.0-18.0) g/dl Hct 36.5 L (40.1-51.0) % Plt Count 215 (130-400) K/uL BMP 12/23/21 12:10 Sodium 137 Potassium 4.3 Chloride 101 Carbon Dioxide 28 BUN 27 H Creatinine 1.54 H Glucose 228 H Calcium 8.8 Liver Function 12/23/21 Range/Units 12:10 Total Bilirubin 0.5 (0.2-1.0) mg/dl AST 16 (13-39) U/L ALT 18 (7-52) U/L Alkaline Phosphatase 130 H (34-104) U/L Albumin 3.8 (3.4-5.0) gm/dl Urine 12/23/21 Range/Units 13:42 Urine Color Yellow Urine Appearance Clear (Clear) Urine pH 5.5 (4.5-7.5) Ur Specific [place] 1.010 (1.000-1.030) Urine Protein 1+ H (Negative) Urine Glucose (UA) Negative (Negative) Diagnostic Findings Chest X-Ray 12/23/21 11:52 XR chest 1V portable HISTORY: 76 years-old Male dizziness acute dizziness COMPARISON: Chest radiograph 12/15/2020 TECHNIQUE: Portable AP view of the chest FINDINGS: Cardiac silhouette is enlarged. Prior median sternotomy. Atherosclerosis of the aorta. Mild right hemidiaphragmatic elevation. No pneumothorax, pleural effusion, airspace consolidation or overt pulmonary edema. Bones appear grossly intact. IMPRESSION: No acute process. ACT 112: Negative or not required by law. The above report was generated using voice recognition software. It may contain grammatical, syntax or spelling errors. Electronically signed by: Priyank Guadarrama M.D. 12/23/2021 1:[address] 12/23/21 11:53 CT head/brain wo con CLINICAL HISTORY: 76 years-old Male with dizziness/confusion. Acute dizziness with altered mental status TECHNIQUE: Multiple axial CT images of the head were obtained without contrast. A dose lowering technique was utilized adhering to the principles of ALARA. CT DOSE: 614.27 mGy.cm COMPARISON: None. FINDINGS: No acute intracranial hemorrhage, midline shift, intracranial mass, hydrocephalus, territorial ischemia or abnormal extra-axial collection. Age- related involutional changes. White matter hypodensities suggest chronic microvascular ischemic disease. Study is motion degraded. Extensive calcifications are noted within the distal internal carotid and vertebral arteries. The calvarium is intact. Prior bilateral lens repair. The paranasal sinuses, mas toid air cells, and middle ear cavities are clear. IMPRESSION: No acute intracranial abnormality. ACT 112: Negative or not required by law. The above report was generated using voice recognition software. It may contain grammatical, syntax or spelling errors. Electronically signed by: Priyank Guadarrama M.D. 12/23/2021 1:21 PM ECG Rhythm: sinus rhythm Findings: + 1st degree AV block, + PVC and + T-wave inversion (lateral leads) Code Status & VTE Plan VTE Prophylaxis Plan VTE Prophylaxis will be ordered: Yes Supervising Physician Co-Signing Physician Notes Attending Addendum: care coordinated with GAETANO Husain please refer to her notes for full details, I agree with her notes patient seen and examined, records reviewed by myself as well on exam, patient seen resting in bed, comfortable, sitting states he feels much better overall denies confusion, weakness, numbness or any other focal neuro symptoms no other symptoms ASSESSMENT AND PLAN> EPISODE OF CONFUSION POSSIBLE TIA Brain MRI Neurologist consulted other diagnoses and plan of care as per GAETANO Husain notes Ananda Lott MD
[2021-12-23 14:16] LABS: Appearance Urine Clear (Clear); Bacteria Urine Automated Negative (Negative); Bilirubin Urine Negative (Negative); Blood Urine Negative (Negative); Color Urine Yellow; Glucose Urine UA Negative (Negative); Ketones Urine Negative (Negative); Leukocyte Esterase Urine Negative (Negative); Nitrite Urine Negative (Negative); Protein Urine 1+ (Negative); RBC Urine Automated 0-4 /hpf (0-4); Urobilinogen Urine Negative (Negative); pH Urine 5.5 (4.5-7.5)
--- NOTE | 2021-12-23 15:47 | Emergency Department Note ---
Impression & Plan Elevated troponin, Abnormal ECG, Lightheadedness, Hyperglycemia ED Provider Note INFORMANT: Patient and ED PROVIDER(S): Jose Ledesma MD CHIEF COMPLAINT: Dizziness PLAN: Disposition: Admitted Condition: Good Outpatient prescription management: none Referral: None MEDICAL DECISION MAKING: Patient presented because of an episode of dizziness. Work-up was initiated. Head CT was negative. ECG showed a sinus rhythm with first-degree block. The patient also had some lateral T wave inversions. Patient's troponin was borderline elevated. Chemistry panel shows mild dehydration and CBC showed a mild anemia. The patient's symptoms combined with his abnormal ECG and elevated troponin are concerning for possible cardiac etiology. Further management and evaluation will be necessary in the hospital. [facility] Patient was evaluated in the ER and admitted for further management. Triage Nursing notes reviewed and agree them. Vital Signs: reviewed and remarkable for no significant abnormalities Differential diagnosis: Benign positional vertigo, dehydration, hypovolemia, anemia, tumor, infection, hypoglycemia, electrolyte abnormalities, cardiac sources, intracerebral event, toxicologic, neurologic, as well as other pathologies. Diagnostics interpreted by me: ECG: Twelve-lead ECG reveals a sinus rhythm with first-degree block and PVCs. There are lateral T wave inversions. No ST elevation or depression. Cardiac Monitoring: Cardiac monitoring ordered by me: The patient was placed on continuous cardiac monitoring and observed. It revealed a sinus rhythm at 79 beats per minute without ectopy or evidence of dysrhythmia. Imaging studies: Head CT: A noncontrast CT scan of the head was performed and was negative for tumor, fracture, intracranial hemorrhage, or other acute pathology. Chest x-ray. Findings: A chest x-ray was performed and revealed no pneumothorax, effusion, infiltrate, pulmonary edema, free air under the diaphragm, or wide mediastinum. Impression: No acute disease. HPI: The patient is a 76year old male who presents to the Emergency Room with complaints of transient lightheadedness. This started this morning and is now resolved. The patient also notes the following associated symptoms, mild confusion, dizziness. The patient has taken no medication for relieving factors. Current pain is rated as 0/10. notes when they were shopping that he seemed a little bit off. She notes that he is back to baseline at this point. Pt denies LOC, headache, fevers, chills, diaphoresis, visual changes, neck pain, chest pain, breathing difficulties, nausea, vomiting, abdominal pain, back pain, melena, hematochezia, urinary symptoms, numbness, weakness, lymphadenopathy, rash, or other complaints. ROS: See above HPI for pertinent positives & negatives. A total of 10 systems r eviewed and were otherwise negative. PAST MEDICAL HISTORY:See Below , CHF PAST SURGICAL HISTORY:See Below, AVR FAMILY HISTORY:See Below SOCIAL HISTORY:See Below, HOME MEDICATIONS:See Below ALLERGIES:See Below VITALS:See Below PHYSICAL EXAMINATION: GENERAL: Awake, alert, well-appearing, in no distress HENT: Normocephalic, atraumatic. Oropharynx unremarkable. EYES: Normal conjunctiva. Sclera non-icteric. PERRLA. EOMI. NECK: Inspection normal. Non-tender. Supple. No nuchal rigidity. FROM. No masses. RESPIRATORY: Clear to auscultation. No wheezes. No rales. Normal respiratory effort. CARDIAC: Normal rate. Normal rhythm. Systolic ejection murmur present. No ru bs. Extremities warm and well perfused. Pulses equal. No JVD. GI: Soft, non-distended. No tenderness to palpation. No rebound or guarding. No masses. RECTAL: Deferred. MUSCULOSKELETAL: Atraumatic. Chest examination reveals no tenderness. The back is symmetrical on inspection without obvious abnormality. There is no CVA tenderness to palpation. No joint edema. LOWER EXTREMITIES: Calves are equal size bilaterally and non-tender. Trace edema. No discoloration. NEURO: Normal sensorium. No sensory or motor deficits noted. Cranial nerves II through XII intact. Speech normal. SKIN: No rash or jaundice noted. Jose Ledesma MD Past Med/Surg History Medical History (Updated 12/23/21 @ 16:12 by Martine Rodney PA-C) Barretts esophagus Cardiac murmur Chronic diastolic heart failure Chronic iron deficiency anemia Chronic kidney disease, stage 3 Colon polyps Degenerative disc disease Diabetes mellitus, type 2 GERD (gastroesophageal reflux disease) GI bleed 2009 d/t coumadin use Glaucoma of both eyes Gout Hearing deficit History of first degree AV block Hyperlipidemia Hypertension Hypothyroidism On home oxygen therapy 2.5L at night Osteoarthritis Sleep apnea bipap with 2.5L oxygen Surgical History History of aortic valve replacement 2009 @ [facility] [place] History of appendectomy History of arthroscopy of left knee x2 History of arthroscopy of right knee History of bilateral cataract extraction History of cardiac cath 2009 @ [facility] no stents History of colonoscopy History of esophagogastroduodenoscopy (EGD) History of tooth extraction all upper teeth, most of lower teeth History of total left knee replacement (TKR) History of total right knee replacement (TKR) Family History Mother Family history of diabetes mellitus Colorectal cancer Heart disease Myocardial infarction Other No family history of adverse response to anesthesia Social History Smoking Status: Unknown if ever smoked packs per day: 1; Years Smoked: 30; Cigarettes Per Day: 20; Second Hand Exposure: Yes; Hx Alcohol Use: No Hx Substance Use: No Preferred Language: Bengali Communication Ability: Effective 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 Beliefs That Will Affect Care: Worship marital status: Current Living Situation: Spouse How many Children do You have: 3 Feels Safe at Home: Yes Assistive Devices: Oxygen - Continuous Allergies Allergies Allergy/AdvReac Type Severity Reaction Status Date / Time aspirin AdvReac Severe gi bleed Verified 12/23/21 15:26 warfarin AdvReac Severe "bleeding Verified 12/23/21 15:26 with anticoagulants" Home Meds Home Medications Medication Instructions Recorded Confirmed allopurinol 300 mg tablet 300 mg PO QAM 09/06/18 12/23/21 atorvastatin 80 mg tablet 80 mg PO QPM 09/06/18 12/23/21 carvedilol 25 mg tablet 50 mg PO BID 09/06/18 12/23/21 cholecalciferol (vitamin D3) 50 2,000 unit PO QAM 09/06/18 12/23/21 mcg (2,000 unit) tablet clonidine HCl 0.3 mg tablet 0.3 mg PO BID 09/06/18 12/23/21 cyanocobalamin (vitamin B-12) 1,000 mcg PO QAM 09/06/18 12/23/21 1,000 mcg tablet (Vitamin B-12) ferrous sulfate 325 mg (65 mg 325 mg PO QPM 09/06/18 12/23/21 iron) tablet furosemide 80 mg tablet 80 mg PO QAM 09/06/18 12/23/21 latanoprost 0.005 % eye drops 1 drp OPB PM 09/06/18 12/23/21 (Xalatan) levothyroxine 50 mcg tablet 50 mcg PO QAM 09/06/18 12/23/21 magnesium oxide 400 mg PO QAM 09/06/18 12/23/21 omeprazole 20 mg tablet,delayed 20 mg PO QAM 09/06/18 12/23/21 release insulin degludec 100 unit/mL (3 45 unit subcut HS 12/23/21 12/23/21 mL) subcutaneous pen (Tresiba FlexTouch U-100 insulin) losartan 25 mg tablet 25 mg PO DAILY 12/23/21 12/23/21 metformin 500 mg tablet 500 mg PO BID 12/23/21 12/23/21 semaglutide 0.25 mg or 0.5 mg (2 0.5 mg subcut WK 12/23/21 12/23/21 mg/1.5 mL) subcutaneous pen injector (Ozempic) Previous Rx's Medication Instructions Recorded furosemide 40 mg tablet (Lasix) 40 mg PO QPM #30 tabs 12/20/20 Results & Data (ED) Vital Signs Vital Signs - 24 hr 12/23/21 11:49 Temperature 36.9 C Temperature Source Temporal Artery Scan Pulse Rate 53 L Respiratory Rate 16 Respiratory Effort / Characteristics Non-Labored Spontaneous Respiratory Depth Normal Blood Pressure 146/74 H Blood Pressure Mean 98 Pulse Oximetry 92 Oxygen Delivery Method Room Air Sepsis Recent Fever Within 48 Hours No Sepsis New/Unexplained Change in Mental Status N/A Sepsis Action Taken by Nursing No Action Required Laboratory Data Result diagrams: 12/23/21 12:10 12/23/21 12:10 Lab Results 12/23/21 12/23/21 12/23/21 Range/Units 12:10 12:10 12:10 WBC 9.80 (4.8-10.8) K/ul RBC 4.11 L (4.63-6.08) M/uL Hgb 11.7 L (14.0-18.0) g/dl Hct 36.5 L (40.1-51.0) % MCV 88.8 (80.0-100.0) fL MCH 28.5 (25.0-34.0) pg MCHC 32.1 (32.0-36.0) g/dL RDW Std Deviation 49.3 H (36.4-46.3) fL RDW Coeff of Ilana 15.2 H (11.5-14.5) % Plt Count 215 (130-400) K/uL MPV 10.4 (9.4-12.4) fL Immature Gran % (Auto) 0.6 % Neut % (Auto) 78.5 % Lymph % (Auto) 13.4 % [place] % (Auto) 5.4 % Eos % (Auto) 1.6 % Baso % (Auto) 0.5 % Neut # (Auto) 7.69 H (1.4-6.5) K/uL Lymph # (Auto) 1.31 (1.2-3.4) K/uL [place] # (Auto) 0.53 (0.24-0.82) K/uL Eos # (Auto) 0.16 (0-0.50) K/uL Baso # (Auto) 0.05 (0-0.2) K/uL Immature Gran # (Auto) 0.06 H (0.00-0.02) K/uL PT 11.2 (9.0-12.0) Seconds INR 1.1 (0.9-1.1) APTT 25.7 (21.0-31.0) Seconds PTT Ratio 0.9 Sodium 137 (136-145) mmol/L Potassium 4.3 (3.5-5.1) mmol/L Chloride 101 (98-107) mmol/L Carbon Dioxide 28 (21-32) mmol/L Anion Gap 8 (3-11) BUN 27 H (6-23) mg/dl Creatinine 1.54 H (0.6-1.4) mg/dl Est Cr Clr Drug Dosing 50.4 ml/min Est GFR ( Amer) 50.4 ml/min Est GFR (Non-Af Amer) 43.5 ml/min BUN/Creatinine Ratio 17.5 (10-20) Glucose 228 H (70-99(Fasting)) mg/dl Calcium 8.8 (8.5-10.1) mg/dl Total Bilirubin 0.5 (0.2-1.0) mg/dl AST 16 (13-39) U/L ALT 18 (7-52) U/L Alkaline Phosphatase 130 H (34-104) U/L Troponin I High Sens 20.1 H (0-20) pg/ml Total Protein 7.0 (6.0-8.3) gm/dl Albumin 3.8 (3.4-5.0) gm/dl Globulin 3.2 (2.5-4.0) gm/dl Albumin/Globulin Ratio 1.2 (0.9-2) Urine Color Urine Appearance (Clear) Urine pH (4.5-7.5) Ur Specific [place] (1.000-1.030) Urine Protein (Negative) Urine Glucose (UA) (Negative) Urine Ketones (Negative) Urine Blood (Negative) Urine Nitrite (Negative) Urine Bilirubin (Negative) Urine Urobilinogen (Negative) Ur Leukocyte Esterase (Negative) Urine WBC (Auto) (0-5) /hpf Urine RBC (Auto) (0-4) /hpf U Hyaline Cast (Auto) (0-5) /lpf U Epithel Cells (Auto) (0-5) /lpf Urine Bacteria (Auto) (Negative) SARS-CoV-2, RNA, NAAT (NEGATIVE) 12/23/21 12/23/21 Range/Units 13:37 13:42 WBC (4.8-10.8) K/ul RBC (4.63-6.08) M/uL Hgb (14.0-18.0) g/dl Hct (40.1-51.0) % MCV (80.0-100.0) fL MCH (25.0-34.0) pg MCHC (32.0-36.0) g/dL RDW Std Deviation (36.4-46.3) fL RDW Coeff of Ilana (11.5-14.5) % Plt Count (130-400) K/uL MPV (9.4-12.4) fL Immature Gran % (Auto) % Neut % (Auto) % Lymph % (Auto) % [place] % (Auto) % Eos % (Auto) % Baso % (Auto) % Neut # (Auto) (1.4-6.5) K/uL Lymph # (Auto) (1.2-3.4) K/uL [place] # (Auto) (0.24-0.82) K/uL Eos # (Auto) (0-0.50) K/uL Baso # (Auto) (0-0.2) K/uL Immature Gran # (Auto) (0.00-0.02) K/uL PT (9.0-12.0) Seconds INR (0.9-1.1) APTT (21.0-31.0) Seconds PTT Ratio Sodium (136-145) mmol/L Potassium (3.5-5.1) mmol/L Chloride (98-107) mmol/L Carbon Dioxide (21-32) mmol/L Anion Gap (3-11) BUN (6-23) mg/dl Creatinine (0.6-1.4) mg/dl Est Cr Clr Drug Dosing ml/min Est GFR ( Amer) ml/min Est GFR (Non-Af Amer) ml/min BUN/Creatinine Ratio (10-20) Glucose (70-99(Fasting)) mg/dl Calcium (8.5-10.1) mg/dl Total Bilirubin (0.2-1.0) mg/dl AST (13-39) U/L ALT (7-52) U/L Alkaline Phosphatase (34-104) U/L Troponin I High Sens (0-20) pg/ml Total Protein (6.0-8.3) gm/dl Albumin (3.4-5.0) gm/dl Globulin (2.5-4.0) gm/dl Albumin/Globulin Ratio (0.9-2) Urine Color Yellow Urine Appearance Clear (Clear) Urine pH 5.5 (4.5-7.5) Ur Specific [place] 1.010 (1.000-1.030) Urine Protein 1+ H (Negative) Urine Glucose (UA) Negative (Negative) Urine Ketones Negative (Negative) Urine Blood Negative (Negative) Urine Nitrite Negative (Negative) Urine Bilirubin Negative (Negative) Urine Urobilinogen Negative (Negative) Ur Leukocyte Esterase Negative (Negative) Urine WBC (Auto) 1-5 (0-5) /hpf Urine RBC (Auto) 0-4 (0-4) /hpf U Hyaline Cast (Auto) 1-5 (0-5) /lpf U Epithel Cells (Auto) 5-10 H (0-5) /lpf Urine Bacteria (Auto) Negative (Negative) SARS-CoV-2, RNA, NAAT NEGATIVE (NEGATIVE) Administered Medications Insulin Aspart (Insulin Aspart Per Unit) 0 units SC ACHS MARYLOU Stop: 01/22/22 18:04 Last Admin: 12/23/21 19:22 Dose: 8 units Documented By: AP Co-signed By: ASW Discontinued Medications Furosemide (Furosemide 40 Mg Tab) 40 mg PO NOW ONE Stop: 12/23/21 18:06 Last Admin: 12/23/21 19:28 Dose: 40 mg Documented By: AP Imaging Data Radiologist's Impression: Chest X-Ray 12/23/21 11:52 XR chest 1V portable HISTORY: 76 years-old Male dizziness acute dizziness COMPARISON: Chest radiograph 12/15/2020 TECHNIQUE: Portable AP view of the chest FINDINGS: Cardiac silhouette is enlarged. Prior median sternotomy. Atherosclerosis of the aorta. Mild right hemidiaphragmatic elevation. No pneumothorax, pleural effusion, airspace consolidation or overt pulmonary edema. Bones appear grossly intact. IMPRESSION: No acute process. ACT 112: Negative or not required by law. The above report was generated using voice recognition software. It may contain grammatical, syntax or spelling errors. Electronically signed by: Priyank Guadarrama M.D. 12/23/2021 1:[address] 12/23/21 11:53 CT head/brain wo con CLINICAL HISTORY: 76 years-old Male with dizziness/confusion. Acute dizziness with altered mental status TECHNIQUE: Multiple axial CT images of the head were obtained without contrast. A dose lowering technique was utilized adhering to the principles of ALARA. CT DOSE: 614.27 mGy.cm COMPARISON: None. FINDINGS: No acute intracranial hemorrhage, midline shift, intracranial mass, hydrocephalus, territorial ischemia or abnormal extra-axial collection. Age-r elated involutional changes. White matter hypodensities suggest chronic microvascular ischemic disease. Study is motion degraded. Extensive calcifications are noted within the distal internal carotid and vertebral arteries. The calvarium is intact. Prior bilateral lens repair. The paranasal sinuses, mastoid air cells, and middle ear cavities are clear. IMPRESSION: No acute intracranial abnormality. ACT 112: Negative or not required by law. The above report was generated using voice recognition software. It may contain grammatical, syntax or spelling errors. Electronically signed by: Priyank Guadarrama M.D. 12/23/2021 1:21 PM Discharge Plan Visit Data Chief Complaint: Vertigo Stated Complaint: DIZZY ED Provider: Jose Ledesma Discharge Problem: Elevated troponin, Abnormal ECG, Lightheadedness, Hyperglycemia Discharge Instructions Interventions: ED Discharge Assessment Last Done: 12/23/21 17:44
--- NOTE | 2021-12-23 17:25 | Magnetic Resonance Report ---
MR brain wo con HISTORY: 76 years-old Male TIA symptoms acute strokelike symptoms COMPARISON: Head CT of same day TECHNIQUE: Multiplanar multisequence MRI of the brain was obtained without the IV contrast FINDINGS: No restricted diffusion to suggest acute or subacute infarct. Midline structures appear unremarkable. Degenerative changes of the imaged cervical spine. No acute intracranial hemorrhage, midline shift, abnormal extra axial collection, hydrocephalus or intracranial mass. Age-related involutional changes . Moderate T2/FLAIR hyperintense foci are noted throughout the white matter. There is suggested glios is of the left occipital lobe which may represent a chronic infarct. Cerebral venous sinuses and major arterial flow voids appear patent. Skull, orbits and soft tissues a re unremarkable. Prior bilateral lens repair. IMPRESSION: 1. No acute intracranial abnormality. No acute or subacute infarct. 2. Involutional changes with moderate chronic microvascular ischemic disease. ACT 112: Negative or not required by law. The above report was generated using voice recognition software. It may contain grammatical, syntax o r spelling errors. Electronically signed by: Priyank Guadarrama M.D. 12/23/2021 5:24 PM
[2021-12-23] MEDS ORDERED: CARBOHYDRATES FOR HYPOGLYCEMIA PO PRN (18:05)
[2021-12-23] MEDS ORDERED: POLYETHYLENE (MIRALAX) 17 GM PACK PO PRN (18:05)
[2021-12-23] MEDS ORDERED: GLUCOSE 40% GEL 15 GM TUBE PO PRN (18:05)
[2021-12-23] MEDS ORDERED: ACETAMINOPHEN 325 MG TAB PO PRN (18:05)
[2021-12-23] MEDS ORDERED: GLUCOSE 10 TAB/TUBE PO PRN (18:05)
[2021-12-23] MEDS ORDERED: FUROSEMIDE 40 MG TAB PO ONE (18:05)
[2021-12-23] MEDS ORDERED: GLUCAGON FOR INJ 1 MG VIAL SQ PRN (18:05)
[2021-12-23] MEDS ORDERED: DEXTROSE 50% 50 ML SYRINGE IV PRN (18:05)
[2021-12-23] MEDS ORDERED: PHARMACIST DISCHARGE MED REC CONSULT PRN (18:05)
[2021-12-23] MEDS: INSULIN ASPART PER UNIT SC SCH ×2 (19:22→21:44)
[2021-12-23] MEDS ORDERED: LATANOPROST 0.005% OP SOLN 2.5 ML BTL OPB SCH (21:00)
[2021-12-23] MEDS ORDERED: ATORVASTATIN 40 MG TAB PO SCH (21:00)
[2021-12-23] MEDS ORDERED: FERROUS SULFATE 325 MG TAB PO SCH (21:00)
[2021-12-23] MEDS: carvediloL 25 MG TAB PO SCH (21:27)
[2021-12-23] MEDS: cloNIDine HCL 0.3 MG TAB PO SCH (21:27)
[2021-12-23] MEDS: LANTUS PER UNIT CHARGE SQ SCH (21:44)
[2021-12-24 06:28] LABS: Anion Gap 11 (3-11); BUN Creatinine Ratio 18.2 (10-20); Blood Urea Nitrogen 31 mg/dl (6-23); Calcium 8.9 mg/dl (8.5-10.1); Carbon Dioxide 27 mmol/L (21-32); Chloride 98 mmol/L (98-107); Cholesterol 166 mg/dl (0-200); Creatinine Clr Calc Pharmacy 45.7 ml/min; Est GFR (African American) 44.7 ml/min; Est GFR (Non-African American) 38.6 ml/min; Glucose 233 mg/dl (70-99(Fasting)); HDL Cholesterol 26 mg/dl; Potassium 4.1 mmol/L (3.5-5.1); Sodium 136 mmol/L (136-145); Triglycerides 528 mg/dl (0-150)
[2021-12-24] MEDS ORDERED: LEVOTHYROXINE SODIUM 50 MCG TABLET PO SCH (06:30)
[2021-12-24 06:32] LABS: Chol HDL Ratio 6.4 (0-5)
[2021-12-24 06:51] LABS: Hemoglobin 11.9 g/dl (14.0-18.0); Mean Corpuscular Hemoglobin 28.2 pg (25.0-34.0); Mean Corpuscular Hgb Conc 32.2 g/dL (32.0-36.0); Mean Corpuscular Volume 87.7 fL (80.0-100.0); Mean Platelet Volume 10.2 fL (9.4-12.4); Platelet Count 231 K/uL (130-400); RDW Standard Deviation 47.8 fL (36.4-46.3); Red Blood Count 4.22 M/uL (4.63-6.08); White Blood Count 11.92 K/ul (4.8-10.8)
--- NOTE | 2021-12-24 06:56 | Ultrasound Report ---
US carotid doppler BI CLINICAL HISTORY: 76 years-old Male with TIA symptoms. Acute strokelike symptoms COMPARISON: None TECHNIQUE: Multiple real time sonographic images of the carotid bifurcations were obtained assessing hemphill scale, color Doppler and spectral wave form appearance FINDINGS: RIGHT CAROTID: The peak systolic velocity measure within the right ICA is 77 cm/sec. The end diasto lic velocity measured 11 cm/sec. The ICA to CCA ratio measured 1.4 which correlates with a stenosis of 0-50%. Moderate atherosclerotic plaque of the right carotid bulb and proximal right ICA. LEFT CAROTID: The peak systolic velocity measured within the left ICA is 75 cm/sec. The end diastol ic velocity measured 20 cm/sec. The ICA to CCA ratio measured 1.3 which correlates with a stenosis of 0-50%. Moderate atherosclerotic plaque of the common and internal carotid arteries. There is normal antegrade vertebral flow bilaterally. IMPRESSION: 1. Moderate atherosclerosis without hemodynamically significant stenosis. 2. Normal antegrade vertebral flow bilaterally. ACT 112: Negative or not required by law. The above report was generated using voice recognition software. It may contain grammatical, syntax o r spelling errors. Electronically signed by: Priyank Guadarrama M.D. 12/24/2021 6:55 AM
[2021-12-24] MEDS: carvediloL 25 MG TAB PO SCH (07:36)
[2021-12-24] MEDS: cloNIDine HCL 0.3 MG TAB PO SCH (07:38)
[2021-12-24 08:26] LABS: Estimated Average Glucose 212 mg/dl
[2021-12-24] MEDS: INSULIN ASPART PER UNIT SC SCH ×2 (08:47→11:47)
[2021-12-24] MEDS ORDERED: CHOLECALCIFEROL 1,000 UNITS 25 MCG TAB PO SCH (09:00)
[2021-12-24] MEDS ORDERED: FUROSEMIDE 80 MG TAB PO SCH (09:00)
[2021-12-24] MEDS ORDERED: PANTOprazole 40 MG TAB PO SCH (09:00)
[2021-12-24] MEDS ORDERED: MAGNESIUM OXIDE 400 MG TAB PO SCH (09:00)
[2021-12-24] MEDS ORDERED: allopurinoL 300 MG TAB PO SCH (09:00)
[2021-12-24] MEDS ORDERED: CYANOCOBALAMIN (B-12) 500 MCG TABLET PO SCH (09:00)
[2021-12-24] MEDS ORDERED: LOSARTAN POTASSIUM 25 MG TAB PO SCH (09:00)
[2021-12-24] MEDS: LANTUS PER UNIT CHARGE SQ SCH (09:03)
--- NOTE | 2021-12-24 10:55 | Neurology Consultation ---
Date of Consultation December 24, 2021 Assessment & Plan (1) Dizziness: (2) Cerebrovascular disease: Plan 76-year-old male with a history of recent admission to the [facility] for acute on chronic congestive heart failure, discharged on December 21, presenting again to the [facility] on December 23 for an episode of dizziness with associated confusion, lasting about 15 minutes according to the patient, but occurring without other specific, focal, neurologic signs or symptoms. A TIA is certainly possible and cannot be completely excluded. It is encouraging that his brain MRI did not reveal any evidence of acute or subacute infarct. The study does, however, reveal moderate chronic microvascular ischemic disease as well as an element of atrophy. The carotid ultrasound is negative for hemodynamically significant stenosis. The episode is not suggestive of seizure and does not sound very suggestive of presyncope or syncope. Although I am unable to completely exclude a TIA in this patient, he has a history of intolerance to any type of blood thinner including aspirin and warfarin due to excessive bleeding with either of these medications. Therefore, I would not recommend treatment with blood thinners at this point in time. Patient should continue with atorvastatin 80 mg/day, the dosage is maximal. I do not think an EEG is necessary. As he has been clinically stable, I do not think additional neurological evaluations are necessary. If he were to experience another episode without obvious cause, would be reasonable to obtain a CT angiogram of the head and neck. However, his carotid duplex did not reveal any significant vascular lesion and he is unable to take antiplatelet or anticoagulant medication due to excessive bleeding. Follow-up with echocardiography, trend troponins, consider up-to-date cardiology consultation as well. No further immediate recommendations from a neurological perspective. History of Present Illness Reason for Consultation: TIA? Requesting Physician: Martine Rodney PA-C Attending Physician: Qamar Park MD History of Present Illness The patient is a 76-year-old male who presented to the emergency department yesterday for further assessment of dizziness and associated confusion. He had been ringing in some groceries from the car when suddenly felt dizzy or lightheaded, he sat down on the porch and recalls having some mild confusion at that time, difficult to describe, may have had some difficulty speaking with his spouse at that time, no difficulty with comprehension, not clearly aphasia, however. No associated headache, slurred speech, or focal weakness. No associated loss of awareness, collapse, convulsive activity, or loss of consciousness. He thinks the episode lasted for perhaps 15 minutes and resolved. His spouse brought him to the emergency department for further evaluation. He did have an elevated troponin and some abnormalities on ECG. A CT of the head was negative for hemorrhage or acute process. A brain MRI was negative for acute process as well. There is evidence of mild atrophy and moderate chronic microvascular ischemic disease. I did independently review the images. No restricted diffusion, no blooming artifact, moderate chronic microv ascular ischemic disease on T2/FLAIR weighted sequences, mild generalized atrophy, no hydrocephalus per my review. Carotid ultrasound revealed moderate atherosclerosis without hemodynamically significant stenosis and normal antegrade vertebral flow bilaterally. An ECG revealed sinus rhythm with first- degree AV block with occasional PVCs and premature atrial complexes, 85 bpm. Patient remarks she had an uneventful night, no further episodes, no specific complaints at this time. Denies any known history of stroke or TIA. Patient had been admitted to the [facility] on December 15, 2020 for evaluation and management of acute on chronic congestive heart failure, was discharged on December 21, 2020. Past medical history notable for hypertension, hyperlipidemia, history of bioprosthetic AVR in 2009, YOON on BiPAP, chronic heart failure, insulin-dependent type 2 diabetes mellitus, diabetic neuropathy, hypothyroidism, gout, CKD stage IIIb, Fajardo's esophagitis, BPH. Congestive heart failure stable at time of discharge, was also treated for left lower extremity cellulitis, hypertension stable, chronic kidney disease stable, type 2 diabetes mellitus with a hemoglobin A1c of 7.5 recently, stable hypothyroidism, YOON stable with BiPAP. Allergies Allergy/AdvReac Type Severity Reaction Status Date / Time aspirin AdvReac Severe gi bleed Verified 12/23/21 15:26 warfarin AdvReac Severe "bleeding Verified 12/23/21 15:26 with anticoagulants" Home Medications Medication Instructions Recorded Confirmed Type allopurinol 300 mg tablet 300 mg PO QAM 09/06/18 12/23/21 History atorvastatin 80 mg tablet 80 mg PO QPM 09/06/18 12/23/21 History carvedilol 25 mg tablet 50 mg PO BID 09/06/18 12/23/21 History cholecalciferol (vitamin D3) 50 2,000 unit PO QAM 09/06/18 12/23/21 History mcg (2,000 unit) tablet clonidine HCl 0.3 mg tablet 0.3 mg PO BID 09/06/18 12/23/21 History cyanocobalamin (vitamin B-12) 1,000 mcg PO QAM 09/06/18 12/23/21 History 1,000 mcg tablet (Vitamin B-12) ferrous sulfate 325 mg (65 mg 325 mg PO QPM 09/06/18 12/23/21 History iron) tablet furosemide 80 mg tablet 80 mg PO QAM 09/06/18 12/23/21 History latanoprost 0.005 % eye drops 1 drp OPB PM 09/06/18 12/23/21 History (Xalatan) levothyroxine 50 mcg tablet 50 mcg PO QAM 09/06/18 12/23/21 History magnesium oxide 400 mg PO QAM 09/06/18 12/23/21 History omeprazole 20 mg tablet,delayed 20 mg PO QAM 09/06/18 12/23/21 History release furosemide 40 mg tablet (Lasix) 40 mg PO QPM #30 tabs 12/20/20 12/23/21 Rx insulin degludec 100 unit/mL (3 45 unit subcut HS 12/23/21 12/23/21 History mL) subcutaneous pen (Tresiba FlexTouch U-100 insulin) losartan 25 mg tablet 25 mg PO DAILY 12/23/21 12/23/21 History metformin 500 mg tablet 500 mg PO BID 12/23/21 12/23/21 History semaglutide 0.25 mg or 0.5 mg (2 0.5 mg subcut WK 12/23/21 12/23/21 History mg/1.5 mL) subcutaneous pen injector (Ozempic) Patient History Medical History Barretts esophagus Cardiac murmur Chronic diastolic heart failure Chronic iron deficiency anemia Chronic kidney disease, stage 3 Colon polyps Degenerative disc disease Diabetes mellitus, type 2 GERD (gastroesophageal reflux disease) GI bleed 2009 d/t coumadin use Glaucoma of both eyes Gout Hearing deficit History of first degree AV block Hyperlipidemia Hypertension Hypothyroidism On home oxygen therapy 2.5L at night Osteoarthritis Sleep apnea bipap with 2.5L oxygen Surgical History History of aortic valve replacement 2009 @ [facility] History of appendectomy History of arthroscopy of left knee x2 History of arthroscopy of right knee History of bilateral cataract extraction History of cardiac cath 2009 @ [facility] no stents History of colonoscopy History of esophagogastroduodenoscopy (EGD) History of tooth extraction all upper teeth, most of lower teeth History of total left knee replacement (TKR) History of total right knee replacement (TKR) Family History Mother Family history of diabetes mellitus Colorectal cancer Heart disease Myocardial infarction Other No family history of adverse response to anesthesia Social History Smoking Status: Former smoker packs per day: 1; Years Smoked: 30; Cigarettes Per Day: 20; Smoking End Date: quit 30 years ago; Second Hand Exposure: Yes; Hx Alcohol Use: Yes Alcohol type: beer and hard liquor Hx Substance Use: No Preferred Language: Divehi Communication Ability: Effective Supervisor Title Required: No Beliefs That Will Affect Care: None marital status: Current Living Situation: Spouse Current Living Situation Comment: Home How many Children do You have: 3 Feels Safe at Home: Yes Safety Concerns: Feels Safe At This Time Assistive Devices: BiPap, Denture - Upper, Denture - Lower, Glasses and Oxygen - at Night Review of Systems Constitutional: no fever and no chills Eyes: no blind spots and no diplopia Ear, Nose, Mouth, Throat: no hearing loss Respiratory: no cough and no dyspnea Cardiovascular: no chest pain and no palpitations Gastrointestinal: no nausea and no vomiting Genitourinary: no urinary incontinence Musculoskeletal: no myalgia Integumentary: no rash Neurologic: no gait abnormality Psychiatric: no depression and no anxiety Hematologic / Lymphatic: + easy bleeding and + easy bruising Exam (Neuro) Constitutional: well developed and well nourished; no acute distress Eyes: normal visual mcdowell by confrontation, PERRL, normal accommodation and EOM intact bilaterally; no fundoscopic abnormality, no nystagmus and no papilledema Cardiovascular: Vessels: normal carotid upstroke; no carotid bruit Neurologic: Oriented to:: Person, Place and Time Memory: Short Term Intact and Remote Intact Attention: Span Intact and Concentration Intact Language: Naming Objects and Repeating Phrases Speech Fluency: negative Dysarthria Speech Aphasia: negative Aphasia Fund of Knowledge: Current Events, Past History and Vocabulary Cranial Nerves: Normal II (Visual mcdowell full to confrontation, visual acuity normal), III, IV, (Pupils equal round reactive to light and accommodation, eye movements normal), V (Facial sensation intact), VII (There is no facial droop or weakness), VIII (Hearing intact), IX, X (Palate elevates to midline), XI (Shoulder shrug intact) and XII (Tongue protrudes to midline) Motor Strength: Normal Lower Extremities and Normal Upper Extremities; negative Pronator Drift Motor Tone: Normal Lower Extremities and Normal Upper Extremities Muscle Bulk/Involuntary Movements: No Involuntary Movements; negative Muscle Atrophy Sensation: Light Touch Intact, Pain/Temperature Intact, Vibration Intact and Proprioception Intact Coordination: Normal; negative Limited Balance, Dysdiadochokinesia, Finger-Nose Abnormal or Heel-Arzola Abnormal Deep Tendon Reflexes: Rt Triceps: 2+, Lt Triceps: 2+, Rt Biceps: 2+, Lt Biceps: 2+, Rt Brachioradialis: 2+, Lt Brachioradialis: 2+, Rt Patellar: 2+, Lt Patellar: 2+, Rt Ankle: 2+ and Lt Ankle: 2+ Special Tests: negative Babinski Present Gait: Normal Station and Gait Results & Data ([facility]) Vital Signs (Past 12 Hours) Vital Signs Temp Pulse Pulse Resp BP BP Pulse Ox 12/24/21 08:40 78 22 93 12/24/21 08:30 78 21 91 12/24/21 08:20 76 22 94 12/24/21 08:10 80 15 91 12/24/21 08:00 77 19 93 12/24/21 08:00 168/83 H 12/24/21 07:58 64 15 12/24/21 05:10 70 L 12/24/21 05:04 73 L 12/24/21 04:00 85 18 96 12/24/21 04:00 110/76 12/24/21 03:50 84 16 97 12/24/21 03:40 79 19 97 12/24/21 03:30 78 16 97 12/24/21 03:20 85 20 96 12/24/21 03:10 82 11 L 97 12/24/21 03:00 87 18 98 12/24/21 03:00 139/57 L 12/24/21 02:50 76 17 98 12/24/21 02:40 84 20 97 12/24/21 02:30 80 16 98 12/24/21 02:20 78 16 98 12/24/21 02:10 80 16 97 12/24/21 02:00 78 17 98 12/24/21 02:00 134/62 12/24/21 01:50 78 17 97 12/24/21 01:40 80 17 95 12/24/21 01:30 78 15 95 12/24/21 01:20 79 19 94 12/24/21 01:10 80 16 96 12/24/21 01:00 74 16 98 12/24/21 01:00 144/68 H 12/24/21 00:50 78 15 95 12/24/21 00:40 79 16 96 12/24/21 00:36 77 19 95 12/24/21 09:19 36.4 C L 56 L 18 123/67 94 12/24/21 06:47 12/24/21 04:00 83 18 110/76 97 12/23/21 23:59 80 16 143/79 H 96 O2 Del Method 12/24/21 08:40 12/24/21 08:30 12/24/21 08:20 12/24/21 08:10 12/24/21 08:00 12/24/21 08:00 12/24/21 07:58 12/24/21 05:10 12/24/21 05:04 12/24/21 04:00 12/24/21 04:00 12/24/21 03:50 12/24/21 03:40 12/24/21 03:30 12/24/21 03:20 12/24/21 03:10 12/24/21 03:00 12/24/21 03:00 12/24/21 02:50 12/24/21 02:40 12/24/21 02:30 12/24/21 02:20 12/24/21 02:10 12/24/21 02:00 12/24/21 02:00 12/24/21 01:50 12/24/21 01:40 12/24/21 01:30 12/24/21 01:20 12/24/21 01:10 12/24/21 01:00 12/24/21 01:00 12/24/21 00:50 12/24/21 00:40 12/24/21 00:36 12/24/21 09:19 Room Air 12/24/21 06:47 Room Air 12/24/21 04:00 Room Air 12/23/21 23:59 CPAP Laboratory Results WBC 11.92, hemoglobin 11.9, hematocrit 37.0, MCV 87.7, platelet count 231, sodium 136, potassium 4.1, BUN 31, creatinine 1.70, glucose 233, hemoglobin A1c 9.0, calcium 8.9, AST 16, ALT 18, high-sensitivity troponin 27.1, triglycerides 528, cholesterol 166, HDL 26, TSH 5.[address] of the head, brain MRI, and carotid duplex are as described in the history of present illness. I independently reviewed the images pertaining to the head CT and brain MRI, please see HPI for further details. Electrocardiogram reveals sinus rhythm with first-degree AV block with occasional PVCs and PACs. 85 bpm. An echocardiogram completed December 15, 2020 revealed normal left ventricular size, moderate concentric left ventricular hypertrophy, normal left ventricular wall motion, EF 60 to 65%, bioprosthetic aortic valve, valve leaflets freely mobile, valve velocities and gradients mildly elevated but consistent with prior studies, no aortic regurgitation, moderate mitral annular calcification, mild mitral regurgitation, mild to moderate tricuspid regurgitation, right ventricular systolic pressure elevated at 40 to 50 mmHg. Left atrium moderately dilated, no ASD. Coding Level of Care Code 87154 Initial Inpt Care Lvl 3 Diagnoses Dizziness R42 Cerebrovascular disease I67.9
[2021-12-24] MEDS ORDERED: FUROSEMIDE 40 MG TAB PO SCH (14:00)
[2021-12-24] MEDS ORDERED: STROKE PATIENT DISCHARGE STA (15:48)
--- NOTE | 2021-12-24 15:49 | Discharge Summary ---
Date of Service December 24, 2021 Admission HPI Per Admitting Provider Patient is 76-year-old male with PMH chronic diastolic heart failure, history of first-degree AV block, Mobitz 1, history aortic valve replacement, HTN, dyslipidemia, DM II, hypothyroidism CKD III, hypothyroidism, Fajardo's esophagus, YOON on BiPAP, chronic iron deficiency anemia, gout presented to ER with complaint of "dizziness". Patient reports ate breakfast at [employer] today and afterward went to [place] and walked around for 30-45 minutes. When he was walking to the car he reports he had any episode of "dizziness" which patient describes as not being able to concentrate, having trouble forming his thoughts. Patient denies any lightheadedness or vertigo type symptoms. He reports the symptoms lasted approximately 45 minutes and self resolved. His is concerned so patient presented to ER today. Denies any headache, vision changes, noted slurred speech, facial drooping, extremity weakness or paresthesias. Patient denies any chest pain, shortness of breath, palpitations. He denies any similar episodes of symptoms in past. Denies fever/chills, diaphoresis, N/V/D/C, syncope, fall, vision changes, neck pain, CP, SOB, orthopnea, cough, sore throat, choking, otalgia, rhinorrhea, abdominal pain, increased extremity edema, rashes, urinary symptoms. In ER patient asymptomatic. BSG 228. CT head negative. Admission Exam Per Admitting Provider General: no distress, WDWN Head: normocephalic, atraumatic Eyes: PERRL, EOM's intact, conjunctiva non-injected, anicteric ENT: normal inspection external ears, nose, mucous membranes moist Neck: supple, trachea midline Lungs: clear, no respiratory distress, no wheezing/rhonchi/rales CV: RRR, no murmur, 1+ pretibial edema Abd: normal BS, soft, non-tender Ext: no cyanosis, no calf tenderness Neuro: A&O x 3, no focal deficits noted, normal affect Skin: warm, dry Principal Diagnosis Dizziness Discharge Exam General- No acute distress Head- atraumatic Eyes- PERRL, EOMI, ENT- oropharynx clear Neck- supple, no JVD Lungs- clear to auscultation Heart- regular rhythm; no murmur Abdomen- normal bowel sounds, soft, nontender Extremities- no calf tenderness, +edema Neuro- alert, oriented x 3; PERRL, EOMI; no facial palsy; no dysarthria Skin- warm & dry Discharge Data Allergies Allergy/AdvReac Type Severity Reaction Status Date / Time aspirin AdvReac Severe gi bleed Verified 12/23/21 15:26 warfarin AdvReac Severe "bleeding Verified 12/23/21 15:26 with anticoagulants" Consultations 12/23/21 18:00 ED Decision to Admit Stat 12/23/21 18:05 Consult Neurology Routine Ordered Studies 12/23/21 11:53 CT head/brain wo con Stat 12/23/21 15:47 MR brain wo con Routine 12/23/21 18:05 US carotid doppler BI Routine XR chest 1V portable HISTORY: 76 years-old Male dizziness acute dizziness COMPARISON: Chest radiograph 12/15/2020 TECHNIQUE: Portable AP view of the chest FINDINGS: Cardiac silhouette is enlarged. Prior median sternotomy. Atherosclerosis of the aorta. Mild right hemidiaphragmatic elevation. No pneumothorax, pleural effusion, airspace consolidation or overt pulmonary edema. Bones appear grossly intact. IMPRESSION: No acute process. ACT 112: Negative or not required by law. The above report was generated using voice recognition software. It may contain grammatical, syntax or spelling errors. Electronically signed by: Priyank Guadarrama M.D. 12/23/2021 1:07 PM Dictated:12/23/21 1305 Transcribed: 12/23/[address] head/brain wo con CLINICAL HISTORY: 76 years-old Male with dizziness/confusion. Acute dizziness with altered mental status TECHNIQUE: Multiple axial CT images of the head were obtained without contrast. A dose lowering technique was utilized adhering to the principles of ALARA. CT DOSE: 614.27 mGy.cm COMPARISON: None. FINDINGS: No acute intracranial hemorrhage, midline shift, intracranial mass, hydrocephalus, territorial ischemia or abnormal extra-axial collection. Age- related involutional changes. White matter hypodensities suggest chronic microvascular ischemic disease. Study is motion degraded. Extensive calcifications are noted within the distal internal carotid and vertebral arteries. The calvarium is intact. Prior bilateral lens repair. The paranasal sinuses, mastoid air cells, and middle ear cavities are clear. IMPRESSION: No acute intracranial abnormality. ACT 112: Negative or not required by law. The above report was generated using voice recognition software. It may contain grammatical, syntax or spelling errors. Electronically signed by: Priyank Guadarrama M.D. 12/23/2021 1:21 PM Dictated:12/23/21 1319 Transcribed: 12/23/211318 MR brain wo con HISTORY: 76 years-old Male TIA symptoms acute strokelike symptoms COMPARISON: Head CT of same day TECHNIQUE: Multiplanar multisequence MRI of the brain was obtained without the IV contrast FINDINGS: No restricted diffusion to suggest acute or subacute infarct. Midline structures appear unremarkable. Degenerative changes of the imaged cervical spine. No acute intracranial hemorrhage, midline shift, abnormal extra axial collection, hydrocephalus or intracranial mass. Age-related involutional changes. Moderate T2/FLAIR hyperintense foci are noted throughout the white matter. There is suggested gliosis of the left occipital lobe which may represent a chronic infarct. Cerebral venous sinuses and major arterial flow voids appear patent. Skull, orbits and soft tissues are unremarkable. Prior bilateral lens repair. IMPRESSION: 1. No acute intracranial abnormality. No acute or subacute infarct. 2. Involutional changes with moderate chronic microvascular ischemic disease. ACT 112: Negative or not required by law. The above report was generated using voice recognition software. It may contain grammatical, syntax or spelling errors. Electronically signed by: Priyank Guadarrama M.D. 12/23/2021 5:24 PM Dictated:12/23/211717 Transcribed: 12/23/211717 US carotid doppler BI CLINICAL HISTORY: 76 years-old Male with TIA symptoms. Acute strokelike symptoms COMPARISON: None TECHNIQUE: Multiple real time sonographic images of the carotid bifurcations were obtained assessing hemphill scale, color Doppler and spectral wave form appearance FINDINGS: RIGHT CAROTID: The peak systolic velocity measure within the right ICA is 77 cm/sec. The end diastolic velocity measured 11 cm/sec. The ICA to CCA ratio measured 1.4 which correlates with a stenosis of 0-50%. Moderate atherosclerotic plaque of the right carotid bulb and proximal right ICA. LEFT CAROTID: The peak systolic velocity measured within the left ICA is 75 cm/sec. The end diastolic velocity measured 20 cm/sec. The ICA to CCA ratio measured 1.3 which correlates with a stenosis of 0-50%. Moderate atherosclerotic plaque of the common and internal carotid arteries. There is normal antegrade vertebral flow bilaterally. IMPRESSION: 1. Moderate atherosclerosis without hemodynamically significant stenosis. 2. Normal antegrade vertebral flow bilaterally. ACT 112: Negative or not required by law. The above report was generated using voice recognition software. It may contain grammatical, syntax or spelling errors. Electronically signed by: Priyank Guadarrama M.D. 12/24/2021 6:55 AM Dictated:12/24/21652 Transcribed: 12/24/21652 Diabetes Follow up Diabetes Follow-up Needed for HgbA1c >9% Hospital Course (1) Stroke-like symptom: Patient is 76-year-old male with PMH chronic diastolic heart failure, history of first-degree AV block, Mobitz 1, history aortic valve replacement, HTN, dyslipidemia, DM II, hypothyroidism CKD III, hypothyroidism, Fajardo's esophagus, YOON on BiPAP, chronic iron deficiency anemia, gout presented to ER with complaint of "dizziness" which he describes as inability to concentrate and unable to form thoughts that lasted approx 45 minutes. In ER vitals stable. patient asymptomatic. BSG 228. CT head negative. No significant electrolyte abnormality. DDX: TIA vs arrhythmia. Less likely hypoglycemia as BSG in ER is 228 and patient ate breakfast MRI head showed no acute intracranial abnormality. No acute or subacute infarct. Carotid Doppler showed moderate atherosclerosis without hemodynamically significant stenosis. ECHO showed normal LV wall motion with EF 60 to 65% History of intolerance to any type of blood thinner including aspirin and warfarin due to excessive bleeding with either of these medications Continue statin No further testing from neurology standpoint Dizziness resolved (2) Elevated troponin: High sensitivity troponin: 20. EKG: t wave inversions lateral leads. T wave inversions noted on EKG years ago that had since improved on most recent ekg Denies CP, SOB Troponin peaked to 27 ECHO showed normal LV wall motion with EF 60 to 65% Denies any chest pain (3) Chronic diastolic heart failure: Appears euvolemic -Continue home Lasix (4) H/O aortic valve repair: History aortic valve replacement 2009 (5) History of first degree AV block: History Mobitz 1 -Monitor on telemetry (6) Hypertension: - Continue carvedilol, clonidine, losartan (7) Hyperlipidemia: - Continue atorvastatin (8) DM2 (diabetes mellitus, type 2): A1c: 8.8 on 07/17/2021 -Hold home glycemic agents -Basal bolus insulin per protocol (9) Chronic kidney disease, stage 3: Cr:: 1.5. Baseline 1.4-1.7 -Monitor renal functions, avoid nephrotoxic agents when possible (10) YOON treated with BiPAP: - BiPAP at bedtime (11) Fajardo esophagus: - Continue PPI (12) Chronic iron deficiency anemia: HPI: 11.7. Baseline Hgb in 10's -Monitor H&H -Continue iron supplement, B12 supplement (13) Gout: - Continue allopurinol DVT Prophylaxis -SCDs. Patient denies chemical VTE prophylaxis at this time secondary to history GI bleed Full Code as per discussion with pt Follows with Dr Alvarez. for routine care By CMS guidelines, a determination that the admission or continued stay is not medically necessary has been made by a member of the UR committee and a physician for this hospital stay, therefore a Code 44 will be completed and the Inpatient admission will be changed to outpatient. 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 Schultz ( already had an upcoming appointment) Continue monitor your blood sugar and bring your blood sugar log at your next follow up appointment with your provider ( your provider will adjust your insulin according to the blood sugar log) Your provider or cardiology might consider to arrange for a heart monitor to wear outpatient for short time Seek medical attention if your symptoms reoccur Fall precaution Pending Studies at Discharge: No Stand-Alone Forms: My [facility], Smoking Cessation Medications and DC Order Prescriptions: Continued cyanocobalamin (vitamin B-12) [Vitamin B-12] 1,000 mcg Tablet 1,000 mcg PO QAM latanoprost [Xalatan] 0.005 % Drops 1 drp OPB PM atorvastatin 80 mg Tablet 80 mg PO QPM carvedilol 25 mg Tablet 50 mg PO BID clonidine HCl 0.3 mg Tablet 0.3 mg PO BID furosemide 80 mg Tablet 80 mg PO QAM levothyroxine 50 mcg Tablet 50 mcg PO QAM ferrous sulfate 325 mg (65 mg iron) Tablet 325 mg PO QPM allopurinol 300 mg Tablet 300 mg PO QAM omeprazole 20 mg Tablet,Delayed Release (Dr/Ec) 20 mg PO QAM cholecalciferol (vitamin D3) 2,000 unit Tablet 2,000 unit PO QAM magnesium oxide 400 mg magnesium Tablet 400 mg PO QAM losartan 25 mg tablet 25 mg PO DAILY Tresiba FlexTouch U-100 100 unit/mL (3 mL) Insulin Pen 45 unit SUBCUT HS metformin 500 mg tablet 500 mg PO BID Ozempic 0.25 mg or 0.5 mg(2 mg/1.5 mL) Pen Injector 0.5 mg SUBCUT WK Rx Instructions: Takes on tu in am. furosemide [Lasix] 40 mg tablet 40 mg PO QPM Qty: 30 0RF Rx Instructions: TO BE TAKEN AT 2PM Discharge Orders: Discharge Order (Routine); Ordered 12/24/21 Ordered By: Qamar Valenzuela/Other Patient Handouts: Managing Type 2 Diabetes Admission Data Admit Date/Time: 12/23/21 13:58 Attending Provider: Qamar Park Admit Provider: Ananda Lott Primary Care Provider: Aki Alvarez Other Providers: Varun Vaca Other Interventions: Discharge Summary Assessment (RN) Last Done: 12/24/21 16:11
--- NOTE | 2021-12-25 05:38 | Electrocardiogram Report ---
Test Reason : Blood Pressure : / mmHG Vent. Rate : 085 BPM Atrial Rate : 085 BPM P-R Int : 228 ms QRS Dur : 074 ms QT Int : 402 ms P-R-T Axes : 009 011 125 degrees QTc Int : 478 ms Poor data quality, interpretation may be adversely affected Sinus rhythm with 1st degree A-V block with occasional Premature ventricular complexes and Premature atrial complexes Cannot rule out Anterior infarct (cited on or before 22-FEB-2016) T wave abnormality, consider lateral ischemia Abnormal ECG When compared with ECG of 15-DEC-2020 08:38, Premature ventricular complexes are now Present Premature atrial complexes are now Present T wave inversion now evident in Lateral leads Confirmed by Russ Pabon ([id number]) on 12/25/2021 5:38:25 AM Referred By: Confirmed By:Russ Pabon
--- NOTE | 2021-12-27 17:37 | Communication Note ---
Date of Service: December 27, 2021 By CMS guidelines, a determination that the admission or continued stay is not medically necessary has been made by a member of the Utilization Review com toan and a physician for this hospital stay. Therefore, a Code 44 will be completed and the inpatient admission will be changed to outpatient. DO JACKIE Carbajal Physician
== END 2021-12-24 15:30 | disposition home or self-care (01) | DRG 69 ==
LOC: ED 11:38 → INTOOBSV 13:58 → EDINP 13:58 → SUATTDRO 13:58 → EDINP 12-24 06:47

== ENCOUNTER 2022-02-27 18:33 | Inpatient (IN) ==
--- NOTE | 2022-02-27 18:23 | Emergency Department Note ---
Impression & Plan Difficulty with speech, Anemia, Stroke-like symptoms, Hypomagnesemia, Hypertension ED Provider Note NAME: JUDY BARROW AGE: 76 SEX: M : 1945 ARRIVES VIA: Ambulance INFORMANT: [Patient][ems] ED PROVIDER(S): [Joseph Hair MD] Patient first seen by me at the ambulance bay at 1818 CHIEF COMPLAINT: Stroke alert HISTORY OF PRESENT ILLNESS: The patient is a 76-year-old male who presents to the ER for possible stroke. The patient presents by ambulance. As per EMS, his last known well was around 330pm or 4:00pm, 2 hours and 20 minutes ago to possibly 2 hours and 40 minutes ago. The patient's believes the last known well was about 4 PM, 2 hours and 20 minutes ago. The patient woke from a nap and was having a hard time forming sentences. There is no arm or leg weakness. No pain. He is not short of breath. No speech slur. He just cannot seem to find the proper words. As per EMS, this has been unchanged since arrival throughout the transfer to the ED. The patient is not on blood thinning medications. His states he cannot have blood thinners because he keeps losing blood. As per the patient's , the patient has had intermittent headaches, including last evening and today. He has otherwise been without complaints REVIEW OF SYSTEMS: See HPI for pertinent positives and negatives. A total of ten systems were reviewed and were otherwise negative. PMHx/PSHx: See Below SOCIAL HISTORY: See Below. PHYSICAL EXAM: GENERAL: Patient is in no acute distress. HEENT: No acute trauma, normocephalic atraumatic, mucous membranes dry, no nasal congestion, no scleral icterus. NECK: No stridor, no adenopathy, no meningismus, trachea is midline. LUNGS: Clear to auscultation bilaterally, no wheeze, no rhonchi, breath sounds equal. HEART: Slight systolic murmur, irregular rhythm, normal rate. ABDOMEN: Soft, nontender, bowel sounds positive, no peritonitis. EXTREMITIES: No cyanosis, trace bilateral pedal edema, full range of motion of all the joints without pain or difficulty, no signs for acute trauma. NEUROLOGIC: Awake, the patient does have a difficult time finding words and has a hard time explaining his situation. There is no facial droop, no extremity drift or cerebellar dysfunction. SKIN: No rash, no jaundice, no diaphoresis. DIFFERENTIAL DIAGNOSIS: Infection, dehydration, dysrhythmia, UTI, metabolic abnormality, hypo/hyperglycemia, electrolyte disturbance, anemia, hypoxia, cardiac sources, intracerebral event, toxicologic issues, stroke, TIA, as well as other pathologies. EMERGENCY DEPARTMENT COURSE/PROCEDURES: ECG: Indication was possible stroke. The ECG shows what appears to be a sinus rhythm with a first-degree AV block. There are frequent PACs in the pattern of bigeminy. The rate is 78. There is significant baseline artifact. There is some diffuse nonspecific ST change. No ST elevation. The QTc is 424. Continuous Cardiac Monitoring: An order was placed for continuous cardiac m onitoring. The monitor shows a rate of 76 with sinus rhythm with a first-degree AV block and PACs. Critical Care Note: I have personally spent 48 minutes of critical care time in the direct management of this patient. This includes bedside care, interpretation of diagnostic studies, and testing, discussion with consultants, patient, and family members, and other required patient management activities. This 48 minutes is in excess of all separately billable procedures. MEDICAL DECISION MAKING: There is no leukocytosis. The patient is anemic but he carries a history of anemia. There was a normal platelet count. No coagulopathy. Creatinine was somewhat elevated at 1.61, the patient does have a history of renal insufficiency. Glucose was somewhat elevated. Magnesium was low at 1.1. No concerning liver enzyme elevation. ECG showed a sinus rhythm with a first- degree AV block, no obvious acute ischemia. Cardiac enzyme testing x1 was slightly elevated, the patient does carry history of a mild troponin elevation. Urinalysis did not show infection. COVID test returned negative. Chest x-ray did not show pneumonia or CHF. Brain CT showed no acute bleed or mass-effect. CT angio of the head and neck were performed. There was some stenosis of the vertebral arteries, no clot. On exam, the patient appeared a bit dehydrated. He did have difficulty finding words. Given the patient's complaints, a stroke alert was called prehospital. The patient was seen by the stroke neurologist, his symptoms had resolved and he was back to baseline. He was not a candidate for tPA given the resolution of symptoms. He also was not a candidate for tPA as he carries a history of GI bleeding from any type of blood thinning agent or antiplatelet agent. He cannot be anticoagulated. I suspect the patient did have a mini stroke or TIA. His low magnesium may also be playing a role. I did speak with the patient and his family, I did speak with case management, hospitalization is indicated. Further work-up is warranted. During the patient's ED stay, he was given IV saline, IV magnesium, IV labetalol, oral Coreg. His blood pressure has improved with the medications administered. Past Med/Surg History Medical History Fajardo esophagus Barretts esophagus Cardiac murmur Chronic diastolic heart failure Chronic iron deficiency anemia Chronic kidney disease, stage 3 Colon polyps Degenerative disc disease Diabetes mellitus, type 2 Dizziness DM2 (diabetes mellitus, type 2) Elevated troponin GERD (gastroesophageal reflux disease) GI bleed 2009 d/t coumadin use Glaucoma of both eyes Gout Hearing deficit History of first degree AV block Hyperlipidemia Hypertension Hypertension Hypothyroidism On home oxygen therapy 2.5L at night YOON treated with BiPAP Osteoarthritis Sleep apnea bipap with 2.5L oxygen Stroke-like symptom Surgical History H/O aortic valve repair History of aortic valve replacement 2009 [place] [facility] [place] of appendectomy History of arthroscopy of left knee x2 History of arthroscopy of right knee History of bilateral cataract extraction History of cardiac cath 2009 @ [facility] no stents History of colonoscopy History of esophagogastroduodenoscopy (EGD) History of tooth extraction all upper teeth, most of lower teeth History of total left knee replacement (TKR) History of total right knee replacement (TKR) Family History Mother Family history of diabetes mellitus Colorectal cancer Heart disease Myocardial infarction Other No family history of adverse response to anesthesia Social History Smoking Status: Former smoker packs per day: 1; Years Smoked: 30; Cigarettes Per Day: 20; Second Hand Exposure: Yes; Hx Alcohol Use: Yes Alcohol type: beer and hard liquor Hx Substance Use: No Preferred Language: Mauritian Communication Ability: Effective Grape Pruner Required: No Beliefs That Will Affect Care: None marital status: Current Living Situation: Spouse Current Living Situation Comment: Home How many Children do You have: 3 Feels Safe at Home: Yes Assistive Devices: None Allergies Allergies Allergy/AdvReac Type Severity Reaction Status Date / Time aspirin AdvReac Severe gi bleed Verified 02/27/22 19:32 warfarin AdvReac Severe "bleeding Verified 02/27/22 19:32 with anticoagulants" Home Meds Home Medications Medication Instructions Recorded Confirmed allopurinol 300 mg tablet 300 mg PO QAM 09/06/18 02/27/22 atorvastatin 80 mg tablet 80 mg PO QPM 09/06/18 02/27/22 carvedilol 25 mg tablet 50 mg PO BID 09/06/18 02/27/22 cholecalciferol (vitamin D3) 50 2,000 unit PO QAM 09/06/18 02/27/22 mcg (2,000 unit) tablet cyanocobalamin (vitamin B-12) 1,000 mcg PO QAM 09/06/18 02/27/22 1,000 mcg tablet (Vitamin B-12) ferrous sulfate 325 mg (65 mg 325 mg PO QPM 09/06/18 02/27/22 iron) tablet furosemide 80 mg tablet 80 mg PO QAM 09/06/18 02/27/22 latanoprost 0.005 % eye drops 1 drp OPB PM 09/06/18 02/27/22 (Xalatan) levothyroxine 50 mcg tablet 50 mcg PO QAM 09/06/18 02/27/22 magnesium oxide 400 mg PO QAM 09/06/18 02/27/22 insulin degludec 100 unit/mL (3 40 unit subcut HS 12/23/21 02/27/22 mL) subcutaneous pen (Tresiba FlexTouch U-100 insulin) metformin 500 mg tablet 500 mg PO BIDM 12/23/21 02/27/22 clonidine HCl 0.2 mg tablet 0.2 mg PO BID 02/27/22 02/27/22 losartan 100 mg tablet 100 mg PO DAILY 02/27/22 02/27/22 omeprazole 20 mg capsule,delayed 20 mg PO QAM 02/27/22 02/27/22 release Previous Rx's Medication Instructions Recorded furosemide 40 mg tablet (Lasix) 40 mg PO QPM #30 tabs 12/20/20 Results & Data (ED) Vital Signs Vital Signs - 24 hr 02/27/22 18:18 02/27/22 18:18 02/27/22 18:18 Temperature 36.7 C Temperature Source Oral Oral Pulse Rate 86 Pulse Rate [Finger] Pulse Rate from SpO2 Sensor Pulse Rhythm [Finger] Pulse Strength [Finger] Respiratory Rate 16 Respiratory Effort / Characteristics Non-Labored Respiratory Depth Normal Respiratory Pattern Blood Pressure 100/82 Blood Pressure [Right Arm] Blood Pressure Mean 88 Blood Pressure Mean [Right Arm] Blood Pressure Position Sitting Blood Pressure Position [Right Arm] Pulse Oximetry 95 Oxygen Delivery Method Room Air Room Air Sepsis Recent Fever Within 48 Hours No Sepsis New/Unexplained Change in Mental Status No Sepsis Action Taken by Nursing No Action Required 02/27/22 18:36 02/27/22 18:47 02/27/22 18:55 Temperature Temperature Source Pulse Rate 81 Pulse Rate [Finger] Pulse Rate from SpO2 Sensor Pulse Rhythm [Finger] Pulse Strength [Finger] Respiratory Rate 20 Respiratory Effort / Characteristics Respiratory Depth Respiratory Pattern Blood Pressure 155/90 H 203/79 H 176/117 H Blood Pressure [Right Arm] Blood Pressure Mean 111 120 136 Blood Pressure Mean [Right Arm] Blood Pressure Position Blood Pressure Position [Right Arm] Pulse Oximetry 96 Oxygen Delivery Method Room Air Sepsis Recent Fever Within 48 Hours Sepsis New/Unexplained Change in Mental Status Sepsis Action Taken by Nursing 02/27/22 18:55 02/27/22 19:06 02/27/22 19:14 Temperature Temperature Source Pulse Rate 88 92 H Pulse Rate [Finger] 92 H Pulse Rate from SpO2 Sensor 94 H 70 Pulse Rhythm [Finger] Pulse Strength [Finger] Respiratory Rate 22 20 20 Respiratory Effort / Characteristics Non-Labored Spontaneous Respiratory Depth Normal Respiratory Pattern Blood Pressure Blood Pressure [Right Arm] 171/100 H Blood Pressure Mean Blood Pressure Mean [Right Arm] 123 Blood Pressure Position Blood Pressure Position [Right Arm] Sitting Pulse Oximetry 96 97 96 Oxygen Delivery Method Room Air Sepsis Recent Fever Within 48 Hours Sepsis New/Unexplained Change in Mental Status Sepsis Action Taken by Nursing 02/27/22 19:45 Temperature Temperature Source Pulse Rate Pulse Rate [Finger] 86 Pulse Rate from SpO2 Sensor Pulse Rhythm [Finger] Regular Pulse Strength [Finger] Normal Respiratory Rate 18 Respiratory Effort / Characteristics Non-Labored Respiratory Depth Normal Respiratory Pattern Regular Blood Pressure Blood Pressure [Right Arm] 155/100 H Blood Pressure Mean Blood Pressure Mean [Right Arm] 118 Blood Pressure Position Blood Pressure Position [Right Arm] Sitting Pulse Oximetry 97 Oxygen Delivery Method Room Air Sepsis Recent Fever Within 48 Hours Sepsis New/Unexplained Change in Mental Status Sepsis Action Taken by Long Term Medications Current Medication List: was personally reviewed by me Laboratory Data Attestation: I reviewed the patient's lab results. Result diagrams: 02/27/22 18:37 02/27/22 18:37 Lab Results 02/27/22 02/27/22 02/27/22 Range/Units 18:37 18:37 18:37 WBC 9.28 (4.8-10.8) K/ul RBC 3.70 L (4.63-6.08) M/uL Hgb 10.8 L (14.0-18.0) g/dl Hct 32.0 L (40.1-51.0) % MCV 86.5 (80.0-100.0) fL MCH 29.2 (25.0-34.0) pg MCHC 33.8 (32.0-36.0) g/dL RDW Std Deviation 46.6 H (36.4-46.3) fL RDW Coeff of Ilana 14.7 H (11.5-14.5) % Plt Count 223 (130-400) K/uL MPV 9.9 (9.4-12.4) fL Immature Gran % (Auto) 0.5 % Neut % (Auto) 73.6 % Lymph % (Auto) 17.2 % [place] % (Auto) 6.9 % Eos % (Auto) 1.4 % Baso % (Auto) 0.4 % Neut # (Auto) 6.82 H (1.4-6.5) K/uL Lymph # (Auto) 1.60 (1.2-3.4) K/uL [place] # (Auto) 0.64 (0.24-0.82) K/uL Eos # (Auto) 0.13 (0-0.50) K/uL Baso # (Auto) 0.04 (0-0.2) K/uL Immature Gran # (Auto) 0.05 H (0.00-0.02) K/uL PT 11.4 (9.0-12.0) Seconds INR 1.1 (0.9-1.1) APTT 26.9 (21.0-31.0) Seconds PTT Ratio 1.0 Sodium (136-145) mmol/L Potassium (3.5-5.1) mmol/L Chloride (98-107) mmol/L Carbon Dioxide (21-32) mmol/L Anion Gap (3-11) BUN (6-23) mg/dl Creatinine (0.6-1.4) mg/dl Est Cr Clr Drug Dosing Est GFR ( Amer) ml/min Est GFR (Non-Af Amer) ml/min BUN/Creatinine Ratio (10-20) Glucose (70-99(Fasting)) mg/dl Calcium (8.5-10.1) mg/dl Magnesium (1.7-2.4) mg/dl Total Bilirubin (0.2-1.0) mg/dl AST (13-39) U/L ALT (7-52) U/L Alkaline Phosphatase (34-104) U/L Troponin I High Sens (0-20) pg/ml Total Protein (6.0-8.3) gm/dl Albumin (3.4-5.0) gm/dl Globulin (2.5-4.0) gm/dl Albumin/Globulin Ratio (0.9-2) Urine Color Urine Appearance (Clear) Urine pH (4.5-7.5) Ur Specific [place] (1.000-1.030) Urine Protein (Negative) Urine Glucose (UA) (Negative) Urine Ketones (Negative) Urine Blood (Negative) Urine Nitrite (Negative) Urine Bilirubin (Negative) Urine Urobilinogen (Negative) Ur Leukocyte Esterase (Negative) Urine WBC (Auto) (0-5) /hpf Urine RBC (Auto) (0-4) /hpf U Hyaline Cast (Auto) (0-5) /lpf U Epithel Cells (Auto) (0-5) /lpf Urine Bacteria (Auto) (Negative) SARS-CoV-2, RNA, NAAT (NEGATIVE) Blood Type A Positive Antibody Screen NEGATIVE 02/27/22 02/27/22 02/27/22 Range/Units 18:37 19:15 20:12 WBC (4.8-10.8) K/ul RBC (4.63-6.08) M/uL Hgb (14.0-18.0) g/dl Hct (40.1-51.0) % MCV (80.0-100.0) fL MCH (25.0-34.0) pg MCHC (32.0-36.0) g/dL RDW Std Deviation (36.4-46.3) fL RDW Coeff of Ilana (11.5-14.5) % Plt Count (130-400) K/uL MPV (9.4-12.4) fL Immature Gran % (Auto) % Neut % (Auto) % Lymph % (Auto) % [place] % (Auto) % Eos % (Auto) % Baso % (Auto) % Neut # (Auto) (1.4-6.5) K/uL Lymph # (Auto) (1.2-3.4) K/uL [place] # (Auto) (0.24-0.82) K/uL Eos # (Auto) (0-0.50) K/uL Baso # (Auto) (0-0.2) K/uL Immature Gran # (Auto) (0.00-0.02) K/uL PT (9.0-12.0) Seconds INR (0.9-1.1) APTT (21.0-31.0) Seconds PTT Ratio Sodium 133 L (136-145) mmol/L Potassium 3.9 (3.5-5.1) mmol/L Chloride 98 (98-107) mmol/L Carbon Dioxide 26 (21-32) mmol/L Anion Gap 9 (3-11) BUN 34 H (6-23) mg/dl Creatinine 1.61 H (0.6-1.4) mg/dl Est Cr Clr Drug Dosing Not Reportable Est GFR ( Amer) 47.8 ml/min Est GFR (Non-Af Amer) 41.2 ml/min BUN/Creatinine Ratio 21.1 H (10-20) Glucose 247 H (70-99(Fasting)) mg/dl Calcium 8.3 L (8.5-10.1) mg/dl Magnesium 1.1 L (1.7-2.4) mg/dl Total Bilirubin 0.4 (0.2-1.0) mg/dl AST 15 (13-39) U/L ALT 14 (7-52) U/L Alkaline Phosphatase 125 H (34-104) U/L Troponin I High Sens 23.9 H (0-20) pg/ml Total Protein 6.2 (6.0-8.3) gm/dl Albumin 3.5 (3.4-5.0) gm/dl Globulin 2.7 (2.5-4.0) gm/dl Albumin/Globulin Ratio 1.3 (0.9-2) Urine Color Yellow Urine Appearance Clear (Clear) Urine pH 6.0 (4.5-7.5) Ur Specific [place] 1.023 (1.000-1.030) Urine Protein 1+ H (Negative) Urine Glucose (UA) Negative (Negative) Urine Ketones Negative (Negative) Urine Blood Negative (Negative) Urine Nitrite Negative (Negative) Urine Bilirubin Negative (Negative) Urine Urobilinogen Negative (Negative) Ur Leukocyte Esterase Negative (Negative) Urine WBC (Auto) 0 (0-5) /hpf Urine RBC (Auto) 0-4 (0-4) /hpf U Hyaline Cast (Auto) 0 (0-5) /lpf U Epithel Cells (Auto) 0-5 (0-5) /lpf Urine Bacteria (Auto) Negative (Negative) SARS-CoV-2, RNA, NAAT NEGATIVE (NEGATIVE) Blood Type Antibody Screen Administered Medications Acetaminophen (Acetaminophen 325 Mg Tab) 650 mg PO Q4H PRN PRN Reason: Pain or Fever Stop: 03/29/22 22:24 Last Admin: 02/27/22 23:26 Dose: 650 mg Documented By: DEMETRA Sodium Chloride (Nss 1000ml) 1,000 mls @ 75 mls/hr IV .[id number] [facility] Stop: 02/28/22 11:44 Last Admin: 02/27/22 22:31 Dose: 75 mls/hr Documented By: DEMETRA Insulin Aspart (Insulin Aspart Per Unit) 0 units SC ACHS [facility] Stop: 03/29/22 22:24 Last Admin: 02/27/22 23:23 Dose: 17 units Documented By: DEMETRA Co-signed By: LEE Insulin Glargine (Lantus Per Unit Charge) 40 units SQ HS [facility] Stop: 03/29/22 22:24 Last Admin: 02/27/22 23:23 Dose: 40 units Documented By: DEMETRA Co-signed By: LEE Discontinued Medications Carvedilol (Carvedilol 25 Mg Tab) 50 mg PO NOW ONE Stop: 02/27/22 19:15 Last Admin: 02/27/22 19:38 Dose: 50 mg Documented By: SAMM Sodium Chloride (Nss 1000ml) 500 mls @ 999 mls/hr IV .Q31M ONE Stop: 02/27/22 19:05 Last Infusion: 02/27/22 19:40 Dose: 0 mls/hr Documented By: Admin: 02/27/22 18:46 Dose: 999 mls/hr Documented By: CHAZ Magnesium Sulfate/Dextrose (Magnesium Sulfate / D5w) 1 gm in 100 mls @ 100 mls/hr IV Q1H MARYLOU Stop: 02/27/22 21:12 Last Infusion: 02/27/22 22:47 Dose: 0 mls/hr Documented By: Admin: 02/27/22 20:08 Dose: 100 mls/hr Documented By: Infusion: 02/27/22 20:08 Dose: 100 mls/hr Documented By: Admin: 02/27/22 19:25 Dose: 100 mls/hr Documented By: HALLIE Ioversol (Optiray 320 500ml) 108 ml IV ONCE ONE Stop: 02/27/22 18:28 Last Admin: 02/27/22 18:27 Dose: 108 ml Documented By: CARMINA Labetalol HCl (Labetalol Hcl Iv 5 Mg/Ml 20ml) 10 mg IV NOW STA Stop: 02/27/22 19:14 Last Admin: 02/27/22 19:21 Dose: 10 mg Documented By: HALLIE Co-signed By: GUILHERME Imaging Data Radiologist's Impression: Chest X-Ray 02/27/22 18:10 XR chest 1V portable HISTORY: Stroke like symptoms. COMPARISON: Chest 12/23/2021. FINDINGS: No pneumothorax. No pleural effusions. The cardiac silhouette remains mildly enlarged. There are poststernotomy changes. No evidence for pulmonary edema. No new focal lung consolidations to suggest a pneumonia. Small linear density at the left lung base favor subsegmental atelectasis or scarring. IMPRESSION: Mild cardiomegaly. Otherwise, no acute process within the chest. ACT 112: Negative or not required by law. Electronically signed by: Josh Manuel M.D. 02/27/2022 6:[address] 02/27/22 18:[address] DOSE: HISTORY: Stroke Like Symptoms TECHNIQUE: Multiaxial CT images of the head were performed without the use of intravenous contrast. Automated exposure control was utilized for this study. A dose lowering technique was utilized adhering to the principles of ALARA. Comparison: Head CT 12/23/2021. Findings: The paranasal sinuses and mastoid air cells are clear. The calvarium and skull base are intact. There is no mass, hematoma, midline shift, acute infarct. White matter hypodensity is nonspecific but suggestive of microvascular ischemic change. The ventricles and sulci demonstrate mild age-related involutional changes. Impression: No significant change compared to the prior study. No acute intracranial abnormality. ACT 112: Negative or not required by law. Electronically signed by: Josh Manuel M.D. 02/27/2022 6:47 PM Head CTA 02/27/22 18:10 HEAD & NECK CTA HISTORY: Stroke Like Symptoms TECHNIQUE: Multiaxial CT images of the head were performed following the intravenous administration of contrast to evaluate the major cerebral vessels. Multiaxial CT images of the neck were also performed following the intravenous administration of contrast to evaluate the major cervical vessels. Maximum intensity projection images were also obtained. A dose lowering technique was utilized adhering to the principles of ALARA. COMPARISON: None. FINDINGS: There is no mass, hematoma, midline shift, or acute infarct. Moderate calcified plaque within the bilateral carotid siphons without significant stenosis. There is moderate calcified plaque within the distal bilateral vertebral arteries resulting in 50% focal stenosis within the distal left vertebral artery. There is mild stenosis within the distal right vertebral artery. The basilar artery is widely patent. The bilateral ACAs, MCAs, and recreation professor show no significant stenosis, occlusion, aneurysm. The major dural venous sinuses appear patent. The aortic arch and proximal great vessels are widely patent. There is no significant stenosis, occlusion, or dissection identified within the bilateral common carotid, internal carotid, or vertebral arteries. A few prominent right paratracheal lymph nodes measuring up to 1 cm short axis diameter. Mild to moderate calcified plaque within the bilateral carotid bifurcations. IMPRESSION: 1. No significant stenosis, occlusion, or aneurysm within the [place]. 2. No significant stenosis, occlusion, or dissection identified within the common or internal carotid arteries. 3. Mild to moderate focal stenosis within the distal bilateral vertebral arteries due to the calcified plaque. 4. A few mildly enlarged right paratracheal lymph nodes measuring up to 1 cm in short axis diameter.. ACT 112: Negative or not required by law. Electronically signed by: Josh Manuel M.D. 02/27/2022 6:55 PM Neck CTA 02/27/22 18:10 HEAD & NECK CTA HISTORY: Stroke Like Symptoms TECHNIQUE: Multiaxial CT images of the head were performed following the intravenous administration of contrast to evaluate the major cerebral vessels. Multiaxial CT images of the neck were also performed following the intravenous administration of contrast to evaluate the major cervical vessels. Maximum intensity projection images were also obtained. A dose lowering technique was utilized adhering to the principles of ALARA. COMPARISON: None. FINDINGS: There is no mass, hematoma, midline shift, or acute infarct. Moderate calcified plaque within the bilateral carotid siphons without significant stenosis. There is moderate calcified plaque within the distal bilateral vertebral arteries resulting in 50% focal stenosis within the distal left vertebral artery. There is mild stenosis within the distal right vertebral artery. The basilar artery is widely patent. The bilateral ACAs, MCAs, and recreation professor show no significant stenosis, occlusion, aneurysm. The major dural venous sinuses appear patent. The aortic arch and proximal great vessels are widely patent. There is no significant stenosis, occlusion, or dissection identified within the bilateral common carotid, internal carotid, or vertebral arteries. A few prominent right paratracheal lymph nodes measuring up to 1 cm short axis diameter. Mild to moderate calcified plaque within the bilateral carotid bifurcations. IMPRESSION: 1. No significant stenosis, occlusion, or aneurysm within the [place]. 2. No significant stenosis, occlusion, or dissection identified within the common or internal carotid arteries. 3. Mild to moderate focal stenosis within the distal bilateral vertebral arteries due to the calcified plaque. 4. A few mildly enlarged right paratracheal lymph nodes measuring up to 1 cm in short axis diameter.. ACT 112: Negative or not required by law. Electronically signed by: Josh Manuel M.D. 02/27/2022 6:55 PM Discharge Plan Visit Data Chief Complaint: Stroke Alert Stated Complaint: STROKE SX ED Provider: Joseph Hair Discharge Problem: Difficulty with speech, Anemia, Stroke-like symptoms, Hypomagnesemia, Hypertension Patient Disposition: Admitted As Inpatient Condition: Fair Discharge Instructions Interventions: ED Discharge Assessment Last Done: 02/27/22 21:01
[~2022-02-27 18:33] MED LIST changes: -ALL300 PO; -AMLO10TA3 PO; -AMOX500C3 PO; -ATOR-26 PO; -CARV25TA2 PO; -CHOL2000 PO; -CLON0.3T PO; -CYAN100020 PO; -FERR325T5 PO; -FRS/80 PO; -GLIM4TAB PO; -LACT1LOT3; -LATA0.5S OP; -LEVO50TA6 PO; -LIDOCAINE HCL 2% 2 ML VIAL (20MG/ML) ONE; -LISI-461 PO; -MAGN400T6 PO; -ONDANSETRON INJ 2 MG/ML 2 ML VIAL IV PRN; +OPTIRAY 320 500ml IV ONE; -PIOG1TAB20 PO; -PRLSR20 PO; -PROPOFOL IV EMULSION 10 MG/ML 20 ML VIAL ONE; -SPIR25TA PO; -TRAM-10 PO
[2022-02-27] MEDS ORDERED: SODIUM CHLORIDE 0.9% 1000ML 500 ML IV ONE (18:35)
[2022-02-27 18:50] LABS: Basophils # (auto) 0.04 K/uL (0-0.2); Basophils % (auto) 0.4 %; Eosinophils # (auto) 0.13 K/uL (0-0.50); Eosinophils % (auto) 1.4 %; Hemoglobin 10.8 g/dl (14.0-18.0); Immature Granulocytes # (auto) 0.05 K/uL (0.00-0.02); Immature Granulocytes % (auto) 0.5 %; Lymphocytes % (auto) 17.2 %; Mean Corpuscular Hemoglobin 29.2 pg (25.0-34.0); Mean Corpuscular Hgb Conc 33.8 g/dL (32.0-36.0); Mean Corpuscular Volume 86.5 fL (80.0-100.0); Mean Platelet Volume 9.9 fL (9.4-12.4); Monocytes # (auto) 0.64 K/uL (0.24-0.82); Monocytes % (auto) 6.9 %; Neutrophils # (auto) 6.82 K/uL (1.4-6.5); Neutrophils % (auto) 73.6 %; Platelet Count 223 K/uL (130-400); RDW Coefficient of Variation 14.7 % (11.5-14.5); RDW Standard Deviation 46.6 fL (36.4-46.3); White Blood Count 9.28 K/ul (4.8-10.8)
--- NOTE | 2022-02-27 18:50 | CT Scan Report ---
HEAD CT NONCONTRAST CT DOSE: HISTORY: Stroke Like Symptoms TECHNIQUE: Multiaxial CT images of the head were performed without the use of intravenous contrast. A utomated exposure control was utilized for this study. A dose lowering technique was utilized adheri ng to the principles of ALARA. Comparison: Head CT 12/23/2021. Findings: The paranasal sinuses and mastoid air cells are clear. The calvarium and skull base are int act. There is no mass, hematoma, midline shift, acute infarct. White matter hypodensity is nonspecifi c but suggestive of microvascular ischemic change. The ventricles and sulci demonstrate mild age-rela edwin involutional changes. Impression: No significant change compared to the prior study. No acute intracranial abnormality. ACT 112: Negative or not required by law. Electronically signed by: Josh Manuel M.D. 02/27/2022 6:47 PM
--- NOTE | 2022-02-27 18:57 | CT Scan Report ---
HEAD & NECK CTA HISTORY: Stroke Like Symptoms TECHNIQUE: Multiaxial CT images of the head were performed following the intravenous administration o f contrast to evaluate the major cerebral vessels. Multiaxial CT images of the neck were also perform ed following the intravenous administration of contrast to evaluate the major cervical vessels. Maxim um intensity projection images were also obtained. A dose lowering technique was utilized adhering to the principles of ALARA. COMPARISON: None. FINDINGS: There is no mass, hematoma, midline shift, or acute infarct. Moderate calcified plaque within the isiah ateral carotid siphons without significant stenosis. There is moderate calcified plaque within the di stal bilateral vertebral arteries resulting in 50% focal stenosis within the distal left vertebral ar dilia. There is mild stenosis within the distal right vertebral artery. The basilar artery is widely p atent. The bilateral ACAs, MCAs, and certified massage therapist show no significant stenosis, occlusion, aneurysm. The shirley r dural venous sinuses appear patent. The aortic arch and proximal great vessels are widely patent. There is no significant stenosis, occ lusion, or dissection identified within the bilateral common carotid, internal carotid, or vertebral arteries. A few prominent right paratracheal lymph nodes measuring up to 1 cm short axis diameter. Mi ld to moderate calcified plaque within the bilateral carotid bifurcations. IMPRESSION: 1. No significant stenosis, occlusion, or aneurysm within the [place]. 2. No significant stenosis, occlusion, or dissection identified within the common or internal carotid arteries. 3. Mild to moderate focal stenosis within the distal bilateral vertebral arteries due to the calcifie d plaque. 4. A few mildly enlarged right paratracheal lymph nodes measuring up to 1 cm in short axis diameter.. ACT 112: Negative or not required by law. Electronically signed by: Josh Manuel M.D. 02/27/2022 6:55 PM
--- NOTE | 2022-02-27 18:57 | CT Scan Report ---
HEAD & NECK CTA HISTORY: Stroke Like Symptoms TECHNIQUE: Multiaxial CT images of the head were performed following the intravenous administration o f contrast to evaluate the major cerebral vessels. Multiaxial CT images of the neck were also perform ed following the intravenous administration of contrast to evaluate the major cervical vessels. Maxim um intensity projection images were also obtained. A dose lowering technique was utilized adhering to the principles of ALARA. COMPARISON: None. FINDINGS: There is no mass, hematoma, midline shift, or acute infarct. Moderate calcified plaque within the isiah ateral carotid siphons without significant stenosis. There is moderate calcified plaque within the di stal bilateral vertebral arteries resulting in 50% focal stenosis within the distal left vertebral ar dilia. There is mild stenosis within the distal right vertebral artery. The basilar artery is widely p atent. The bilateral ACAs, MCAs, and nursery hand show no significant stenosis, occlusion, aneurysm. The shirley r dural venous sinuses appear patent. The aortic arch and proximal great vessels are widely patent. There is no significant stenosis, occ lusion, or dissection identified within the bilateral common carotid, internal carotid, or vertebral arteries. A few prominent right paratracheal lymph nodes measuring up to 1 cm short axis diameter. Mi ld to moderate calcified plaque within the bilateral carotid bifurcations. IMPRESSION: 1. No significant stenosis, occlusion, or aneurysm within the [place] of [place]. 2. No significant stenosis, occlusion, or dissection identified within the common or internal carotid arteries. 3. Mild to moderate focal stenosis within the distal bilateral vertebral arteries due to the calcifie d plaque. 4. A few mildly enlarged right paratracheal lymph nodes measuring up to 1 cm in short axis diameter.. ACT 112: Negative or not required by law. Electronically signed by: Josh Manuel M.D. 02/27/2022 6:55 PM
--- NOTE | 2022-02-27 19:00 | XRay Report ---
XR chest 1V portable HISTORY: Stroke like symptoms. COMPARISON: Chest 12/23/2021. FINDINGS: No pneumothorax. No pleural effusions. The cardiac silhouette remains mildly enlarged. Ther e are poststernotomy changes. No evidence for pulmonary edema. No new focal lung consolidations to carney ggest a pneumonia. Small linear density at the left lung base favor subsegmental atelectasis or scarr ing. IMPRESSION: Mild cardiomegaly. Otherwise, no acute process within the chest. ACT 112: Negative or not required by law. Electronically signed by: Josh Manuel M.D. 02/27/2022 6:59 PM
[2022-02-27 19:08] LABS: INR 1.1 (0.9-1.1); Partial Thromboplastin Time 26.9 Seconds (21.0-31.0); Prothrombin Time 11.4 Seconds (9.0-12.0)
[2022-02-27 19:09] LABS: Alanine Aminotransferase 14 U/L (7-52); Albumin Globulin Ratio 1.3 (0.9-2); Albumin Level 3.5 gm/dl (3.4-5.0); Alkaline Phosphatase 125 U/L (34-104); Anion Gap 9 (3-11); Aspartate Aminotransferase 15 U/L (13-39); BUN Creatinine Ratio 21.1 (10-20); Bilirubin,Total 0.4 mg/dl (0.2-1.0); Blood Urea Nitrogen 34 mg/dl (6-23); Calcium 8.3 mg/dl (8.5-10.1); Carbon Dioxide 26 mmol/L (21-32); Chloride 98 mmol/L (98-107); Est GFR (African American) 47.8 ml/min; Est GFR (Non-African American) 41.2 ml/min; Globulin 2.7 gm/dl (2.5-4.0); Glucose 247 mg/dl (70-99(Fasting)); Magnesium 1.1 mg/dl (1.7-2.4); Potassium 3.9 mmol/L (3.5-5.1); Sodium 133 mmol/L (136-145); Total Protein 6.2 gm/dl (6.0-8.3)
[2022-02-27] MEDS ORDERED: LABETALOL HCL IV 5 MG/ML 20ML IV STA (19:13)
[2022-02-27] MEDS ORDERED: carvediloL 25 MG TAB PO ONE (19:14)
[2022-02-27 19:15] LABS: Troponin I High Sensitivity 23.9 pg/ml (0-20)
[2022-02-27] MEDS: MAGNESIUM SULFATE / D5W 1 GM/100 ML BAG IV SCH ×2 (19:25→20:08)
[2022-02-27 20:38] LABS: Appearance Urine Clear (Clear); Bacteria Urine Automated Negative (Negative); Bilirubin Urine Negative (Negative); Blood Urine Negative (Negative); Cast Urine Automated 0 /lpf (0-5); Color Urine Yellow; Epithelial Cell Urine Auto 0-5 /lpf (0-5); Glucose Urine UA Negative (Negative); Ketones Urine Negative (Negative); Leukocyte Esterase Urine Negative (Negative); Nitrite Urine Negative (Negative); Protein Urine 1+ (Negative); RBC Urine Automated 0-4 /hpf (0-4); Specific Gravity Urine 1.023 (1.000-1.030); Urobilinogen Urine Negative (Negative); WBC Urine Automated 0 /hpf (0-5)
[2022-02-27] MEDS ORDERED: LANTUS PER UNIT CHARGE SQ SCH (22:25)
[2022-02-27] MEDS ORDERED: POLYETHYLENE (MIRALAX) 17 GM PACK PO PRN (22:25)
[2022-02-27] MEDS ORDERED: NITROGLYCERIN SL 0.4 MG/TAB TAB SL PRN (22:25)
[2022-02-27] MEDS ORDERED: SODIUM CHLORIDE 0.9% 1000ML 1,000 ML IV SCH (22:25)
[2022-02-27] MEDS ORDERED: ACETAMINOPHEN 325 MG TAB PO PRN (22:25)
[2022-02-27] MEDS ORDERED: LATANOPROST 0.005% OP SOLN 2.5 ML BTL OPB SCH (22:25)
[2022-02-27] MEDS ORDERED: PHARMACIST DISCHARGE MED REC CONSULT PRN (22:25)
[2022-02-27] MEDS ORDERED: ATORVASTATIN 40 MG TAB PO SCH (22:25)
[2022-02-27] MEDS ORDERED: FERROUS SULFATE 325 MG TAB PO SCH (22:25)
[2022-02-27] MEDS ORDERED: LABETALOL HCL IV 5 MG/ML 20ML IV PRN (22:25)
--- NOTE | 2022-02-27 22:48 | History and Physical Report ---
DATE OF ADMISSION: 02/27/2022 CHIEF COMPLAINT: Stroke-like symptoms. HISTORY OF PRESENT ILLNESS: A 76-year-old male with past medical history significant for type 2 diabetes, diabetic polyneuropathy, peripheral artery disease, hypothyroidism, chronic gout, obstructive sleep apnea, on BiPAP; chronic diastolic CHF, hypertension, history of CVA, history of Fajardo's esophagus, obesity, BPH, chronic kidney disease stage III, venous stasis dermatitis of both lower extremities, presents with stroke-like symptoms. The patient lives with his . The patient went to a nap and seems cat jumped on him and as he was not waking up, tried to wake him up. He woke up but was not able to speak and he could not understand what the was speaking. She called their son and he was not improving, and EMS was called. The patient says, while he was in the ambulance, he was able to talk. Stroke alert was called. When the stroke alert doctor saw the patient, the patient was back to his baseline and also he had history of significant bleeding for any blood thinners, ASPIRIN or COUMADIN in the past and deemed not a candidate for TPA as per ER.. and the patient do not want patient to take aspirin or any blood thinners because of bleeding risk Patient says he ambulated himself to the bathroom in the ER.Hemodynamics are stable. Blood pressure running somewhat on the higher side. Received a dose of labetalol in the ER and also his home Coreg. His magnesium was low at 1.1, received replacement in the ER. Has a mild headache. No dizziness, no double vision, no earache, no runny nose, no sore throat, no cough, no difficulty swallowing. No fevers, having some chills. Denies any chest pain, no shortness of breath, no nausea, no abdominal pain. Normal bowel and bladder movements. No blood in the stools. thinks since he has started on Ozempic in September, he is having similar kind of symptoms. In December patient was in the hospital with dizziness and stroke workup was negative and his sugars are now running somewhat high at home and as per the patient his doctor was planning to increase his Ozempic dose, but the thinks ozempic is causing these symptoms. ALLERGIES: ASPIRIN AND WARFARIN. PAST MEDICAL HISTORY: As mentioned above. PAST SURGICAL HISTORY: Aorta repair, left knee arthroplasty, colonoscopy, colonoscopy with biopsy, EGDs, left knee replacement, appendectomy, aortic valve replacement with prosthetic valve. MEDICATIONS: The patient is on allopurinol 300 mg p.o. a.m., atorvastatin 80 mg p.o. a.m., Coreg 50 mg p.o. b.i.d., vitamin D 2000 units p.o. a.m., clonidine 0.2 mg p.o. b.i.d., vitamin B12 1000 mcg p.o. daily, ferrous sulfate 325 mg p.o. a.m., Lasix 80 mg in a.m. and 40 mg in p.m., insulin Tresiba 40 units subcutaneous at bedtime, Xalatan one drop ophthalmic in p.m., levothyroxine 50 mcg p.o. a.m., losartan 100 mg p.o. daily, magnesium oxide 400 mg p.o. a.m., metformin 500 mg p.o. b.i.d., omeprazole 20 mg p.o. a.m. FAMILY HISTORY: Significant for mother of lung cancer and CT at age of 53, maternal grandfather had CT and at age 67; maternal grandmother of CT at age of 69. Uncle had CT. SOCIAL HISTORY: , former smoker, quit in 1976, smoked 1 pack a day for 30 years. No alcohol, no drug use. REVIEW OF SYSTEMS: As per HPI. Rest of the review of systems is negative. PHYSICAL EXAMINATION: GENERAL: The patient is of moderate build, not in acute distress. VITAL SIGNS: Temperature 36.7, pulse 86, respiratory rate 18, blood pressure 150/100 currently, oxygen 97% on room air. HEENT: Pupils equal, round and reactive to light. Extraocular muscles intact. Head is atraumatic. No facial droop, no tongue deviation. Speech is clear. Oral mucosa moist. NECK: No JVD, no neck masses. CARDIOVASCULAR: S1 and S2 heard. Regular rate and rhythm. No murmur, no gallop. RESPIRATORY SYSTEM: Normal AP diameter. No accessory muscle use. No wheezing, no crackles. ABDOMEN: Soft, bowel sounds present, nontender, no distention. CENTRAL NERVOUS SYSTEM: Alert and oriented. Extraocular muscles intact. Speech is clear. No facial droop, no tongue deviation. Power 5/5 in all extremities. Coordination of movements normal. No pronator drift. Sensation is intact. EXTREMITIES: Mild pedal edema present, no erythema seen. LABORATORY DATA: WBC 9.2, hemoglobin 10.8, hematocrit 32, platelets 223. PT 11.4, INR 1.1, APTT 26.9. Sodium 133, potassium 3.9, chloride 98, bicarbonate 26, BUN 34, creatinine 1.6, serum glucose 247, calcium 8.3, magnesium 1.1, total bilirubin 0.4, AST 50, ALT 14, alkaline phosphatase 125. Troponin I high sensitivity 23. Urinalysis negative. IMAGING DATA: CTA of the head and neck unremarkable. CT of the head, no acute findings. Chest x-ray, no acute findings. EKG: Undetermined rhythm at a rate of 78, nonspecific T-wave abnormalities. ASSESSMENT AND PLAN: A 76-year-old male presents with stroke-like symptoms. 1. Stroke-like symptoms. According to , the patient was not speaking when he woke up from his nap at 4 p.m., which lasted until EMS came. Currently back to his baseline. Initial workup with CTA of the head and neck and CT of the head is unremarkable. The patient has ASPIRIN allergy. The patient is having bleeding risk for ASPIRIN or any blood thinners and declining any aspirin or Plavix. We will admit to the hospital for tele floor for stroke workup. We will do MRI scan, echo and neuro consult in a.m. speech evaluation, PT, OT evaluation. Closely monitor in tele. Allow for permissive hypertension. 2. Hypertension. Continue home medication of losartan, Coreg, clonidine and diuretics. Monitor his blood pressure. 3. History of chronic kidney disease, stage III: Present creatinine of 1.3, seems at baseline. Continue home diuretics. 4. History of gout: On allopurinol. 5. History of sleep apnea: On BiPAP. 6. Peripheral artery disease, on statin. 7. History of Fajardo's esophagus. On omeprazole. 8. History of hypothyroidism: On Synthroid. 9. Hypomagnesemia, replaced. Continue home medication of magnesium oxide. Follow the labs in a.m. 10. Diabetes: Continue home insulin. Place on sliding scale. Follow the blood sugars, follow HbA1c levels. 11. Mild elevation of troponin, most likely demand ischemia. Follow serial enzymes. Getting an echocardiogram as per stroke protocol. 12. Chronic diastolic congestive heart failure. Continue his home Lasix and Coreg and losartan. Monitor for any volume overload. 13. History of prosthetic aortic valve replacement in 2009. 14. Hyperlipidemia: On statin. 15. Chronic iron deficiency anemia, baseline hemoglobin 10. We will follow the labs. Iron supplement and B12 supplement. 16. Deep venous thrombosis prophylaxis: We will place him on sequential compression devices for now. DISPOSITION: Full code. Admit to tele floor. PT/OT. Expect to discharge home and follow up with family doctor. Job ID: [id number] [facility], [place]
[2022-02-27] MEDS ORDERED: DEXTROSE 50% 50 ML SYRINGE IV PRN (23:00)
[2022-02-27] MEDS ORDERED: GLUCOSE 40% GEL 15 GM TUBE PO PRN (23:00)
[2022-02-27] MEDS ORDERED: GLUCAGON FOR INJ 1 MG VIAL IM PRN (23:00)
[2022-02-27] MEDS ORDERED: CARBOHYDRATES FOR HYPOGLYCEMIA PO PRN (23:00)
[2022-02-27] MEDS ORDERED: GLUCOSE 10 TAB/TUBE PO PRN (23:00)
[2022-02-27] MEDS ORDERED: INSULIN HUMAN REGULAR PER UNIT 5 UNITS in SYRINGE 0 ML IV STA (23:09)
[2022-02-27] MEDS: INSULIN ASPART PER UNIT SC SCH (23:23)
[2022-02-27] MEDS: cloNIDine HCL 0.1 MG TAB PO SCH (23:40)
[2022-02-27] MEDS: FUROSEMIDE 40 MG TAB PO SCH (23:41)
[2022-02-28 05:49] LABS: Basophils # (auto) 0.06 K/uL (0-0.2); Basophils % (auto) 0.7 %; Eosinophils # (auto) 0.11 K/uL (0-0.50); Eosinophils % (auto) 1.2 %; Hematocrit (blood only) 31.7 % (40.1-51.0); Hemoglobin 10.5 g/dl (14.0-18.0); Immature Granulocytes # (auto) 0.06 K/uL (0.00-0.02); Immature Granulocytes % (auto) 0.7 %; Lymphocytes # (auto) 1.82 K/uL (1.2-3.4); Lymphocytes % (auto) 19.8 %; Mean Corpuscular Hemoglobin 28.5 pg (25.0-34.0); Mean Corpuscular Hgb Conc 33.1 g/dL (32.0-36.0); Mean Corpuscular Volume 86.1 fL (80.0-100.0); Mean Platelet Volume 10.3 fL (9.4-12.4); Monocytes # (auto) 0.66 K/uL (0.24-0.82); Monocytes % (auto) 7.2 %; Neutrophils # (auto) 6.49 K/uL (1.4-6.5); Neutrophils % (auto) 70.4 %; Platelet Count 236 K/uL (130-400); RDW Coefficient of Variation 14.7 % (11.5-14.5); RDW Standard Deviation 46.5 fL (36.4-46.3); Red Blood Count 3.68 M/uL (4.63-6.08)
[2022-02-28 06:04] LABS: BUN Creatinine Ratio 20.7 (10-20); Calcium 8.6 mg/dl (8.5-10.1); Chol HDL Ratio 5.8 (0-5); Creatinine Clr Calc Pharmacy 47.4 ml/min; Est GFR (African American) 46.7 ml/min; Est GFR (Non-African American) 40.3 ml/min; Potassium 3.5 mmol/L (3.5-5.1)
[2022-02-28 06:09] LABS: Troponin I High Sensitivity 33.5 pg/ml (0-20)
[2022-02-28] MEDS ORDERED: LEVOTHYROXINE SODIUM 50 MCG TABLET PO SCH (06:30)
[2022-02-28] MEDS: INSULIN ASPART PER UNIT SC SCH ×2 (08:55→13:09)
[2022-02-28] MEDS: cloNIDine HCL 0.1 MG TAB PO SCH (08:56)
--- NOTE | 2022-02-28 08:56 | Electrocardiogram Report ---
Test Reason : Blood Pressure : / mmHG Vent. Rate : 078 BPM Atrial Rate : 078 BPM P-R Int : 000 ms QRS Dur : 078 ms QT Int : 372 ms P-R-T Axes : 000 049 128 degrees QTc Int : 424 ms Sinus rhythm with 1st degree A-V block with frequent Premature atrial complexes Diffuse Nonspecific T wave abnormality Abnormal ECG When compared with ECG of 23-DEC-2021 12:02, Nonspecific T wave abnormality now evident in Inferior leads Nonspecific T wave abnormality improved in lateral leads Confirmed by Aki Ramirez ([id number]) on 02/28/2022 8:55:54 AM Referred By: REFERRED SELF Confirmed By:Aki Ramirez
[2022-02-28] MEDS ORDERED: LOSARTAN POTASSIUM 50 MG TAB PO SCH (09:00)
[2022-02-28] MEDS ORDERED: FUROSEMIDE 80 MG TAB PO SCH (09:00)
[2022-02-28] MEDS ORDERED: MAGNESIUM OXIDE 400 MG TAB PO SCH (09:00)
[2022-02-28] MEDS ORDERED: CYANOCOBALAMIN (B-12) 500 MCG TABLET PO SCH (09:00)
[2022-02-28] MEDS ORDERED: PANTOprazole 40 MG TAB PO SCH (09:00)
[2022-02-28] MEDS ORDERED: allopurinoL 300 MG TAB PO SCH (09:00)
[2022-02-28] MEDS ORDERED: carvediloL 25 MG TAB PO SCH (09:00)
[2022-02-28] MEDS ORDERED: CHOLECALCIFEROL 1,000 UNITS 25 MCG TAB PO SCH (09:00)
[2022-02-28] MEDS ORDERED: GADOBUTROL 10ML VIAL IV ONE (09:41)
--- NOTE | 2022-02-28 10:14 | Magnetic Resonance Report ---
MR brain wo/w con HISTORY: 76 years-old Male stroke like symptoms acute strokelike symptoms COMPARISON: Head CT 02/27/2022, brain MRI 12/23/2021 TECHNIQUE: Multiplanar multisequence MRI of the brain was obtained both with and without the use of 1 0 mL Gadavist FINDINGS: No restricted diffusion to suggest acute or subacute infarct. Midline structures appear unremarkable. Degenerative changes of the imaged cervical spine. No acute intracranial hemorrhage, midline shift, abnormal extra axial collection, hydrocephalus or intracranial mass. Age-related involutional changes . Moderate T2/FLAIR hyperintense foci are noted throughout the white matter. There is suggested glios is of the left occipital lobe which may represent a chronic infarct. Chronic lacunar infarcts of the cerebellum. No abnormal enhancement. Cerebral venous sinuses and major arterial flow voids appear patent. Skull, orbits and soft tissues a re unremarkable. Prior bilateral lens repair. IMPRESSION: 1. No acute intracranial abnormality. No acute or subacute infarct. 2. No abnormal enhancement. ACT 112: Negative or not required by law. The above report was generated using voice recognition software. It may contain grammatical, syntax o r spelling errors. Electronically signed by: Priyank Guadarrama M.D. 02/28/2022 10:13 AM
--- NOTE | 2022-02-28 11:46 | Hospitalist Progress Note ---
Date of Service February 28, 2022 Assessment & Plan (1) TIA (transient ischemic attack): Plan: Patient had a recurrence of strokelike symptoms lasting approximately 30 minutes last month and again yesterday. He also had an associated headache yesterday that is lasted him through till today. Headaches are abnormal for him. He did recently start Ozempic a few months ago but otherwise has no medication changes. Overnight he was continued on his Lipitor 80 mg but was not given any aspirin or Plavix or DVT. Prophylaxis because of a significant concern on the patient's part for having blood in the past with aspirin plus warfarin. He denies any significant allergy to aspirin but is afraid to take it secondary to bleeding. He also has ongoing iron deficiency anemia and takes iron supplementation. He reports multiple EGDs and C-scope's in the past with no clear source of bleed. We discussed the importance of antiplatelet therapy for secondary prophylaxis in the situation. Will defer to neurologist to outline additional pros and cons and decide appropriate care moving forward. Echocardiogram ordered this morning, awaiting read however this will not hold up his discharge as he recently had an echo last month. He has remained in normal sinus rhythm overnight on telemetry. All symptoms have resolved and he is ambulating and mentating at baseline. (2) Hypertension: Plan: Chronic, stable. Continue current medications including carvedilol clonidine and Lasix. (3) S/P AVR (aortic valve replacement): Plan: Murmur heard on exam. Euvolemic and asymptomatic. (4) KOLE (iron deficiency anemia): Plan: Chronic, stable. Patient is still anemic with a hemoglobin of 10. No active bleeding. Continue iron supplementation per outpatient regimen. (5) Hypothyroidism: Plan: Recently TSH was checked to and was 5.2. Continue thyroid supplementation without changes. (6) DVT prophylaxis: Plan: SCDs as patient has concerns about bleeding with any additional blood thinners., Ambulatory Full code Disposition-to home today after evaluation by neurologist with definitive recommendations. Jannette Vick DO [facility] Hospitalist Admission and Anticipated Discharge Date Admission Date: February 27, 2022 Subjective 76 yo M presented with recurring expressive aphasia and headache. Imaging overnight negative. Echo this am pending but recently had an echo in Dec that looked good with preserved EF. Ate hoagie, was watching tV and went to sleep. couldn't wake him up. Son came over and was able to wake him up successfully. Patient states that he was clear and was able to speak. Had a headache all day yesterday and has a residual ROGERS today above his temples on both side (worse with coughing because of pressure). Doesn't normally have headaches. Reports expressive aphasia and family mentioned that he was slurring his words. This also happened in December 2021. Symptoms resolved in 30 minutes. Review of Systems Review of Systems: All systems were reviewed and negative except as indicated above. Physical Exam Physical Exam: CONSTITUTIONAL: WNWD, vitals as above, generally well- appearing, NAD EYES: EOMI bilaterally, PERRL, normal conjunctivae, no scleral icterus ENT: external ear and nose normal, oropharynx clear, MMM NECK: trachea midline, no lymphadenopathy, normal thyroid RESPIRATORY: clear to auscultation bilaterally, no crackles, rales or wheezes, normal respiratory effort CARDIOVASCULAR: regular rate and rhythm, 3/6 VANESSA,no gallops or rubs, no JVD, no peripheral edema CHEST: inspection of chest was normal GASTROINTESTINAL: soft, nontender, ND, no guarding MUSCULOSKELETAL: strength 5/5 throughout (upper and lower extremities, 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 Euthymic mood, makes good eye contact, language grossly intact, recent and remote memory grossly intact. Results & Data Results & Data ([facility]) Vital Signs (Past 12 Hours) Vital Signs Temp Pulse Pulse Resp BP Pulse Ox O2 Del Method 02/28/22 08:00 77 02/28/22 07:24 36.7 C 75 16 113/68 98 Room Air 02/28/22 04:05 37.3 C 82 20 108/61 97 BiPAP 02/28/22 00:05 91 H Laboratory Results Short CBC 02/27/22 02/28/22 Range/Units 18:37 05:17 WBC 9.28 9.20 (4.8-10.8) K/ul Hgb 10.8 L 10.5 L (14.0-18.0) g/dl Hct 32.0 L 31.7 L (40.1-51.0) % Plt Count 223 236 (130-400) K/uL BMP 02/27/22 02/28/22 18:37 05:17 Sodium 133 L 135 L Potassium 3.9 3.5 Chloride 98 101 Carbon Dioxide 26 26 BUN 34 H 34 H Creatinine 1.61 H 1.64 H Glucose 247 H 140 H Calcium 8.3 L 8.6 Liver Function 02/27/22 Range/Units 18:37 Total Bilirubin 0.4 (0.2-1.0) mg/dl AST 15 (13-39) U/L ALT 14 (7-52) U/L Alkaline Phosphatase 125 H (34-104) U/L Albumin 3.5 (3.4-5.0) gm/dl Urine 02/27/22 Range/Units 20:12 Urine Color Yellow Urine Appearance Clear (Clear) Urine pH 6.0 (4.5-7.5) Ur Specific [place] 1.023 (1.000-1.030) Urine Protein 1+ H (Negative) Urine Glucose (UA) Negative (Negative) Diagnostic Findings Brain MRI 02/28/22 22:25 MR brain wo/w con HISTORY: 76 years-old Male stroke like symptoms acute strokelike symptoms COMPARISON: Head CT 02/27/2022, brain MRI 12/23/2021 TECHNIQUE: Multiplanar multisequence MRI of the brain was obtained both with and without the use of 10 mL Gadavist FINDINGS: No restricted diffusion to suggest acute or subacute infarct. Midline structures appear unremarkable. Degenerative changes of the imaged cervical spine. No acute intracranial hemorrhage, midline shift, abnormal extra axial collection, hydrocephalus or intracranial mass. Age-related involutional changes. Moderate T2/FLAIR hyperintense foci are noted throughout the white matter. There is suggested gliosis of the left occipital lobe which may represent a chronic infarct. Chronic lacunar infarcts of the cerebellum. No abnormal enhancement. Cerebral venous sinuses and major arterial flow voids appear patent. Skull, orbits and soft tissues are unremarkable. Prior bilateral lens repair. IMPRESSION: 1. No acute intracranial abnormality. No acute or subacute infarct. 2. No abnormal enhancement. ACT 112: Negative or not required by law. The above report was generated using voice recognition software. It may contain grammatical, syntax or spelling errors. Electronically signed by: Priyank Guadarrama M.D. 02/28/2022 10:13 AM Medications Administered Current Inpatient Medications Acetaminophen (Acetaminophen 325 Mg Tab) 650 mg PO Q4H PRN PRN Reason: Pain or Fever Stop: 03/29/22 22:24 Last Admin: 02/27/22 23:26 Dose: 650 mg Allopurinol (Allopurinol 300 Mg Tab) 300 mg PO QAM MARYLOU Stop: 03/30/22 08:59 Last Admin: 02/28/22 08:56 Dose: 300 mg Atorvastatin Calcium (Atorvastatin 40 Mg Tab) 80 mg PO QPM MARYLOU Stop: 03/29/22 22:24 Last Admin: 02/27/22 23:39 Dose: 80 mg Carvedilol (Carvedilol 25 Mg Tab) 50 mg PO BID MARYLOU Stop: 03/30/22 08:59 Last Admin: 02/28/22 08:56 Dose: 50 mg Clonidine HCl (Clonidine Hcl 0.1 Mg Tab) 0.2 mg PO BID MARYLOU Stop: 03/29/22 22:24 Last Admin: 02/28/22 08:56 Dose: 0.2 mg Cyanocobalamin (Cyanocobalamin (B-12) 500 Mcg Tablet) 1,000 mcg PO QAM MARYLOU Stop: 03/30/22 08:59 Last Admin: 02/28/22 08:56 Dose: 1,000 mcg Dextrose (Dextrose 50% 50 Ml Syringe) 25 - 50 ml IV UD PRN; Protocol PRN Reason: Hypoglycemia Protocol Stop: 03/29/22 22:59 Ferrous Sulfate (Ferrous Sulfate 325 Mg Tab) 325 mg PO QPM MARYLOU Stop: 03/29/22 22:24 Last Admin: 02/27/22 23:39 Dose: 325 mg Furosemide (Furosemide 80 Mg Tab) 80 mg PO QAM MARYLOU Stop: 03/30/22 08:59 Last Admin: 02/28/22 08:57 Dose: 80 mg Furosemide (Furosemide 40 Mg Tab) 40 mg PO DAILY@1400 MARYLOU Stop: 03/29/22 22:24 Last Admin: 02/27/22 23:41 Dose: 40 mg Glucagon (Glucagon For Inj 1 Mg Vial) 1 mg IM UD PRN; Protocol PRN Reason: Hypoglycemia Protocol Stop: 03/29/22 22:59 Glucose (Glucose 40% Gel 15 Gm Tube) 15 - 30 gm PO UD PRN; Protocol PRN Reason: Hypoglycemia Protocol Stop: 03/29/22 22:59 Glucose (Glucose 10 Tab/Tube) 4 - 8 tab PO UD PRN; Protocol PRN Reason: Hypoglycemia Protocol Stop: 03/29/22 22:59 Insulin Aspart (Insulin Aspart Per Unit) 0 units SC ACHS [facility] Stop: 03/29/22 22:24 Last Admin: 02/28/22 08:55 Dose: Not Given Insulin Glargine (Lantus Per Unit Charge) 40 units SQ HS MARYLOU Stop: 03/29/22 22:24 Last Admin: 02/27/22 23:23 Dose: 40 units Labetalol HCl (Labetalol Hcl Iv 5 Mg/Ml 20ml) 10 mg IV Q4H PRN PRN Reason: Hypertension Stop: 03/29/22 22:24 Latanoprost (Latanoprost 0.005% Op Soln 2.5 Ml Btl) 1 drops OPB PM [facility] Stop: 03/29/22 22:24 Last Admin: 02/27/22 23:38 Dose: 1 drops Levothyroxine Sodium (Levothyroxine Sodium 50 Mcg Tablet) 50 mcg PO DAILYBB [facility] Stop: 03/30/22 06:29 Last Admin: 02/28/22 07:35 Dose: 50 mcg Losartan Potassium (Losartan Potassium 50 Mg Tab) 100 mg PO DAILY [facility] Stop: 03/30/22 08:59 Last Admin: 02/28/22 08:57 Dose: 100 mg Magnesium Oxide (Magnesium Oxide 400 Mg Tab) 400 mg PO QAM [facility] Stop: 03/30/22 08:59 Last Admin: 02/28/22 08:57 Dose: 400 mg Miscellaneous (Carbohydrates For Hypoglycemia ) 15 - 30 gm PO UD PRN PRN Reason: Hypoglycemia Treatment Stop: 03/29/22 22:59 Miscellaneous Information (Pharmacist Discharge Med Rec Consult) 1 each N/A UD PRN PRN Reason: Consult Stop: 03/29/22 22:24 Nitroglycerin (Nitroglycerin Sl 0.4 Mg/Tab Tab) 0.4 mg SL UD PRN PRN Reason: Chest Pain Stop: 03/29/22 22:24 Pantoprazole Sodium (Pantoprazole 40 Mg Tab) 40 mg PO QAM [facility] Stop: 03/30/22 08:59 Last Admin: 02/28/22 08:57 Dose: 40 mg Polyethylene Glycol (Polyethylene (Miralax) 17 Gm Pack) 17 gm PO DAILY PRN PRN Reason: Constipation Stop: 03/29/22 22:24 Vitamin D (Cholecalciferol 1,000 Units 25 Mcg Tab) [facility] [place] Stop: 03/30/22 08:59 Last Admin: 02/28/22 08:56 Dose: 2,000 units (1) Hypertension Hypertension type: unspecified Qualified Code(s): I10 - Essential (primary) hypertension
[2022-02-28] MEDS: FUROSEMIDE 40 MG TAB PO SCH (15:02)
--- NOTE | 2022-02-28 16:54 | Neurology Consultation ---
Date of Consultation February 28, 2022 Assessment & Plan (1) Stroke-like symptoms: Impression: The patient was sleep deprived prior night, and yesterday, while he was getting damp without using CPAP, he could not wake up easily. They noticed some speech disturbance, which lasted for 30 minutes or so. In emergency department, he was back to his baseline. Stroke work-up including brain MRI have been unremarkable. The patient denies having stroke symptoms in the past other than one episode of dizziness and confusion in December 2021, which was considered to be TIA. The patient had gastrointestinal bleed while he was on combination of Coumadin and aspirin. The recent event was likely due to sleep deprivation and being in deep sleep. TIA is still in differential. Plan/recommendations: We will start patient on Plavix and 5 mg daily. If the patient experiences any GI bleed, then he will stop using this medication. He will stay on Lipitor as before. Blood pressure control. Goal blood pressure is below 130/80. Management of diabetes mellitus which is another stroke risk factor. He is neurologically stable and can be discharged home. Follow-up with neurology clinic. I will inform [facility] neurology for follow-up appointment. (2) Diabetes mellitus, type 2: (3) S/P AVR (aortic valve replacement): (4) Hypertension: (5) HLD (hyperlipidemia): (6) YOON on CPAP: (7) Paresthesia of hand, bilateral: Impression: The patient reports having episodic hand paresthesias, typically after using his hands, or after night sleep, suggestive of entrapment neuropathies as seen in carpal tunnel syndrome. Plan: Neurology clinic follow-up with EMG nerve conduction study. Plan Thank you for the consultation. History of Present Illness Reason for Consultation: Speech disturbance Requesting Physician: Jannette Vick DO Attending Physician: Jannette Vick DO History of Present Illness The patient is a 76-year-old very pleasant gentleman, who presents to the emergency department yesterday after he had an episode of confusion and speech disturbance. Prior night, the patient could not sleep well because of headache. Yesterday, he was sleep-deprived, and had a nap without using CPAP machine. When his cat jumped on him, he did not wake up as usual. His worried about him, and tried to wake him up, but he was not awakening completely. They tried to talk to him but he was not answering normally. Eventually, they called EMS. When they arrived, the patient was still having some speech disturbance even he was awake then. In emergency department, his speech was back to his baseline and he has not had any other neurological symptoms. The patient was not considered a candidate for thrombolytic treatment based on improvement of neurological symptoms. Head CT, CTA angiography of head and neck were unremarkable other than atherosclerotic mild to moderate stenosis of vertebral arteries. The patient was admitted to hospital for stroke work-up. Lipid panel showed LDL level than 70. Echocardiogram was unremarkable. Telemetry monitoring has shown sinus rhythm. The patient has stayed symptom-free. He reports having an episode with dizziness and some confusion in December 2021, which was considered a TIA. Otherwise, he denies having any stroke symptoms in the past. He has obstructive sleep apnea and uses CPAP, only during night sleeps. In the past, he had gastrointestinal bleeding, while he was on warfarin and aspirin together. Both medications were included in allergies. However, the patient was not on aspirin only with GI side effects. He is worrying about using aspirin. Today, we have talked about other alternatives including Plavix. He understood that when he had GI bleed, he was on combination of blood thinners, and possibility of similar hemorrhagic complication is reasonably low on Plavix. He is in agreement with starting on Plavix. Today, he also reports having intermittent hand paresthesias. He denies any sensory symptoms in distal lower extremities. He has long history of diabetes mellitus. Since admission, brain MRI was done, which did not show any acute intracranial pathology including cerebrovascular accident. I have reviewed the patient's chart including imaging studies and discussed the case with the patient and answer his questions in detail. Allergies Allergy/AdvReac Type Severity Reaction Status Date / Time aspirin AdvReac Severe gi bleed Verified 02/27/22 19:32 warfarin AdvReac Severe "bleeding Verified 02/27/22 19:32 with anticoagulants" Home Medications Medication Instructions Recorded Confirmed Type allopurinol 300 mg tablet 300 mg PO QAM 09/06/18 02/27/22 History atorvastatin 80 mg tablet 80 mg PO QPM 09/06/18 02/27/22 History carvedilol 25 mg tablet 50 mg PO BID 09/06/18 02/27/22 History cholecalciferol (vitamin D3) 50 2,000 unit PO QAM 09/06/18 02/27/22 History mcg (2,000 unit) tablet cyanocobalamin (vitamin B-12) 1,000 mcg PO QAM 09/06/18 02/27/22 History 1,000 mcg tablet (Vitamin B-12) ferrous sulfate 325 mg (65 mg 325 mg PO QPM 09/06/18 02/27/22 History iron) tablet furosemide 80 mg tablet 80 mg PO QAM 09/06/18 02/27/22 History latanoprost 0.005 % eye drops 1 drp OPB PM 09/06/18 02/27/22 History (Xalatan) levothyroxine 50 mcg tablet 50 mcg PO QAM 09/06/18 02/27/22 History magnesium oxide 400 mg PO QAM 09/06/18 02/27/22 History furosemide 40 mg tablet (Lasix) 40 mg PO QPM #30 tabs 12/20/20 02/27/22 Rx insulin degludec 100 unit/mL (3 40 unit subcut HS 12/23/21 02/27/22 History mL) subcutaneous pen (Tresiba FlexTouch U-100 insulin) metformin 500 mg tablet 500 mg PO BIDM 12/23/21 02/27/22 History clonidine HCl 0.2 mg tablet 0.2 mg PO BID 02/27/22 02/27/22 History losartan 100 mg tablet 100 mg PO DAILY 02/27/22 02/27/22 History omeprazole 20 mg capsule,delayed 20 mg PO QAM 02/27/22 02/27/22 History release semaglutide 0.25 mg or 0.5 mg (2 0.5 mg subcut WK 02/28/22 02/28/22 History mg/1.5 mL) subcutaneous pen injector (Ozempic) Patient History Medical History Fajardo esophagus Barretts esophagus Cardiac murmur Chronic diastolic heart failure Chronic iron deficiency anemia Chronic kidney disease, stage 3 Colon polyps Degenerative disc disease Diabetes mellitus, type 2 Dizziness DM2 (diabetes mellitus, type 2) Elevated troponin GERD (gastroesophageal reflux disease) GI bleed 2009 d/t coumadin use Glaucoma of both eyes Gout Hearing deficit History of first degree AV block Hyperlipidemia Hypertension Hypertension Hypothyroidism On home oxygen therapy 2.5L at night YOON treated with BiPAP Osteoarthritis Sleep apnea bipap with 2.5L oxygen Stroke-like symptom Surgical History H/O aortic valve repair History of aortic valve replacement 2009 [place] [facility] [place] of appendectomy History of arthroscopy of left knee x2 History of arthroscopy of right knee History of bilateral cataract extraction History of cardiac cath 2009 @ [facility] no stents History of colonoscopy History of esophagogastroduodenoscopy (EGD) History of tooth extraction all upper teeth, most of lower teeth History of total left knee replacement (TKR) History of total right knee replacement (TKR) Family History Mother Family history of diabetes mellitus Colorectal cancer Heart disease Myocardial infarction Other No family history of adverse response to anesthesia Social History Smoking Status: Former smoker packs per day: 1; Years Smoked: 30; Cigarettes Per Day: 20; Second Hand Exposure: No; Do You Dip or Chew Tobacco: No; Tobacco Cessation Education Requested by Patient: No Hx Alcohol Use: No Hx Substance Use: No Preferred Language: Bulgarian Communication Ability: Effective 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 HENT: Normal exam with inspection. CV: Hearth rhythm is regular. Neck: Supple, no carotid bruits. Lungs: Non-labored and comfortable breathing. Abdomen: Soft, non-tender, non-distended. Skin: No rash or ecchymosis. Extremities: No edema or cyanosis NEUROLOGICAL EXAMINATION: Mental Status: Alert and oriented to place, person and time. Cranial Nerves: II-XII are intact. No nystagmus. Funduscopy: Normal looking optic discs. Motor: 5/5 in all extremities without asymmetry. Tone: Normal without spasticity or rigidity. Sensory: Intact to all sensory modalities except slightly decreased sensation in feet DTRs: 1+ all. No Babinski. Coordination: No dysmetria with FTN testing. Speech: Fluent. Comprehension is intact. Gait: Normal. No ataxia or abnormal walking pattern. Musculoskeletal: Normal muscle bulk, no atrophy. Results & Data ([facility]) Vital Signs (Past 12 Hours) Vital Signs Temp Pulse Pulse Resp BP Pulse Ox O2 Del Method 02/28/22 16:00 83 02/28/22 15:47 36.6 C 64 18 145/81 H 95 Room Air 02/28/22 12:25 36.5 C 73 20 147/85 H 95 Room Air 02/28/22 08:00 77 02/28/22 07:24 36.7 C 75 16 113/68 98 Room Air Laboratory Results Laboratory Results - last 24 hr 02/27/22 02/27/22 02/27/22 18:37 18:37 18:37 WBC 9.28 RBC 3.70 L Hgb 10.8 L Hct 32.0 L MCV 86.5 MCH 29.2 MCHC 33.8 RDW Std Deviation 46.6 H RDW Coeff of Ilana 14.7 H Plt Count 223 MPV 9.9 Immature Gran % (Auto) 0.5 Neut % (Auto) 73.6 Lymph % (Auto) 17.2 Amador % (Auto) 6.9 Eos % (Auto) 1.4 Baso % (Auto) 0.4 Neut # (Auto) 6.82 H Lymph # (Auto) 1.60 [place] # (Auto) 0.64 Eos # (Auto) 0.13 Baso # (Auto) 0.04 Immature Gran # (Auto) 0.05 H PT 11.4 INR 1.1 APTT 26.9 PTT Ratio 1.0 Sodium Potassium Chloride Carbon Dioxide Anion Gap BUN Creatinine Est Cr Clr Drug Dosing Est GFR ( Amer) Est GFR (Non-Af Amer) BUN/Creatinine Ratio Glucose POC Glucose Estimat Average Glucose Hemoglobin A1c Calcium Magnesium Total Bilirubin AST ALT Alkaline Phosphatase Troponin I High Sens Total Protein Albumin Globulin Albumin/Globulin Ratio Triglycerides Cholesterol LDL Cholesterol, Calc VLDL Cholesterol, Calc HDL Cholesterol Cholesterol/HDL Ratio Urine Color Urine Appearance Urine pH Ur Specific Otis Urine Protein Urine Glucose (UA) Urine Ketones Urine Blood Urine Nitrite Urine Bilirubin Urine Urobilinogen Ur Leukocyte Esterase Urine WBC (Auto) Urine RBC (Auto) U Hyaline Cast (Auto) U Epithel Cells (Auto) Urine Bacteria (Auto) SARS-CoV-2, RNA, NAAT Blood Type A Positive Antibody Screen NEGATIVE 02/27/22 02/27/22 02/27/22 18:37 19:15 20:12 WBC RBC Hgb Hct MCV MCH MCHC RDW Std Deviation RDW Coeff of Ilana Plt Count MPV Immature Gran % (Auto) Neut % (Auto) Lymph % (Auto) Amador % (Auto) Eos % (Auto) Baso % (Auto) Neut # (Auto) Lymph # (Auto) [place] # (Auto) Eos # (Auto) Baso # (Auto) Immature Gran # (Auto) PT INR APTT PTT Ratio Sodium 133 L Potassium 3.9 Chloride 98 Carbon Dioxide 26 Anion Gap 9 BUN 34 H Creatinine 1.61 H Est Cr Clr Drug Dosing Not Reportable Est GFR ( Amer) 47.8 Est GFR (Non-Af Amer) 41.2 BUN/Creatinine Ratio 21.1 H Glucose 247 H POC Glucose Estimat Average Glucose Hemoglobin A1c Calcium 8.3 L Magnesium 1.1 L Total Bilirubin 0.4 AST 15 ALT 14 Alkaline Phosphatase 125 H Troponin I High Sens 23.9 H Total Protein 6.2 Albumin 3.5 Globulin 2.7 Albumin/Globulin Ratio 1.3 Triglycerides Cholesterol LDL Cholesterol, Calc VLDL Cholesterol, Calc HDL Cholesterol Cholesterol/HDL Ratio Urine Color Yellow Urine Appearance Clear Urine pH 6.0 Ur Specific Otis 1.023 Urine Protein 1+ H Urine Glucose (UA) Negative Urine Ketones Negative Urine Blood Negative Urine Nitrite Negative Urine Bilirubin Negative Urine Urobilinogen Negative Ur Leukocyte Esterase Negative Urine WBC (Auto) 0 Urine RBC (Auto) 0-4 U Hyaline Cast (Auto) 0 U Epithel Cells (Auto) 0-5 Urine Bacteria (Auto) Negative SARS-CoV-2, RNA, NAAT NEGATIVE Blood Type Antibody Screen 02/27/22 02/28/22 02/28/22 23:04 00:42 05:17 WBC 9.20 RBC 3.68 L Hgb 10.5 L Hct 31.7 L MCV 86.1 MCH 28.5 MCHC 33.1 RDW Std Deviation 46.5 H RDW Coeff of Ilana 14.7 H Plt Count 236 MPV 10.3 Immature Gran % (Auto) 0.7 Neut % (Auto) 70.4 Lymph % (Auto) 19.8 [place] % (Auto) 7.2 Eos % (Auto) 1.2 Baso % (Auto) 0.7 Neut # (Auto) 6.49 Lymph # (Auto) 1.82 [place] # (Auto) 0.66 Eos # (Auto) 0.11 Baso # (Auto) 0.06 Immature Gran # (Auto) 0.06 H PT INR APTT PTT Ratio Sodium Potassium Chloride Carbon Dioxide Anion Gap BUN Creatinine Est Cr Clr Drug Dosing Est GFR ( Amer) Est GFR (Non-Af Amer) BUN/Creatinine Ratio Glucose POC Glucose 330 H* 266 H Estimat Average Glucose Hemoglobin A1c Calcium Magnesium Total Bilirubin AST ALT Alkaline Phosphatase Troponin I High Sens Total Protein Albumin Globulin Albumin/Globulin Ratio Triglycerides Cholesterol LDL Cholesterol, Calc VLDL Cholesterol, Calc HDL Cholesterol Cholesterol/HDL Ratio Urine Color Urine Appearance Urine pH Ur Specific Otis Urine Protein Urine Glucose (UA) Urine Ketones Urine Blood Urine Nitrite Urine Bilirubin Urine Urobilinogen Ur Leukocyte Esterase Urine WBC (Auto) Urine RBC (Auto) U Hyaline Cast (Auto) U Epithel Cells (Auto) Urine Bacteria (Auto) SARS-CoV-2, RNA, NAAT Blood Type Antibody Screen 02/28/22 02/28/22 02/28/22 05:17 05:17 08:04 WBC RBC Hgb Hct MCV MCH MCHC RDW Std Deviation RDW Coeff of Ilana Plt Count MPV Immature Gran % (Auto) Neut % (Auto) Lymph % (Auto) Amador % (Auto) Eos % (Auto) Baso % (Auto) Neut # (Auto) Lymph # (Auto) [place] # (Auto) Eos # (Auto) Baso # (Auto) Immature Gran # (Auto) PT INR APTT PTT Ratio Sodium 135 L Potassium 3.5 Chloride 101 Carbon Dioxide 26 Anion Gap 8 BUN 34 H Creatinine 1.64 H Est Cr Clr Drug Dosing 47.4 Est GFR ( Amer) 46.7 Est GFR (Non-Af Amer) 40.3 BUN/Creatinine Ratio 20.7 H Glucose 140 H POC Glucose 145 H Estimat Average Glucose Pending Hemoglobin A1c Pending Calcium 8.6 Magnesium Total Bilirubin AST ALT Alkaline Phosphatase Troponin I High Sens 33.5 H Total Protein Albumin Globulin Albumin/Globulin Ratio Triglycerides 346 H Cholesterol 138 LDL Cholesterol, Calc 45 VLDL Cholesterol, Calc 69 H HDL Cholesterol 24 Cholesterol/HDL Ratio 5.8 H Urine Color Urine Appearance Urine pH Ur Specific Otis Urine Protein Urine Glucose (UA) Urine Ketones Urine Blood Urine Nitrite Urine Bilirubin Urine Urobilinogen Ur Leukocyte Esterase Urine WBC (Auto) Urine RBC (Auto) U Hyaline Cast (Auto) U Epithel Cells (Auto) Urine Bacteria (Auto) SARS-CoV-2, RNA, NAAT Blood Type Antibody Screen 02/28/22 02/28/22 02/28/22 11:11 11:25 16:39 WBC RBC Hgb Hct MCV MCH MCHC RDW Std Deviation RDW Coeff of Ilana Plt Count MPV Immature Gran % (Auto) Neut % (Auto) Lymph % (Auto) Amador % (Auto) Eos % (Auto) Baso % (Auto) Neut # (Auto) Lymph # (Auto) Amador # (Auto) Eos # (Auto) Baso # (Auto) Immature Gran # (Auto) PT INR APTT PTT Ratio Sodium Potassium Chloride Carbon Dioxide Anion Gap BUN Creatinine Est Cr Clr Drug Dosing Est GFR ( Amer) Est GFR (Non-Af Amer) BUN/Creatinine Ratio Glucose POC Glucose 216 H 145 H Estimat Average Glucose Hemoglobin A1c Calcium Magnesium Total Bilirubin AST ALT Alkaline Phosphatase Troponin I High Sens 25.7 H Total Protein Albumin Globulin Albumin/Globulin Ratio Triglycerides Cholesterol LDL Cholesterol, Calc VLDL Cholesterol, Calc HDL Cholesterol Cholesterol/HDL Ratio Urine Color Urine Appearance Urine pH Ur Specific Otis Urine Protein Urine Glucose (UA) Urine Ketones Urine Blood Urine Nitrite Urine Bilirubin Urine Urobilinogen Ur Leukocyte Esterase Urine WBC (Auto) Urine RBC (Auto) U Hyaline Cast (Auto) U Epithel Cells (Auto) Urine Bacteria (Auto) SARS-CoV-2, RNA, NAAT Blood Type Antibody Screen Diagnostic Findings Chest X-Ray 02/27/22 18:10 XR chest 1V portable HISTORY: Stroke like symptoms. COMPARISON: Chest 12/23/2021. FINDINGS: No pneumothorax. No pleural effusions. The cardiac silhouette remains mildly enlarged. There are poststernotomy changes. No evidence for pulmonary edema. No new focal lung consolidations to suggest a pneumonia. Small linear density at the left lung base favor subsegmental atelectasis or scarring. IMPRESSION: Mild cardiomegaly. Otherwise, no acute process within the chest. ACT 112: Negative or not required by law. Electronically signed by: Josh Manuel M.D. 02/27/2022 6:[address] 02/27/22 18:[address] DOSE: HISTORY: Stroke Like Symptoms TECHNIQUE: Multiaxial CT images of the head were performed without the use of intravenous contrast. Automated exposure control was utilized for this study. A dose lowering technique was utilized adhering to the principles of ALARA. Comparison: Head CT 12/23/2021. Findings: The paranasal sinuses and mastoid air cells are clear. The calvarium and skull base are intact. There is no mass, hematoma, midline shift, acute infarct. White matter hypodensity is nonspecific but suggestive of microvascular ischemic change. The ventricles and sulci demonstrate mild age-related involutional changes. Impression: No significant change compared to the prior study. No acute intracranial abnormality. ACT 112: Negative or not required by law. Electronically signed by: Josh Manuel M.D. 02/27/2022 6:47 PM Head CTA 02/27/22 18:10 HEAD & NECK CTA HISTORY: Stroke Like Symptoms TECHNIQUE: Multiaxial CT images of the head were performed following the intravenous administration of contrast to evaluate the major cerebral vessels. Multiaxial CT images of the neck were also performed following the intravenous administration of contrast to evaluate the major cervical vessels. Maximum intensity projection images were also obtained. A dose lowering technique was utilized adhering to the principles of ALARA. COMPARISON: None. FINDINGS: There is no mass, hematoma, midline shift, or acute infarct. Moderate calcified plaque within the bilateral carotid siphons without significant stenosis. There is moderate calcified plaque within the distal bilateral vertebral arteries resulting in 50% focal stenosis within the distal left vertebral artery. There is mild stenosis within the distal right vertebral artery. The basilar artery is widely patent. The bilateral ACAs, MCAs, and community development aide show no significant stenosis, occlusion, aneurysm. The major dural venous sinuses appear patent. The aortic arch and proximal great vessels are widely patent. There is no significant stenosis, occlusion, or dissection identified within the bilateral common carotid, internal carotid, or vertebral arteries. A few prominent right paratracheal lymph nodes measuring up to 1 cm short axis diameter. Mild to moderate calcified plaque within the bilateral carotid bifurcations. IMPRESSION: 1. No significant stenosis, occlusion, or aneurysm within the [place] of [place]. 2. No significant stenosis, occlusion, or dissection identified within the common or internal carotid arteries. 3. Mild to moderate focal stenosis within the distal bilateral vertebral arteries due to the calcified plaque. 4. A few mildly enlarged right paratracheal lymph nodes measuring up to 1 cm in short axis diameter.. ACT 112: Negative or not required by law. Electronically signed by: Josh Manuel M.D. 02/27/2022 6:55 PM Neck CTA 02/27/22 18:10 HEAD & NECK CTA HISTORY: Stroke Like Symptoms TECHNIQUE: Multiaxial CT images of the head were performed following the intravenous administration of contrast to evaluate the major cerebral vessels. Multiaxial CT images of the neck were also performed following the intravenous administration of contrast to evaluate the major cervical vessels. Maximum intensity projection images were also obtained. A dose lowering technique was utilized adhering to the principles of ALARA. COMPARISON: None. FINDINGS: There is no mass, hematoma, midline shift, or acute infarct. Moderate calcified plaque within the bilateral carotid siphons without significant stenosis. There is moderate calcified plaque within the distal bilateral vertebral arteries resulting in 50% focal stenosis within the distal left vertebral artery. There is mild stenosis within the distal right vertebral artery. The basilar artery is widely patent. The bilateral ACAs, MCAs, and community development aide show no significant stenosis, occlusion, aneurysm. The major dural venous sinuses appear patent. The aortic arch and proximal great vessels are widely patent. There is no significant stenosis, occlusion, or dissection identified within the bilateral c ommon carotid, internal carotid, or vertebral arteries. A few prominent right paratracheal lymph nodes measuring up to 1 cm short axis diameter. Mild to moderate calcified plaque within the bilateral carotid bifurcations. IMPRESSION: 1. No significant stenosis, occlusion, or aneurysm within the [place] of [place]. 2. No significant stenosis, occlusion, or dissection identified within the common or internal carotid arteries. 3. Mild to moderate focal stenosis within the distal bilateral vertebral arteries due to the calcified plaque. 4. A few mildly enlarged right paratracheal lymph nodes measuring up to 1 cm in short axis diameter.. ACT 112: Negative or not required by law. Electronically signed by: Josh Manuel M.D. 02/27/2022 6:55 PM Brain MRI 02/28/22 22:25 MR brain wo/w con HISTORY: 76 years-old Male stroke like symptoms acute strokelike symptoms COMPARISON: Head CT 02/27/2022, brain MRI 12/23/2021 TECHNIQUE: Multiplanar multisequence MRI of the brain was obtained both with and without the use of 10 mL Gadavist FINDINGS: No restricted diffusion to suggest acute or subacute infarct. Midline structures appear unremarkable. Degenerative changes of the imaged cervical spine. No acute intracranial hemorrhage, midline shift, abnormal extra axial collection, hydrocephalus or intracranial mass. Age-related involutional changes. Moderate T2/FLAIR hyperintense foci are noted throughout the white matter. There is suggested gliosis of the left occipital lobe which may represent a chronic infarct. Chronic lacunar infarcts of the cerebellum. No abnormal enhancement. Cerebral venous sinuses and major arterial flow voids appear patent. Skull, orbits and soft tissues are unremarkable. Prior bilateral lens repair. IMPRESSION: 1. No acute intracranial abnormality. No acute or subacute infarct. 2. No abnormal enhancement. ACT 112: Negative or not required by law. The above report was generated using voice recognition software. It may contain grammatical, syntax or spelling errors. Electronically signed by: Priyank Guadarrama M.D. 02/28/2022 10:13 AM (1) Hypertension Hypertension type: unspecified Qualified Code(s): I10 - Essential (primary) hypertension
--- NOTE | 2022-02-28 17:11 | Discharge Summary ---
Discharge Summary Date of Service February 28, 2022 Notes For Next Care Provider started on Plavix with h/o GI bleeding, please monitor for recurrence of this. Medication Changes From Visit Plavix 75mg PO daily Pantoprazole 40mg PO daily Admission HPI Per Admitting Provider HISTORY OF PRESENT ILLNESS: A 76-year-old male with past medical history significant for type 2 diabetes, diabetic polyneuropathy, peripheral artery disease, hypothyroidism, chronic gout, obstructive sleep apnea, on BiPAP; chronic diastolic CHF, hypertension, history of CVA, history of Fajardo's esophagus, obesity, BPH, chronic kidney disease stage III, venous stasis dermatitis of both lower extremities, presents with stroke-like symptoms. The patient lives with his . The patient went to a nap and seems cat jumped on him and as he was not waking up, tried to wake him up. He woke up but was not able to speak and he could not understand what the was speaking. She called their son and he was not improving, and EMS was called. The patient says, while he was in the ambulance, he was able to talk. Stroke alert was called. When the stroke alert doctor saw the patient, the patient was back to his baseline and also he had history of significant bleeding for any blood thinners, ASPIRIN or COUMADIN in the past and deemed not a candidate for TPA as per ER.. and the patient do not want patient to take aspirin or any blood thinners because of bleeding risk Patient says he ambulated himself to the bathroom in the ER.Hemodynamics are stable. Blood pressure running somewhat on the higher side. Received a dose of labetalol in the ER and also his home Coreg. His magnesium was low at 1.1, received replacement in the ER. Has a mild headache. No dizziness, no double vision, no earache, no runny nose, no sore throat, no cough, no difficulty swallowing. No fevers, having some chills. Denies any chest pain, no shortness of breath, no nausea, no abdominal pain. Normal bowel and bladder movements. No blood in the stools. thinks since he has started on Ozempic in September, he is having similar kind of symptoms. In December patient was in the hospital with dizziness and stroke workup was negative and his sugars are now running somewhat high at home and as per the patient his doctor was planning to increase his Ozempic dose, but the alexander franco ozempic is causing these symptoms. Admission Exam Per Admitting Provider PHYSICAL EXAMINATION: GENERAL: The patient is of moderate build, not in acute distress. VITAL SIGNS: Temperature 36.7, pulse 86, respiratory rate 18, blood pressure 150/100 currently, oxygen 97% on room air. HEENT: Pupils equal, round and reactive to light. Extraocular muscles intact. Head is atraumatic. No facial droop, no tongue deviation. Speech is clear. Oral mucosa moist. NECK: No JVD, no neck masses. CARDIOVASCULAR: S1 and S2 heard. Regular rate and rhythm. No murmur, no gallop. RESPIRATORY SYSTEM: Normal AP diameter. No accessory muscle use. No wheezing, no crackles. ABDOMEN: Soft, bowel sounds present, nontender, no distention. CENTRAL NERVOUS SYSTEM: Alert and oriented. Extraocular muscles intact. Speech is clear. No facial droop, no tongue deviation. Power 5/5 in all extremities. Coordination of movements normal. No pronator drift. Sensation is intact. EXTREMITIES: Mild pedal edema present, no erythema seen. Principal Dx & Hospital Course #1 = Principal Diagnosis (1) TIA (transient ischemic attack): (2) Hypertension: (3) S/P AVR (aortic valve replacement): (4) KOLE (iron deficiency anemia): (5) Hypothyroidism: Plan Patient had a recurrence of strokelike symptoms lasting approximately 30 minutes last month and again just prior to arrival. He also had an associated headache that lasted 24 hours, and headaches are abnormal for him. He did recently start Ozempic a few months ago but otherwise has no medication changes. He was notably sleep-deprived the night prior to onset of symptoms, then was not using CPAP so was difficult to arouse from sleep. This was followed by his speech disturbance. Overnight he was continued on his Lipitor 80 mg but was not given any aspirin or Plavix or DVT. Prophylaxis because of a significant concern on the patient's part for having blood in the past with aspirin plus warfarin. He denies any significant allergy to aspirin but is afraid to take it secondary to bleeding. He also has ongoing iron deficiency anemia and takes iron supplementation. He reports multiple EGDs and C-scope's in the past with no clear source of bleed. Stroke workup including brain MRI was unremarkable. He was started on Plavix 75mg daiy for secondary stroke prophylaxis as his symptoms may have been consistent with TIA. Echocardiogram revealed no acute abnormalities. He has remained in normal sinus rhythm overnight on telemetry. All symptoms have resolved and he is ambulating and mentating at baseline. He was stable for discharge with close primary care followup recommended. Discharge Exam CONSTITUTIONAL: WNWD, vitals as above, generally well-appearing, NAD EYES: EOMI bilaterally, PERRL, normal conjunctivae, no scleral icterus ENT: external ear and nose normal, oropharynx clear, MMM NECK: trachea midline, no lymphadenopathy, normal thyroid RESPIRATORY: clear to auscultation bilaterally, no crackles, rales or wheezes, normal respiratory effort CARDIOVASCULAR: regular rate and rhythm, 3/6 VANESSA,no gallops or rubs, no JVD, no peripheral edema CHEST: inspection of chest was normal GASTROINTESTINAL: soft, nontender, ND, no guarding MUSCULOSKELETAL: strength 5/5 throughout (upper and lower extremities, hand [employer], fnger spread all 5/5), head is normocephalic and atraumatic, neck supple, normal palpation of chest wall without tenderness SKIN: warm and dry NEUROLOGIC: CN 2-12 grossly intact, no sensory deficit, normal cognition, normal speech, no tremor PSYCHIATRIC: alert cooperative and oriented to person, place and time. Euthymic mood, makes good eye contact, language grossly intact, recent and remote memory grossly intact. Updated Medication List Medication Instructions Recorded Confirmed Type allopurinol 300 mg tablet 300 mg PO QAM 09/06/18 02/27/22 History atorvastatin 80 mg tablet 80 mg PO QPM 09/06/18 02/27/22 History carvedilol 25 mg tablet 50 mg PO BID 09/06/18 02/27/22 History cholecalciferol (vitamin D3) 50 2,000 unit PO QAM 09/06/18 02/27/22 History mcg (2,000 unit) tablet cyanocobalamin (vitamin B-12) 1,000 mcg PO QAM 09/06/18 02/27/22 History 1,000 mcg tablet (Vitamin B-12) ferrous sulfate 325 mg (65 mg 325 mg PO QPM 09/06/18 02/27/22 History iron) tablet furosemide 80 mg tablet 80 mg PO QAM 09/06/18 02/27/22 History latanoprost 0.005 % eye drops 1 drp OPB PM 09/06/18 02/27/22 History (Xalatan) levothyroxine 50 mcg tablet 50 mcg PO QAM 09/06/18 02/27/22 History magnesium oxide 400 mg PO QAM 09/06/18 02/27/22 History furosemide 40 mg tablet (Lasix) 40 mg PO QPM #30 tabs 12/20/20 02/27/22 Rx insulin degludec 100 unit/mL (3 40 unit subcut HS 12/23/21 02/27/22 History mL) subcutaneous pen (Tresiba FlexTouch U-100 insulin) metformin 500 mg tablet 500 mg PO BIDM 12/23/21 02/27/22 History clonidine HCl 0.2 mg tablet 0.2 mg PO BID 02/27/22 02/27/22 History losartan 100 mg tablet 100 mg PO DAILY 02/27/22 02/27/22 History clopidogrel 75 mg tablet (Plavix) 75 mg PO DAILY #30 tabs 02/28/22 Rx pantoprazole 40 mg tablet,delayed 40 mg PO QAM #30 tabs 02/28/22 Rx release semaglutide 0.25 mg or 0.5 mg (2 0.5 mg subcut WK 02/28/22 02/28/22 History mg/1.5 mL) subcutaneous pen injector (Ozempic) Hospital Stay Data Consultations 02/27/22 19:28 ED Decision to Admit Stat 02/28/22 08:00 Consult Neurology Routine Diagnostic Imagining Performed 02/27/22 18:10 CT angio head w con Stat CT angio neck with con Stat CT head/brain wo con Stat 02/28/22 22:25 MR brain wo/w con Urgent Pending Results Patient Have Any Pending Studies at Discharge: No Discharge Instructions Given to Patient (Per Discharging Provider) Please start Plavix 75mg daily. This is a blood thinner that may help to prevent future episodes of what you experienced, which may have been a "mini stroke." Please stop this medication immediately if you experience any gastrointestinal bleeding, and seek immediate medical attention. There is a possible interaction between proton pump inhibitors such as Prilosec and Plavix. This should not decrease the clinical efficacy of Plavix, as shown in studies. However, to minimize this risk, it is recommended that you switch from Omeprazole to Pantoprazole. Please continue Lipitor, which is also helpful in preventing future stroke sym ptoms. It is recommended that you follow-up with your primary care physician in the next week to ensure you are tolerating this medication without issue, and to ensure you have not had a re-emergence of symptoms. It was a pleasure taking care of you! Please call if you have any questions or problems. You can reach a [facility] hospitalist on duty at [facility] 24 hours a day by calling [phone]. Take care of yourself. Jannette Vick, DO [facility] Hospitalist Total Time Total Time Spent Total Time Spent (In Minutes): 60
[2022-02-28] MEDS ORDERED: STROKE PATIENT DISCHARGE STA (17:12)
--- NOTE | 2022-02-28 17:17 | Communication Note ---
Date of Service: February 28, 2022 Code 44 Attestation: 76 year old male was admitted with TIA and relevant investigations were unremarkable . He was evaluated by the neurologist and he was stable to be discharged by the attending. By CMS guidelines, a determination that the admission or continued stay is not medically necessary has been made by a member of the UR committee and a phys ician for this hospital stay, therefore a Code 44 will be completed and the Inpatient admission will be changed to outpatient. Dr Rubin Smith Member UR Committee
[2022-03-01 07:33] LABS: Estimated Average Glucose 232 mg/dl; Hemoglobin A1C 9.7 % (4.5-5.6)
--- NOTE | 2022-03-08 12:52 | Coding Query ---
CODING QUERY To promote full compliance with coding requirements relating to patient care, provider participation is requested in all cases of remote inpatient coder uncertainty. Please assist us with the question(s) below: Coding Question(s): Pt admitted s/p expressive aphasia for 30 min at home. Neuro evaluated stroke- like symptoms. NIHSS Score 0 . Please document the diagnosis , after study, that was responsible for the aphasia/stroke like symptoms. Thanks for your help! Alex Covarrubias [facility] Physician's Response(s): It is possible that his sleep deprivation contributed, however, we could not rule out TIA which was the working diagnosis at discharge. Thank you! sms Principal Diagnosis: "that condition established after study, to be chiefly responsible for occasioning the admission of the patient to the hospital for care." Co-Existing Principal Diagnosis: "when two or more diagnoses equally meet the criteria for principal diagnosis as determined by the circumstances of admission, diagnostic work up, and/or therapy provided, and the Alphabetic Index, Tabular List, or another coding guideline does not provide sequencing direction, any one of the diagnoses may be sequenced first." "When the physician has documented what appears to be a current diagnosis in the body of the record, but has not included the diagnosis in the final diagnostic statement, the physician should be asked whether the diagnosis should be added." (Source Coding [facility] 2 QTR90. p3-4) PADMA
== END 2022-02-28 17:53 | disposition home or self-care (01) | DRG 69 ==
LOC: ED 18:33 → 4W 20:18
DX: I13.0 Hypertensive heart and chronic kidney disease with heart failure and stage 1 through stage 4 chronic kidney disease, or unspecified chronic kidney disease; N18.30 Chronic kidney disease, stage 3 unspecified; Z72.820 Sleep deprivation; I50.32 Chronic diastolic (congestive) heart failure; Z95.2 Presence of prosthetic heart valve; Z88.6 Allergy status to analgesic agent; I44.0 Atrioventricular block, first degree; K22.70 Barrett's esophagus without dysplasia; Z96.653 Presence of artificial knee joint, bilateral; E83.42 Hypomagnesemia; E11.42 Type 2 diabetes mellitus with diabetic polyneuropathy; E11.22 Type 2 diabetes mellitus with diabetic chronic kidney disease; R29.700 NIHSS score 0; H40.9 Unspecified glaucoma; Z79.890 Hormone replacement therapy; G45.9 Transient cerebral ischemic attack, unspecified; Z87.891 Personal history of nicotine dependence; Z86.73 Personal history of transient ischemic attack (TIA), and cerebral infarction without residual deficits; E03.9 Hypothyroidism, unspecified; D50.9 Iron deficiency anemia, unspecified; R47.1 Dysarthria and anarthria; Z79.4 Long term (current) use of insulin; R47.01 Aphasia